=== PATIENT | female | born 1945 | race Caucasian/White ===

== ENCOUNTER → 2016-12-23 | Outpatient (CLI) | payer OTHER ==
[~2016-12-23] MED LIST: CARV25TA2 PO; CPR/500 PO; CRD60 PO; DILT120C68 PO; IBUP-1050 PO; OXYC1TAB3 PO; POTA20TA13 PO; PRED20TA PO; PROC1TAB5 PO; ZFR/8 PO
--- NOTE | 2016-12-23 10:06 | DIAGNOSTIC IMAGING REPORT ---
ULTRASOUND RIGHT UPPER QUADRANT ABDOMEN CLINICAL HISTORY: Right upper quadrant abdominal pain. COMPARISON STUDY: No priors. TECHNIQUE: Real-time, grayscale, and color flow sonography of the right upper quadrant of the abdomen was performed. Images are reviewed in the transverse and longitudinal planes. FINDINGS: Liver: The liver is normal in size and echotexture. There is central intrahepatic biliary ductal dilatation. The main portal vein is patent. There is a heterogeneously hypoechoic lesion in the right lobe of the liver which measures 13.7 x 7.2 x 8.1 cm. Gallbladder: The gallbladder is decompressed and contains a large mobile shadowing gallstone which measures at least 1.3 cm. There is no gallbladder wall thickening or pericholecystic fluid. A sonographic Lopez's sign is reportedly absent. The common bile duct measures up to 0.8 cm in diameter. Pancreas: There is a hypoechoic ovoid structure either within or adjacent to the pancreatic head measuring up to 2.3 cm. Visualized portions of the pancreatic head and body are otherwise normal in appearance. Right kidney: Survey images of the right kidney demonstrate normal size and echotexture. There is no hydronephrosis. Ascites: None. IMPRESSION: 1. There is a heterogeneous hypoechoic mass lesion identified in the right lobe of the liver which measures up to 13.7 cm. This is pathologically indeterminant. Follow-up with a liver protocol abdominal CT scan is recommended for further assessment. 2. There is intra and extrahepatic biliary ductal dilatation. 3. Cholelithiasis without sonographic evidence of acute cholecystitis. 4. There is a 2.3 cm ovoid hypoechoic structure either within or adjacent to the pancreatic head. This could also be assessed on the liver protocol CT. Electronically signed by: Jorge Bass M.D. 12/23/2016 10:05 AM Dictated Date/Time: 12/23/2016 10:01 AM
== END | disposition home or self-care (01) ==
LOC: C.ULTR 09:01
PROVIDERS: ATTEND Internal Medicine
DX: R07.9 Chest pain, unspecified (principal); R10.9 Unspecified abdominal pain; K76.9 Liver disease, unspecified; K83.8 Other specified diseases of biliary tract; K80.20 Calculus of gallbladder without cholecystitis without obstruction; K86.89 Other specified diseases of pancreas

== ENCOUNTER → 2016-12-31 | Outpatient (CLI) | payer OTHER ==
--- NOTE | 2016-12-31 09:49 | DIAGNOSTIC IMAGING REPORT ---
CT SCAN OF THE ABDOMEN COMBO LIVER PROTOCOL CLINICAL HISTORY: Generalized abdominal pain. Abnormal ultrasound. Possible liver and pancreatic lesions. COMPARISON STUDY: Abdominal ultrasound dated 12/23/2016. TECHNIQUE: Before and following the IV administration of 119 cc of Optiray 320, CT scan of the abdomen is performed from the lung bases to the pelvic inlet utilizing the liver protocol. Images are reviewed in the axial, sagittal, and coronal planes. IV contrast was administered without complication. Automated dose control exposure was utilized. CT DOSE: 1049.58 mGy.cm FINDINGS: Lung bases: The heart is top normal in size and without pericardial effusion. There is left basilar atelectasis. Lung bases are otherwise clear. Liver: The contrast-enhanced liver is normal in size, contour, and attenuation. There is a heterogeneous low-attenuation mass lesion identified in the right lobe of the liver spanning segments VII and VIII. This is best seen on axial image #55 and measures approximately 7.5 x 6.5 x 5.5 cm. This lesion does not show arterial phase hypervascularity. The mass extends to the hepatic hilum, and likely invades the common hepatic duct which is filled with soft tissue attenuation material and demonstrates wall thickening and enhancement. There is mild stranding in the hepatic hilum. This causes moderate intrahepatic biliary ductal dilatation. No additional hepatic lesions are identified. There is an associated GIULIA in the right lobe of liver. Hepatic and portal vasculature: Hepatic arterial anatomy is conventional. The hepatic veins, portal veins, superior mesenteric vein, and splenic vein are patent. Gallbladder: Cholelithiasis is noted. The gallbladder is nondistended. Nonspecific pericholecystic stranding is identified. Spleen: Normal in size and attenuation. Pancreas: There is moderate glandular atrophy of the pancreas which is normal in appearance. The pancreatic duct is normal in caliber. Adrenal glands: Unremarkable. Kidneys: No renal calculi are seen on the unenhanced series. The contrast enhanced kidneys demonstrate mild cortical atrophy and are without hydronephrosis. The kidneys enhance symmetrically. Scattered subcentimeter cortical hypodensities likely represent cysts but are too small for definitive characterization. Small parapelvic cysts are noted bilaterally. There is a retroaortic left renal vein. Abdominal vasculature: The abdominal aorta is normal in course and caliber noting mild atherosclerotic calcification. Stomach and bowel: There is a large hiatal hernia, with the majority of the stomach located in the thoracic cavity. The duodenum is normal in configuration. Visualized portions of the small bowel and colon are normal in caliber. There is no bowel obstruction. Several small bowel loops are matted along the ventral abdominal wall, likely representing adhesions. Peritoneum: There is no intraperitoneal free air or abdominal ascites. There is a small fat-containing umbilical hernia. There is evidence of previous ventral hernia repair. Lymphadenopathy: There is centrally necrotic lymphadenopathy seen within the cyndy hepatis/portacaval region. This measures 3.7 x 4.1 cm in aggregate dimension as seen on image #125. A 1.4 cm gastrohepatic node is seen on image #96. Lymph nodes at the gastroesophageal junction measure up to 1.5 cm seen on image #49. Skeletal structures: The skeletal structures are osteopenic. Mild lumbosacral spondylosis is observed. A small hemangioma is noted in the body of T12. No lytic or blastic lesions are seen. IMPRESSION: 1. There is a large and heterogeneous mass lesion in the right lobe of liver measuring up to 7.5 cm as detailed above. No additional hepatic masses are identified. A primary hepatic neoplasm such as cholangiocarcinoma is favored. Enhancement appendix are not typical for hepatocellular carcinoma. Metastatic disease is considered less likely but is a differential consideration. ERCP is recommended for further assessment. 2. The mass lesion extends to the hepatic hilum and invades the common hepatic duct. There is moderate associated intrahepatic biliary ductal dilatation. 3. Centrally necrotic cyndy hepatic/portacaval lymphadenopathy as well as additional enlarged upper abdominal lymph nodes are consistent with shandra metastasis. 4. Cholelithiasis is noted. There is nonspecific pericholecystic inflammation. Correlate clinically for evidence of acute cholecystitis. 5. Large hiatal hernia. 6. The hepatic and portal vessels are patent. 7. Additional findings as above. Electronically signed by: Jorge Bass M.D. 12/31/2016 9:48 AM Dictated Date/Time: 12/31/2016 9:32 AM
== END | disposition home or self-care (01) ==
LOC: C.CTS 08:33
PROVIDERS: ATTEND Internal Medicine
DX: R10.9 Unspecified abdominal pain (principal); R93.8 Abnormal findings on diagnostic imaging of other specified body structures

== ENCOUNTER → 2017-01-01 | Outpatient (CLI) | payer OTHER ==
[2017-01-01 12:37] LABS: BASO % 0.4 %; BASO ABS # 0.03 K/uL (0-0.2); COMPLETE YES; EOS % 3.7 %; HEMATOCRIT 35.3 % (37-47); IG% 0.6 %; LYMPH % 10.9 %; LYMPH ABS # 0.74 K/uL (1.2-3.4); MEAN CELL VOLUME 74.2 fL (80-100); MEAN CORPUSCULAR HEMOGLOBIN 24.4 pg (25-34); MEAN CORPUSCULAR HGB CONC 32.9 g/dl (32-36); MEAN PLATELET VOLUME 11.1 fL (7.4-10.4); MONO % 11.1 %; NEUT % 73.3 %; PLATELET COUNT 229 K/uL (130-400); RED BLOOD COUNT 4.76 M/uL (4.2-5.4); WHITE BLOOD COUNT 6.78 K/uL (4.8-10.8)
[2017-01-01 12:55] LABS: ALT/SGPT 215 U/L (12-78); AMYLASE 33 U/L (25-115); BLOOD UREA NITROGEN 7 mg/dl (7-18); BUN/CREATININE RATIO 9.3 (10-20); CALCIUM 9.6 mg/dl (8.5-10.1); CARBON DIOXIDE 20 mmol/L (21-32); CHLORIDE 106 mmol/L (98-107); CREATININE 0.75 mg/dl (0.60-1.20); GLUCOSE 127 mg/dl (70-99); POTASSIUM 3.5 mmol/L (3.5-5.1); SODIUM 138 mmol/L (136-145)
[2017-01-01 13:05] LABS: ALB/GLOB RATIO 0.6 (0.9-2); ALKALINE PHOSPHATASE 692 U/L (45-117); AST/SGOT 280 U/L (15-37)
== END | disposition home or self-care (01) ==
LOC: C.LABBFT 09:52
PROVIDERS: ATTEND Internal Medicine
DX: R07.9 Chest pain, unspecified (principal); R10.9 Unspecified abdominal pain; R16.0 Hepatomegaly, not elsewhere classified

== ENCOUNTER 2017-01-02 14:21 | Inpatient (IN) | payer OTHER ==
[~2017-01-02] VITALS: Ht 167.6 cm; Wt 77.0 kg
[2017-01-02] MEDS ORDERED: SODIUM CHLORIDE 0.9% 1000ML 1,000 ML IV STA (14:24)
--- NOTE | 2017-01-02 14:48 | EMERGENCY ROOM VISIT NOTE ---
History Report prepared by Tato: True Carmona Under the Supervision of: Dr. Rick Lazo M.D. First contact with patient: 14:24 Chief Complaint: HYPOTENSION Stated Complaint: LOW BP History of Present Illness The patient is a 71 year old female who presents to the Emergency Room with complaints of sudden hypotension beginning a few hours prior to arrival. As per daughter, the patient associates palpitations, weakness, fatigue, pale skin, and decreased appetite with today's symptoms. She notes the patient's palpitations and weakness have been going on for about two weeks. The daughter states the patient previously had imaging performed for a possible liver tumor. She notes the patient has a history of hypertension. The patient denies abdominal pain. 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 Review of Systems See HPI for pertinent positives & negatives. A total of 10 systems reviewed and were otherwise negative. Past Medical & Surgical Medical Problems: (1) Hypertension Family History Patient reports no known family medical history. Social History Smoking Status: Never Smoker Marital Status: Occupation Status: retired Current/Historical Medications No Active Prescriptions or Reported Meds Allergies Coded Allergies: No Known Allergies (Unverified , 01/02/17) Physical Exam Vital Signs Date Time Temp Pulse Resp B/P Pulse Ox O2 Delivery O2 Flow Rate FiO2 01/02/17 16:41 98 18 136/94 96 Room Air 01/02/17 16:37 106 18 136/94 96 Room Air 01/02/17 15:51 101 23 01/02/17 15:50 98 01/02/17 15:46 107 19 117/85 01/02/17 15:43 123/88 01/02/17 15:41 102 22 01/02/17 15:38 115/90 01/02/17 15:36 107 20 01/02/17 15:34 124/81 01/02/17 15:31 114 18 01/02/17 15:30 130/82 01/02/17 15:26 156 18 01/02/17 15:21 157 18 129/94 96 Room Air 163 109/80 172 101/68 01/02/17 15:21 153 21 01/02/17 15:16 158 18 01/02/17 15:11 163 22 101/68 01/02/17 15:10 109/80 01/02/17 15:09 129/94 01/02/17 15:08 162 01/02/17 15:06 159 23 01/02/17 15:01 161 21 01/02/17 14:56 123/75 01/02/17 14:29 37.0 88 20 120/79 99 Room Air Physical Exam CONSTITUTIONAL: Mild distress. HEENT: No icterus, moist mucous membranes NECK: No meningismus, trachea is midline. CARDIOVASCULAR: Regular rate, normal perfusion RESPIRATORY: Unlabored breathing. Clear to auscultation. GASTROINTESTINAL: Non-tender GENITOURINARY: No flank tenderness MUSCULOSKELETAL: Full range of motion NEUROLOGIC: No acute gross focal deficits. PSYCHIATRIC: Normal affect SKIN: Appears slightly jaundiced. Medical Decision & Procedures ER Provider Diagnostic Interpretation: Previous CT scan on 12/31/16: CT SCAN OF THE ABDOMEN COMBO LIVER PROTOCOL CLINICAL HISTORY: Generalized abdominal pain. Abnormal ultrasound. Possible liver and pancreatic lesions. COMPARISON STUDY: Abdominal ultrasound dated 12/23/2016. TECHNIQUE: Before and following the IV administration of 119 cc of Optiray 320, CT scan of the abdomen is performed from the lung bases to the pelvic inlet utilizing the liver protocol. Images are reviewed in the axial, sagittal, and coronal planes. IV contrast was administered without complication. Automated dose control exposure was utilized. CT DOSE: 1049.58 mGy.cm FINDINGS: Lung bases: The heart is top normal in size and without pericardial effusion. There is left basilar atelectasis. Lung bases are otherwise clear. Liver: The contrast-enhanced liver is normal in size, contour, and attenuation. There is a heterogeneous low-attenuation mass lesion identified in the right lobe of the liver spanning segments VII and VIII. This is best seen on axial image #55 and measures approximately 7.5 x 6.5 x 5.5 cm. This lesion does not show arterial phase hypervascularity. The mass extends to the hepatic hilum, and likely invades the common hepatic duct which is filled with soft tissue attenuation material and demonstrates wall thickening and enhancement. There is mild stranding in the hepatic hilum. This causes moderate intrahepatic biliary ductal dilatation. No additional hepatic lesions are identified. There is an associated GIULIA in the right lobe of liver. Hepatic and portal vasculature: Hepatic arterial anatomy is conventional. The hepatic veins, portal veins, superior mesenteric vein, and splenic vein are patent. Gallbladder: Cholelithiasis is noted. The gallbladder is nondistended. Nonspecific pericholecystic stranding is identified. Spleen: Normal in size and attenuation. Pancreas: There is moderate glandular atrophy of the pancreas which is normal in appearance. The pancreatic duct is normal in caliber. Adrenal glands: Unremarkable. Kidneys: No renal calculi are seen on the unenhanced series. The contrast enhanced kidneys demonstrate mild cortical atrophy and are without hydronephrosis. The kidneys enhance symmetrically. Scattered subcentimeter cortical hypodensities likely represent cysts but are too small for definitive characterization. Small parapelvic cysts are noted bilaterally. There is a retroaortic left renal vein. Abdominal vasculature: The abdominal aorta is normal in course and caliber noting mild atherosclerotic calcification. Stomach and bowel: There is a large hiatal hernia, with the majority of the stomach located in the thoracic cavity. The duodenum is normal in configuration. Visualized portions of the small bowel and colon are normal in caliber. There is no bowel obstruction. Several small bowel loops are matted along the ventral abdominal wall, likely representing adhesions. Peritoneum: There is no intraperitoneal free air or abdominal ascites. There is a small fat-containing umbilical hernia. There is evidence of previous ventral hernia repair. Lymphadenopathy: There is centrally necrotic lymphadenopathy seen within the cyndy hepatis/portacaval region. This measures 3.7 x 4.1 cm in aggregate dimension as seen on image #125. A 1.4 cm gastrohepatic node is seen on image #96. Lymph nodes at the gastroesophageal junction measure up to 1.5 cm seen on image #49. Skeletal structures: The skeletal structures are osteopenic. Mild lumbosacral spondylosis is observed. A small hemangioma is noted in the body of T12. No lytic or blastic lesions are seen. IMPRESSION: 1. There is a large and heterogeneous mass lesion in the right lobe of liver measuring up to 7.5 cm as detailed above. No additional hepatic masses are identified. A primary hepatic neoplasm such as cholangiocarcinoma is favored. Enhancement appendix are not typical for hepatocellular carcinoma. Metastatic disease is considered less likely but is a differential consideration. ERCP is recommended for further assessment. 2. The mass lesion extends to the hepatic hilum and invades the common hepatic duct. There is moderate associated intrahepatic biliary ductal dilatation. 3. Centrally necrotic cyndy hepatic/portacaval lymphadenopathy as well as additional enlarged upper abdominal lymph nodes are consistent with shandra metastasis. 4. Cholelithiasis is noted. There is nonspecific pericholecystic inflammation. Correlate clinically for evidence of acute cholecystitis. 5. Large hiatal hernia. 6. The hepatic and portal vessels are patent. 7. Additional findings as above. Electronically signed by: Jorge Bass M.D. 12/31/2016 9:48 AM Laboratory Results 01/02/17 15:05 Red Blood Count 4.92, Mean Corpuscular Volume 71.5, Mean Corpuscular Hemoglobin 24.2, Mean Corpuscular Hemoglobin Concent 33.8, Mean Platelet Volume 10.0, Neutrophils (%) (Auto) 79.5, Lymphocytes (%) (Auto) 7.5, Monocytes (%) (Auto) 11.4, Eosinophils (%) (Auto) 1.1, Basophils (%) (Auto) 0.3, Neutrophils # (Auto ) 8.48, Lymphocytes # (Auto) 0.80, Monocytes # (Auto) 1.21, Eosinophils # (Auto ) 0.12, Basophils # (Auto) 0.03 01/02/17 15:05 Test 01/02/17 14:56 01/02/17 15:05 Urine Color ORANGE Urine Appearance TURBID (CLEAR) Urine pH 5.5 (4.5-7.5) Urine Specific [place] 1.020 (1.000-1.030) Urine Protein 2+ (NEG) Urine Glucose (UA) TRACE (NEG) Urine Ketones NEG (NEG) Urine Occult Blood NEG (NEG) Urine Nitrite POS (NEG) Urine Bilirubin 3+ (NEG) Urine Urobilinogen NEG (NEG) Urine Leukocyte Esterase MODERATE (NEG) Urine WBC (Auto) 10-30 /hpf (0-5) Urine RBC (Auto) 5-10 /hpf (0-4) Urine Hyaline Casts (Auto) 0 /lpf (0-5) Urine Epithelial Cells (Auto) >30 /lpf (0-5) Urine Bacteria (Auto) 3+ (NEG) Urine Crystals URIC ACID (NONE PRSENT) Urine Pathogenic Casts /lpf (0) White Blood Count 10.66 K/uL (4.8-10.8) Red Blood Count 4.92 M/uL (4.2-5.4) Hemoglobin 11.9 g/dL (12.0-16.0) Hematocrit 35.2 % (37-47) Mean Corpuscular Volume 71.5 fL (80-100) Mean Corpuscular Hemoglobin 24.2 pg (25-34) Mean Corpuscular Hemoglobin Concent 33.8 g/dl (32-36) Platelet Count 267 K/uL (130-400) Mean Platelet Volume 10.0 fL (7.4-10.4) Neutrophils (%) (Auto) 79.5 % Lymphocytes (%) (Auto) 7.5 % Monocytes (%) (Auto) 11.4 % Eosinophils (%) (Auto) 1.1 % Basophils (%) (Auto) 0.3 % Neutrophils # (Auto) 8.48 K/uL (1.4-6.5) Lymphocytes # (Auto) 0.80 K/uL (1.2-3.4) Monocytes # (Auto) 1.21 K/uL (0.11-0.59) Eosinophils # (Auto) 0.12 K/uL (0-0.5) Basophils # (Auto) 0.03 K/uL (0-0.2) RDW Standard Deviation 44.4 fL (36.4-46.3) RDW Coefficient of Variation 17.2 % (11.5-14.5) Immature Granulocyte % (Auto) 0.2 % Immature Granulocyte # (Auto) 0.02 K/uL (0.00-0.02) Prothrombin Time 11.3 SECONDS (9.0-12.0) Prothromb Time International Ratio 1.1 (0.9-1.1) Anion Gap 15.0 mmol/L (3-11) Est Creatinine Clear Calc Drug Dose 64.7 ml/min Estimated GFR () 80.5 Estimated GFR (Non- 69.4 BUN/Creatinine Ratio 7.8 (10-20) Calcium Level 9.0 mg/dl (8.5-10.1) Magnesium Level 2.0 mg/dl (1.8-2.4) Total Bilirubin 4.0 mg/dl (0.2-1) Direct Bilirubin 3.4 mg/dl (0-0.2) Aspartate Amino Transf (AST/SGOT) 234 U/L (15-37) Alanine Aminotransferase (ALT/SGPT) 210 U/L (12-78) Alkaline Phosphatase 683 U/L (45-117) Total Protein 8.3 gm/dl (6.4-8.2) Albumin 3.0 gm/dl (3.4-5.0) Lipase 188 U/L (73-393) Thyroid Stimulating Hormone (TSH) 0.409 uIu/ml (0.300-4.500) Labs reviewed by ED physician. Medications Administered Medications (Trade) Dose Ordered Sig/Luis Route Start Time Stop Time Status Last Admin Dose Admin Sodium Chloride (Nss 1000ml) 1,000 ml @ 0 mls/hr Q0M STAT IV 01/02/17 14:24 01/02/17 14:26 DC 01/02/17 15:07 999 MLS/HR Adenosine (Adenosine IV) 6 mg STK-MED ONCE IV 01/02/17 15:22 01/02/17 15:24 DC 01/02/17 15:27 6 MG ECG Indication: palpitations Rate (beats per minute): 160 Rhythm: other (narrow complex tachycardia) Findings: nonspecific-ST abn, other (normal axis) Change: Repeat EKG: Sinus rhythm. Rate 100. Normal axis. Nonspecific-ST findings. ED Course 1435: Past medical records reviewed. The patient was evaluated in room C9. A complete history and physical examination was performed. 1424: Ordered Sodium Chloride 1,000 ml @ 0 mls/hr Wide Open IV. 1534: Ordered Adenosine 6 mg IV. 1656: Ordered Potassium Chloride 20 meq IV. 1700: I spoke to EMETERIO Spring (Hospitalist) about the patient's case, and he will follow the patient for further evaluation. Medical Decision Differential diagnoses include but are not limited to; metabolic or liver disease, dysrhtyhmia. 71-year-old [place]ut[place]-speaking patient presents into the emergency room with her 2 daughters for evaluation of persistent palpitations and worsening generalized weakness for 2 weeks without clear ameliorating or exacerbating factors although she seems to be dizzy with exertion or standing. She is noted to have a gradual onset of jaundice over the last several weeks and MRI was reportedly obtained just the other day and was noted to have a concern for cancer of these results have not yet been discussed with the patient or family officially. Patient in SVT 160 on the monitor and converted to normal sinus rhythm after adenosine 6 mg. Recent MRI report reviewed and noted to have a large hepatic tumor concerning for cholangiocarcinoma. Admission arranged with Dr. Koo Consults Time Called: 165 Consulting Physician: EMETERIO Spring (Hospitalist) Returned Call: 1700 I spoke to EMETERIO Spring (Hospitalist) about the patient's case, and he will follow the patient for further evaluation. Impression Primary Impression: Hepatic cancer Additional Impression: SVT (supraventricular tachycardia) Scribe Attestation The scribe's documentation has been prepared under my direction and personally reviewed by me in its entirety. I confirm that the note above accurately reflects all work, treatment, procedures, and medical decision making performed by me. Departure Information Dispostion Being Evaluated By Hospitalist (EMETERIO Spring (Hospitalist) ) Prescriptions No Active Prescriptions or Reported Meds Referrals Agata Friend M.D. (PCP) Problem Qualifiers
[2017-01-02 15:13] LABS: URINE APPEARANCE TURBID (CLEAR); URINE COLOR ORANGE; URINE EPITHELIAL CELL AUTO >30 /lpf (0-5); URINE NITRITE POS (NEG); URINE PH 5.5 (4.5-7.5); UROBILINOGEN NEG (NEG); ZZUR CULT IF INDIC CLEAN CATCH YES
[2017-01-02 15:15] LABS: HEMATOCRIT 35.2 % (37-47); MEAN CELL VOLUME 71.5 fL (80-100); MEAN CORPUSCULAR HEMOGLOBIN 24.2 pg (25-34); MEAN CORPUSCULAR HGB CONC 33.8 g/dl (32-36); PLATELET COUNT 267 K/uL (130-400); RED BLOOD COUNT 4.92 M/uL (4.2-5.4); WHITE BLOOD COUNT 10.66 K/uL (4.8-10.8)
[2017-01-02] MEDS ORDERED: ADENOSINE IV SOLN 3 MG/ML 2 ML VIAL IV ONE (15:22)
[2017-01-02 15:23] LABS: MANUAL MICROSCOPIC REQUIRED? NO; REVIEW REQ? YES; URINE BILIRUBIN 3+ (NEG)
[2017-01-02 15:23] LABS: INR 1.1 (0.9-1.1); PROTHROMBIN TIME (PATIENT) 11.3 SECONDS (9.0-12.0)
[2017-01-02 15:34] LABS: BUN/CREATININE RATIO 7.8 (10-20); CREATININE 0.85 mg/dl (0.60-1.20); POTASSIUM 3.2 mmol/L (3.5-5.1)
[2017-01-02] MEDS ORDERED: ADENOSINE IV SOLN 3 MG/ML 2 ML VIAL IV STA (15:34)
[2017-01-02 15:42] LABS: BASO % 0.3 %; BASO ABS # 0.03 K/uL (0-0.2); COMPLETE YES; EOS % 1.1 %; IG% 0.2 %; LYMPH % 7.5 %; MONO % 11.4 %; NEUT % 79.5 %
[2017-01-02 15:56] LABS: THYROID STIMULATING HORMONE 0.409 uIu/ml (0.300-4.500)
[2017-01-02] MEDS: POTASSIUM CHLORIDE 10 MEQ / 100ML WTR IV SCH ×2 (17:33→19:46)
[2017-01-02] MEDS ORDERED: MoRPHine SULFATE 4 MG/ML 1 ML CARP\\VIAL IV PRN (17:45)
[2017-01-02] MEDS ORDERED: MoRPHine SULFATE 2 MG/ML CARP IV PRN (17:45)
[2017-01-02] MEDS ORDERED: ZOLPIDEM TARTRATE 5 MG TAB PO PRN (17:45)
[2017-01-02] MEDS ORDERED: PROMETHAZINE HCL INJ 12.5 MG in SODIUM CHLORIDE 0.9% 50ML 50 ML IV PRN (17:45)
[2017-01-02] MEDS ORDERED: ONDANSETRON INJ 2 MG/ML 2 ML VIAL IV PRN (17:45)
[2017-01-02] MEDS ORDERED: DiphenhydrAMINE HCL 50 MG/ML VIAL IV PRN (17:45)
[2017-01-02] MEDS ORDERED: LORAZEPAM 2 MG/ML 1 ML VIAL IV PRN (17:45)
[2017-01-02 18:25] VITALS: BP 153/88; PULSE 95; TEMP 36.8; O2SAT 95; Ht 167.6 cm; Wt 77.0 kg
[2017-01-02] MEDS ORDERED: LORAZEPAM INJ 0.5 MG in SYRINGE 0.75 ML IV PRN (19:45)
--- NOTE | 2017-01-02 20:16 | History and Physical ---
History & Physical Date & Time of Service: Jan 02, 2017 at 20:03 Chief Complaint: Hepatic Cancer Svt Primary Care Physician: Agata Friend M.D. History of Present Illness Source: patient, family The patient is a 71-year-old [place]an only speaking patient, his daughter that acts as a technical project lead is present, who presents to the emergency department with the sudden onset of palpitations, weakness, fatigue, and skin pallor that began a few hours prior to arrival. The daughter notes that the patient has had palpitations and weakness intermittently over the past 2 weeks, and recently had a CAT scan performed of her abdomen and pelvis showed a possible liver tumor. She does have a history of hypertension, but is no longer taking medications. Past Medical/Surgical History Medical Problems: (1) Hypertension Status: Chronic Family History Patient reports no known family medical history. Social History Smoking Status: Never Smoker Smokeless Tobacco Use: No Alcohol Use: none Drug Use: none Marital Status: Housing status: lives with family Occupational Status: retired Multi-Drug Resistant Organisms History of MDRO: No Allergies Coded Allergies: No Known Allergies (Unverified , 01/02/17) Home Medications No Active Prescriptions or Reported Meds Review of Systems The patient , as relayed through her daughter acting as a technical project lead, denies cough, lower extremity swelling, vision change, hearing change, sore throat, fevers, chills, sweats, weight change, nausea, vomiting, abdominal pain, pelvic pain, blood in urine or stool, dysuria, urinary frequency or urgency, lightheadedness, dizziness, headache, memory loss, rash, abnormal bruising or bleeding, imbalance, focal or generalized weakness, numbness or tingling in arms or legs, arthralgias or myalgias, back or neck pain, night sweats, or allergy symptoms. The review of systems is otherwise negative other than for that already noted above, and at least 10 systems have been reviewed. Physical Exam Vital Signs Date Time Temp Pulse Resp B/P Pulse Ox O2 Delivery O2 Flow Rate FiO2 01/02/17 18:25 36.8 95 20 153/88 95 Room Air 01/02/17 17:32 99 18 138/102 98 Room Air 01/02/17 16:41 98 18 136/94 96 Room Air 01/02/17 16:37 106 18 136/94 96 Room Air 01/02/17 15:51 101 23 01/02/17 15:50 98 01/02/17 15:46 107 19 117/85 01/02/17 15:43 123/88 01/02/17 15:41 102 22 01/02/17 15:38 115/90 01/02/17 15:36 107 20 01/02/17 15:34 124/81 01/02/17 15:31 114 18 01/02/17 15:30 130/82 01/02/17 15:26 156 18 01/02/17 15:21 157 18 129/94 96 Room Air 163 109/80 172 101/68 01/02/17 15:21 153 21 01/02/17 15:16 158 18 01/02/17 15:11 163 22 101/68 01/02/17 15:10 109/80 01/02/17 15:09 129/94 01/02/17 15:08 162 01/02/17 15:06 159 23 01/02/17 15:01 161 21 01/02/17 14:56 123/75 01/02/17 14:29 37.0 88 20 120/79 99 Room Air The patient is awake, well-developed and adequately nourished, alert and oriented 3, normocephalic and atraumatic, lying in bed and in no acute distress. HEENT--PERRL, EOMI, mucous membranes and oropharynx dry. Neck--supple, no JVD or bruits, thyroid normal, trachea midline, no adenopathy. Heart--normal S1 and S2, no extra beats, no murmurs, rubs or gallops. Lungs--clear bilaterally with good air movement, no respiratory distress, no accessory muscle use. Abdomen--normal bowel sounds and soft, nontender and nondistended, no hernias or masses, no organomegaly. Extremities--no cyanosis, clubbing or edema. There are good distal pulses b/l. Dermatologic--normal skin turgor, normal color, warm and dry, no abnormal lymph nodes, no rash. Neurologic--cranial nerves II through XII grossly intact, motor and sensory examination normal. Rheumatologic--normal range of motion, nontender, muscles and joints. Psychiatric--normal affect. Diagnostics Laboratory Results Results Past 24 Hours Test 01/02/17 14:56 2/18/17 15:05 Range/Units Urine Color ORANGE Urine Appearance TURBID CLEAR Urine pH 5.5 4.5-7.5 Urine Specific Golden 1.020 1.000-1.030 Urine Protein 2+ NEG Urine Glucose (UA) TRACE NEG Urine Ketones NEG NEG Urine Occult Blood NEG NEG Urine Nitrite POS NEG Urine Bilirubin 3+ NEG Urine Urobilinogen NEG NEG Urine Leukocyte Esterase MODERATE NEG Urine WBC (Auto) 10-30 0-5 /hpf Urine RBC (Auto) 5-10 0-4 /hpf Urine Hyaline Casts (Auto) 0 0-5 /lpf Urine Epithelial Cells (Auto) >30 0-5 /lpf Urine Bacteria (Auto) 3+ NEG Urine Crystals URIC ACID NONE PRSENT Urine Pathogenic Casts 0 /lpf White Blood Count 10.66 4.8-10.8 K/uL Red Blood Count 4.92 4.2-5.4 M/uL Hemoglobin 11.9 12.0-16.0 g/dL Hematocrit 35.2 37-47 % Mean Corpuscular Volume 71.5 80-100 fL Mean Corpuscular Hemoglobin 24.2 25-34 pg Mean Corpuscular Hemoglobin Concent 33.8 32-36 g/dl Platelet Count 267 130-400 K/uL Mean Platelet Volume 10.0 7.4-10.4 fL Neutrophils (%) (Auto) 79.5 % Lymphocytes (%) (Auto) 7.5 % Monocytes (%) (Auto) 11.4 % Eosinophils (%) (Auto) 1.1 % Basophils (%) (Auto) 0.3 % Neutrophils # (Auto) 8.48 1.4-6.5 K/uL Lymphocytes # (Auto) 0.80 1.2-3.4 K/uL Monocytes # (Auto) 1.21 0.11-0.59 K/uL Eosinophils # (Auto) 0.12 0-0.5 K/uL Basophils # (Auto) 0.03 0-0.2 K/uL RDW Standard Deviation 44.4 36.4-46.3 fL RDW Coefficient of Variation 17.2 11.5-14.5 % Immature Granulocyte % (Auto) 0.2 % Immature Granulocyte # (Auto) 0.02 0.00-0.02 K/uL Prothrombin Time 11.3 9.0-12.0 SECONDS Prothromb Time International Ratio 1.1 0.9-1.1 Sodium Level 138 136-145 mmol/L Potassium Level 3.2 3.5-5.1 mmol/L Chloride Level 103 98-107 mmol/L Carbon Dioxide Level 20 21-32 mmol/L Anion Gap 15.0 3-11 mmol/L Blood Urea Nitrogen 7 7-18 mg/dl Creatinine 0.85 0.60-1.20 mg/dl Est Creatinine Clear Calc Drug Dose 64.7 ml/min Estimated GFR () 80.5 Estimated GFR (Non- 69.4 BUN/Creatinine Ratio 7.8 10-20 Random Glucose 165 70-99 mg/dl Calcium Level 9.0 8.5-10.1 mg/dl Magnesium Level 2.0 1.8-2.4 mg/dl Total Bilirubin 4.0 0.2-1 mg/dl Direct Bilirubin 3.4 0-0.2 mg/dl Aspartate Amino Transf (AST/SGOT) 234 15-37 U/L Alanine Aminotransferase (ALT/SGPT) 210 12-78 U/L Alkaline Phosphatase 683 45-117 U/L Total Protein 8.3 6.4-8.2 gm/dl Albumin 3.0 3.4-5.0 gm/dl Lipase 188 73-393 U/L Thyroid Stimulating Hormone (TSH) 0.409 0.300-4.500 uIu/ml Microbiology Results 01/02/17 Urine Culture, Received Pending Diagnostic Radiology Patient Name: AXEL BLANTON I Unit Number: [id number] Dictated: 12/31/16931 Transcribed: 12/31/16931 EV Printed Date/Time: [~ rep prt dt]/[~ rep prt tm] [~ rep ct labl] - [~ rep ct ivnm] [facility] [place] [address] Dictated: 12/31/16931 Transcribed: 12/31/16931 EV Printed Date/Time: [~ rep prt dt]/[~ rep prt tm] [~ rep ct labl] - [~ rep ct ivnm] [~ rep ct add3]] CT SCAN OF THE ABDOMEN COMBO LIVER PROTOCOL CLINICAL HISTORY: Generalized abdominal pain. Abnormal ultrasound. Possible liver and pancreatic lesions. COMPARISON STUDY: Abdominal ultrasound dated 12/23/2016. TECHNIQUE: Before and following the IV administration of 119 cc of Optiray 320, CT scan of the abdomen is performed from the lung bases to the pelvic inlet utilizing the liver protocol. Images are reviewed in the axial, sagittal, and coronal planes. IV contrast was administered without complication. Automated dose control exposure was utilized. CT DOSE: 1049.58 mGy.cm FINDINGS: Lung bases: The heart is top normal in size and without pericardial effusion. There is left basilar atelectasis. Lung bases are otherwise clear. Liver: The contrast-enhanced liver is normal in size, contour, and attenuation. There is a heterogeneous low-attenuation mass lesion identified in the right lobe of the liver spanning segments VII and VIII. This is best seen on axial image #55 and measures approximately 7.5 x 6.5 x 5.5 cm. This lesion does not show arterial phase hypervascularity. The mass extends to the hepatic hilum, and likely invades the common hepatic duct which is filled with soft tissue attenuation material and demonstrates wall thickening and enhancement. There is mild stranding in the hepatic hilum. This causes moderate intrahepatic biliary ductal dilatation. No additional hepatic lesions are identified. There is an associated GIULIA in the right lobe of liver. Hepatic and portal vasculature: Hepatic arterial anatomy is conventional. The hepatic veins, portal veins, superior mesenteric vein, and splenic vein are patent. Gallbladder: Cholelithiasis is noted. The gallbladder is nondistended. Nonspecific pericholecystic stranding is identified. Spleen: Normal in size and attenuation. Pancreas: There is moderate glandular atrophy of the pancreas which is normal in appearance. The pancreatic duct is normal in caliber. Adrenal glands: Unremarkable. Kidneys: No renal calculi are seen on the unenhanced series. The contrast enhanced kidneys demonstrate mild cortical atrophy and are without hydronephrosis. The kidneys enhance symmetrically. Scattered subcentimeter cortical hypodensities likely represent cysts but are too small for definitive characterization. Small parapelvic cysts are noted bilaterally. There is a retroaortic left renal vein. Abdominal vasculature: The abdominal aorta is normal in course and caliber noting mild atherosclerotic calcification. Stomach and bowel: There is a large hiatal hernia, with the majority of the stomach located in the thoracic cavity. The duodenum is normal in configuration. Visualized portions of the small bowel and colon are normal in caliber. There is no bowel obstruction. Several small bowel loops are matted along the ventral abdominal wall, likely representing adhesions. Peritoneum: There is no intraperitoneal free air or abdominal ascites. There is a small fat-containing umbilical hernia. There is evidence of previous ventral hernia repair. Lymphadenopathy: There is centrally necrotic lymphadenopathy seen within the cyndy hepatis/portacaval region. This measures 3.7 x 4.1 cm in aggregate dimension as seen on image #125. A 1.4 cm gastrohepatic node is seen on image #96. Lymph nodes at the gastroesophageal junction measure up to 1.5 cm seen on image #49. Skeletal structures: The skeletal structures are osteopenic. Mild lumbosacral spondylosis is observed. A small hemangioma is noted in the body of T12. No lytic or blastic lesions are seen. IMPRESSION: 1. There is a large and heterogeneous mass lesion in the right lobe of liver measuring up to 7.5 cm as detailed above. No additional hepatic masses are identified. A primary hepatic neoplasm such as cholangiocarcinoma is favored. Enhancement appendix are not typical for hepatocellular carcinoma. Metastatic disease is considered less likely but is a differential consideration. ERCP is recommended for further assessment. 2. The mass lesion extends to the hepatic hilum and invades the common hepatic duct. There is moderate associated intrahepatic biliary ductal dilatation. 3. Centrally necrotic cyndy hepatic/portacaval lymphadenopathy as well as additional enlarged upper abdominal lymph nodes are consistent with shandra metastasis. 4. Cholelithiasis is noted. There is nonspecific pericholecystic inflammation. Correlate clinically for evidence of acute cholecystitis. 5. Large hiatal hernia. 6. The hepatic and portal vessels are patent. 7. Additional findings as above. Electronically signed by: Jorge Bass M.D. 12/31/2016 9:48 AM Dictated Date/Time: 12/31/2016 9:32 AM The status of this report is Signed. Draft = Not yet reviewed or approved by Radiologist. Signed = Reviewed and approved by Radiologist. <AttendingPhy>Roseann Black P.A.</AttendingPhy> <FamilyPhy>Agata Friend M.D.</FamilyPhy> <PrimaryPhy>Agata Friend M.D.</PrimaryPhy > <UnitNumber>[id number]</UnitNumber> <VisitNumber>[id number]</VisitNumber> < PatientName>AXEL BLANTON I</PatientName> <DateOfBirth>1945</ DateOfBirth> <Location>[facility]</Location> <ServiceDate>12/31/16</ServiceDate> <MNE >ESINDI</MNE> <OrderingPhy>Roseann Black A. P.A.</OrderingPhy> < OrderingPhyMNE>f rep ord dr solo</OrderingPhyMNE> <DictatingPhyMNE>f rep dict dr solo</DictatingPhyMNE> <CCListMNE>f rep ct mne</CCListMNE> <AdmittingPhyMNE>f pt admit dr solo</AdmittingPhyMNE> <AttendingPhyMNE>f pt attend dr solo</ AttendingPhyMNE> <ConsultingPhyMNE>f pt consult dr solo</ConsultingPhyMNE> <FamilyPhyMNE>f pt fam dr solo</FamilyPhyMNE> <OtherPhyMNE>f pt other dr solo</OtherPhyMNE> < PrimaryPhyMNE>f pt prim care dr solo</PrimaryPhyMNE> <ReferringPhyMNE>f pt referring dr solo</ReferringPhyMNE> EKG EKG #1 shows SVT at 160 bpm. EKG #2, after administration of adenosine 6 mg IV, shows sinus tachycardia at 108 bpm, with nonspecific ST-T changes. Impression Assessment and Plan SVT, converted to sinus tachycardia after administration of adenosine 6 mg IV-- the patient be admitted to the telemetry unit, for serial cardiac enzymes, cardiac rhythm monitoring and a 2-D echocardiogram with Dopplers. Her potassium is low at 3.2, and may be the trigger that aggravated her underlying predisposition toward SVT. Her potassium will be replaced with both IV and oral supplementation. We'll consult cardiology to see patient in a.m. Liver cancer/most likely primary tumor such as cholangiocarcinoma with shandra metastasis noted on CT of December 31. We'll order an MRCP tonight, and consult gastroenterology for possible ERCP. We'll also consult oncology. The patient will be made nothing by mouth after midnight in the event that a procedure is needed be done tomorrow. She'll be placed on normal saline with potassium chloride 20 mEq at 100 ML's per hour. Repeat CBC with differential, BMP, liver profile, and magnesium level in the a.m. We'll place on Protonix 40 mg IV daily, and Zofran 4 mg IV every 6 hours when necessary. Hyperglycemia--place on Accu-Cheks before meals and at bedtime with NovoLog coverage. Check a hemoglobin A1c. Level of Care Telemetry Advanced Directives Existing Advance Directive: No Existing Living Will: No Existing Power of Sole Polisher: No Resuscitation Status FULL RESUSCITATION VTE Prophylaxis VTE Risk Assessment Done? Y/N: Yes Risk Level: High Given or contraindicated: SCD's
[2017-01-02] MEDS: NSS + 20MEQ KCL 1000ML 1,000 ML IV SCH (21:08)
[2017-01-02 23:45] VITALS: BP 150/90; PULSE 87; TEMP 36.3; O2SAT 94
[2017-01-03 03:40] VITALS: BP 136/82; PULSE 91; TEMP 36.4; O2SAT 94
[2017-01-03 07:13] LABS: BASO % 0.2 %; BASO ABS # 0.02 K/uL (0-0.2); COMPLETE YES; EOS % 1.2 %; HEMATOCRIT 32.2 % (37-47); IG% 0.1 %; LYMPH % 9.8 %; LYMPH ABS # 0.82 K/uL (1.2-3.4); MEAN CELL VOLUME 71.9 fL (80-100); MEAN CORPUSCULAR HEMOGLOBIN 23.9 pg (25-34); MEAN CORPUSCULAR HGB CONC 33.2 g/dl (32-36); MONO % 11.7 %; PLATELET COUNT 237 K/uL (130-400); RED BLOOD COUNT 4.48 M/uL (4.2-5.4); WHITE BLOOD COUNT 8.35 K/uL (4.8-10.8)
[2017-01-03 07:23] LABS: INR 1.1 (0.9-1.1); PARTIAL THROMBOPLASTIN RATIO 1.1; PROTHROMBIN TIME (PATIENT) 11.5 SECONDS (9.0-12.0)
[2017-01-03 07:47] LABS: BUN/CREATININE RATIO 9.4 (10-20); CALCIUM 8.9 mg/dl (8.5-10.1); CREATININE 0.63 mg/dl (0.60-1.20); MAGNESIUM 2.1 mg/dl (1.8-2.4); POTASSIUM 3.6 mmol/L (3.5-5.1)
[2017-01-03 08:00] VITALS: BP 156/99; PULSE 98; TEMP 36.3; O2SAT 94
[2017-01-03] MEDS: NSS + 20MEQ KCL 1000ML 1,000 ML IV SCH (08:49)
[2017-01-03] MEDS: LEVOFLOXACIN / D5W 750 MG in PREMIXED IN D5W 150 ML IV SCH (08:56)
--- NOTE | 2017-01-03 10:23 | Oncology Consultation ---
Oncology/Heme Consultation Date of Consultation: Jan 03, 2017. Attending Physician: Zunilda Acevedo DO Reason for Consultation: Liver mass Obstructive jaundice History of Present Illness Ms. Vizcarra is a 71 year old Gabonese-speaking woman (her history was taken via her daughter, who speaks Cypriot) with a history of HTN and a bowel resection ~ 20 years ago for some sort of tumor. The exact nature of the mass or the surgery isn't clear. She has noticed worsening RUQ and right back pain over about the last 6 months or so. More recently, she has noticed yellowing of her skin and darkened urine. She presents to the hospital weak, fatigued, and tired. A CT of her abdomen revealed a 7 cm mass in the right liver extending toward the hepatic hilum and involving the ductal system, causing intrahepatic ductal dilatation. Per her daughter, she is not aware of any exposure to viral hepatitides and she has never had a blood transfusion. She is not a drinker and has no known history of liver disease. Past Medical/Surgical History Medical Problems: (1) Hepatic cancer Status: Acute (2) SVT (supraventricular tachycardia) Status: Acute Family History Patient reports no known family medical history. Social History Smoking Status: Never Smoker Smokeless Tobacco Use: No Alcohol Use: none Drug Use: none Marital Status: Occupation Status: retired Allergies Coded Allergies: No Known Allergies (Unverified , 01/02/17) Home Medications No Active Prescriptions or Reported Meds Current Inpatient Medications Current Inpatient Medications Medications (Trade) Dose Ordered Sig/Luis Route Start Time Stop Time Status Last Admin Dose Admin Potassium Chloride/Sodium Chloride (Nss + 20meq KCl 1000ml) 1,000 ml @ 80 mls/hr [id number] IV 01/02/17 20:00 02/01/17 19:59 01/03/17 08:49 80 MLS/HR Lorazepam (Ativan Inj) 0.5 mg Q4H PRN IV 01/02/17 17:45 02/01/17 17:44 Diphenhydramine HCl 25 mg 25 mg Q4H PRN IV 01/02/17 17:45 02/01/17 17:44 Promethazine HCl/ Sodium Chloride (Phenergan Inj/ Nss 50ml) 50.5 ml @ 202 mls/hr Q4H PRN IV 01/02/17 17:45 3/20/17 17:44 Zolpidem Tartrate (Ambien Tab) 5 mg HSZ PRN PO 01/02/17 17:45 02/01/17 17:44 Ondansetron HCl (Zofran Inj) 4 mg Q6H PRN IV 01/02/17 17:45 02/01/17 17:44 Morphine Sulfate (MoRPHine SULFATE INJ) 2 mg Q2H PRN IV 01/02/17 17:45 01/16/17 17:44 Morphine Sulfate 4 mg 4 mg Q2H PRN IV 01/02/17 17:45 01/16/17 17:44 Lorazepam 0.5 mg/ Syringe 1 ml @ 1 mls/min Q4H PRN IV 01/02/17 19:45 02/01/17 19:44 Levofloxacin/Prmx (Levaquin / D5W/ Premixed D5W) 150 ml @ 100 mls/hr DAILY IV 01/03/17 09:00 01/08/17 08:59 01/03/17 08:56 100 MLS/HR Review of Systems Unable to obtain, patient is non-Cypriot speaking Physical Exam Date Time Temp Pulse Resp B/P Pulse Ox O2 Delivery O2 Flow Rate FiO2 01/03/17 08:00 36.3 98 16 156/99 94 Room Air 01/03/17 08:00 Room Air 01/03/17 04:00 Room Air 01/03/17 03:40 36.4 91 18 136/82 94 Room Air 01/02/17 23:59 Room Air 01/02/17 23:45 36.3 87 18 150/90 94 Room Air 01/02/17 20:00 Room Air 01/02/17 18:25 36.8 95 20 153/88 95 Room Air 01/02/17 17:32 99 18 138/102 98 Room Air 01/02/17 16:41 98 18 136/94 96 Room Air 01/02/17 16:37 106 18 136/94 96 Room Air 01/02/17 15:51 101 23 01/02/17 15:50 98 01/02/17 15:46 107 19 117/85 01/02/17 15:43 123/88 01/02/17 15:41 102 22 01/02/17 15:38 115/90 01/02/17 15:36 107 20 01/02/17 15:34 124/81 01/02/17 15:31 114 18 01/02/17 15:30 130/82 01/02/17 15:26 156 18 01/02/17 15:21 157 18 129/94 96 Room Air 163 109/80 172 101/68 01/02/17 15:21 153 21 01/02/17 15:16 158 18 01/02/17 15:11 163 22 101/68 01/02/17 15:10 109/80 01/02/17 15:09 129/94 01/02/17 15:08 162 01/02/17 15:06 159 23 01/02/17 15:01 161 21 01/02/17 14:56 123/75 01/02/17 14:29 37.0 88 20 120/79 99 Room Air General Appearance: no apparent distress, + pertinent finding (Ill-appearing but comfortable) Eyes: EOMI, + abnormal sclerae exam (icteric sclerae) ENT: + pertinent finding (mucous membranes dry) Respiratory/Chest: lungs clear, no respiratory distress Cardiovascular: regular rate, rhythm, no murmur Abdomen/GI: normal bowel sounds, non tender, soft Extremities/Musculoskelatal: no pedal edema, normal range of motion Neurologic/Psych: no motor/sensory deficits, alert Skin: + jaundice Laboratory Results Last 24 Hours Test 01/02/17 14:56 01/02/17 15:05 01/02/17 21:15 01/03/17 06:49 Urine Color ORANGE Urine Appearance TURBID Urine pH 5.5 Urine Specific [place] 1.020 Urine Protein 2+ Urine Glucose (UA) TRACE Urine Ketones NEG Urine Occult Blood NEG Urine Nitrite POS Urine Bilirubin 3+ Urine Urobilinogen NEG Urine Leukocyte Esterase MODERATE Urine WBC (Auto) 10-30 /hpf Urine RBC (Auto) 5-10 /hpf Urine Hyaline Casts (Auto) 0 /lpf Urine Epithelial Cells (Auto) >30 /lpf Urine Bacteria (Auto) 3+ Urine Crystals URIC ACID Urine Pathogenic Casts /lpf White Blood Count 10.66 K/uL 8.35 K/uL Red Blood Count 4.92 M/uL 4.48 M/uL Hemoglobin 11.9 g/dL 10.7 g/dL Hematocrit 35.2 % 32.2 % Mean Corpuscular Volume 71.5 fL 71.9 fL Mean Corpuscular Hemoglobin 24.2 pg 23.9 pg Mean Corpuscular Hemoglobin Concent 33.8 g/dl 33.2 g/dl Platelet Count 267 K/uL 237 K/uL Mean Platelet Volume 10.0 fL 10.0 fL Neutrophils (%) (Auto) 79.5 % 77.0 % Lymphocytes (%) (Auto) 7.5 % 9.8 % Monocytes (%) (Auto) 11.4 % 11.7 % Eosinophils (%) (Auto) 1.1 % 1.2 % Basophils (%) (Auto) 0.3 % 0.2 % Neutrophils # (Auto) 8.48 K/uL 6.42 K/uL Lymphocytes # (Auto) 0.80 K/uL 0.82 K/uL Monocytes # (Auto) 1.21 K/uL 0.98 K/uL Eosinophils # (Auto) 0.12 K/uL 0.10 K/uL Basophils # (Auto) 0.03 K/uL 0.02 K/uL RDW Standard Deviation 44.4 fL 45.6 fL RDW Coefficient of Variation 17.2 % 17.6 % Immature Granulocyte % (Auto) 0.2 % 0.1 % Immature Granulocyte # (Auto) 0.02 K/uL 0.01 K/uL Prothrombin Time 11.3 SECONDS 11.5 SECONDS Prothromb Time International Ratio 1.1 1.1 Sodium Level 138 mmol/L 140 mmol/L Potassium Level 3.2 mmol/L 3.6 mmol/L Chloride Level 103 mmol/L 109 mmol/L Carbon Dioxide Level 20 mmol/L 19 mmol/L Anion Gap 15.0 mmol/L 12.0 mmol/L Blood Urea Nitrogen 7 mg/dl 6 mg/dl Creatinine 0.85 mg/dl 0.63 mg/dl Est Creatinine Clear Calc Drug Dose 64.7 ml/min 87.5 ml/min Estimated GFR () 80.5 105.3 Estimated GFR (Non- 69.4 90.9 BUN/Creatinine Ratio 7.8 9.4 Random Glucose 165 mg/dl 105 mg/dl Calcium Level 9.0 mg/dl 8.9 mg/dl Magnesium Level 2.0 mg/dl 2.1 mg/dl Total Bilirubin 4.0 mg/dl 4.6 mg/dl Direct Bilirubin 3.4 mg/dl 3.7 mg/dl Aspartate Amino Transf (AST/SGOT) 234 U/L 212 U/L Alanine Aminotransferase (ALT/SGPT) 210 U/L 183 U/L Alkaline Phosphatase 683 U/L 613 U/L Total Protein 8.3 gm/dl 7.6 gm/dl Albumin 3.0 gm/dl 2.7 gm/dl Lipase 188 U/L Thyroid Stimulating Hormone (TSH) 0.409 uIu/ml Activated Partial Thromboplast Time 27.4 SECONDS Partial Thromboplastin Ratio 1.1 Assessment & Plan I reviewed her scans and her situation with Dr. Frederick, from GI. She has a large intrahepatic mass that is growing in toward her hepatic hilum and appears to involve her biliary tree. There is associated intrahepatic ductal dilatation that is the source of her jaundice. Given how high the mass sits in the liver, Dr. Frederick was concerned that he may not have a stent long enough to traverse the obstruction. In addition, there is some uncertainty about the surgery she had 20 years ago and how it may impact an ERCP/EUS. If he is unable to perform the procedure safely, or if the lesion is not amenable to stenting, I would favor transfer to [place] for IR-guided percutaneous biliary drain and biopsy. This appears to be a primary hepatic tumor, such as an HCC or cholangiocarcinoma , but could have spread from an occult primary or, though much less likely, be a recurrence of whatever disease she had 20 years ago. Once we have a tissue diagnosis, we can discuss with the patient and her family a strategy for managing her cancer. In the meantime, I would obtain CT imaging of her chest to rule out pulmonary metastases/primary tumors. She is also going for MRCP today.
[2017-01-03 11:34] VITALS: BP 163/110; PULSE 95; TEMP 36.6; O2SAT 95
--- NOTE | 2017-01-03 11:40 | DIAGNOSTIC IMAGING REPORT ---
MRCP CLINICAL HISTORY: LIVER CANCER ON CT abnormal CT and ultrasound TECHNIQUE: Multi axial MRI acquisition COMPARISON STUDY: CT dated 12/31/2016. Ultrasound dated 12/23/2016. FINDINGS: Limited study technically as the patient could not tolerate the exam. The study does not contribute significantly compared to the patient's prior CT study. There is a large partially necrotic mass of the right hepatic lobe is measures approximate 7.1 cm in maximum dimension. Peripheral to the mass are distention of the biliary ductal system suggesting either extrinsic or potentially intrinsic/invasive components causing obstructive change. The distal aspect of the common duct demonstrates a curvilinear defect. This may be secondary to surrounding adenopathy versus an adherent common duct lesion. Incomplete filling of the bifurcation of the common duct is also most likely secondary to local invasion and/or extrinsic impact on the patient's right hepatic lobe mass. There is suggestion of a mass versus necrotic adenopathy medial to the right hepatic hilum. It is not clear whether this is inherent to the biliary ductal system, pancreas, or liver. It measures 3.5 cm. Gallstones are present within the gallbladder lumen. There is slight degree of gallbladder wall edematous change. Bowel pattern of the upper abdomen is nonobstructive. Spleen is uniform. Kidneys negative for hydronephrosis. There are several small renal cortical cysts. IMPRESSION: 1. Very limited exam as the patient could not tolerate the study. 2. Large centrally necrotic mass of the right hepatic lobe demonstrating potential invasion and or obstructive change of the peripheral biliary ductal system 3. Potential secondary mass/adenopathy surrounding or adjacent to the distal common bile duct. This appears to be creating. Distention of the proximal biliary ductal system . This measures 3.5 cm maximum dimension. 4. Although limited, the study suggests two Independent lesions, both of which demonstrate obstructive change to the central and peripheral pillar ductal systems. 5. gallstones with probable underlying components of cholecystitis 6. Studies consistent with that of a neoplastic process Electronically signed by: Terry Devries M.D. 01/03/2017 11:39 AM Dictated Date/Time: 01/03/2017 11:26 AM
[2017-01-03 12:27] VITALS: BP 153/97
[2017-01-03] MEDS ORDERED: ONDANSETRON INJ 2 MG/ML 2 ML VIAL ONE (12:46)
[2017-01-03] MEDS ORDERED: PROPOFOL IV EMULSION 10 MG/ML 20 ML VIAL IV ONE (12:46)
[2017-01-03] MEDS ORDERED: NEOSTIGMINE METHYLSULFATE 5 MG/5 ML SYR ONE (12:46)
[2017-01-03] MEDS ORDERED: GLYCOPYRROLATE INJ 0.2 MG/ML VIAL ONE (12:46)
[2017-01-03] MEDS ORDERED: FENTANYL CITRATE INJ 50 MCG/1 ML 2 ML VIAL ONE (12:46)
[2017-01-03] MEDS ORDERED: DEXAMETHASONE SOD INJ 4 MG/ML VIAL ONE (12:46)
[2017-01-03] MEDS ORDERED: ROCURONIUM BROMIDE 10 MG/ML 5 ML VIAL ONE (12:46)
[2017-01-03] MEDS ORDERED: MIDAZOLAM HCL 1 MG/ML 2ML VIAL ONE (12:46)
[2017-01-03] MEDS ORDERED: LIDOCAINE HCL 2% 2 ML VIAL (20MG/ML) ONE (12:46)
--- NOTE | 2017-01-03 12:58 | Progress Note ---
Subjective Date of Service: Jan 03, 2017. Subjective Pt evaluation today including: conversation w/ patient, conversation w/ family , conversation w/ email production consultant Pt still with jaundice. Palpitations have resolved. Still feels weak. Has no hx of abd pain, n/v with this jaundice. 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 Pt denies fever, SOB, chest pain, c/d, LE pain or swelling. ROS as noted above, otherwise neg. Problem List Medical Problems: (1) Hepatic cancer Status: Acute (2) SVT (supraventricular tachycardia) Status: Acute Objective Vital Signs Date Time Temp Pulse Resp B/P Pulse Ox O2 Delivery O2 Flow Rate FiO2 01/03/17 12:27 153/97 01/03/17 12:00 Room Air 01/03/17 11:34 36.6 95 20 163/110 95 Room Air 01/03/17 08:00 36.3 98 16 156/99 94 Room Air 01/03/17 08:00 Room Air 01/03/17 04:00 Room Air 01/03/17 03:40 36.4 91 18 136/82 94 Room Air 01/02/17 23:59 Room Air 01/02/17 23:45 36.3 87 18 150/90 94 Room Air 01/02/17 20:00 Room Air 01/02/17 18:25 36.8 95 20 153/88 95 Room Air 01/02/17 17:32 99 18 138/102 98 Room Air 01/02/17 16:41 98 18 136/94 96 Room Air 01/02/17 16:37 106 18 136/94 96 Room Air 01/02/17 15:51 101 23 01/02/17 15:50 98 01/02/17 15:46 107 19 117/85 01/02/17 15:43 123/88 01/02/17 15:41 102 22 01/02/17 15:38 115/90 01/02/17 15:36 107 20 01/02/17 15:34 124/81 01/02/17 15:31 114 18 01/02/17 15:30 130/82 01/02/17 15:26 156 18 01/02/17 15:21 157 18 129/94 96 Room Air 163 109/80 172 101/68 01/02/17 15:21 153 21 01/02/17 15:16 158 18 01/02/17 15:11 163 22 101/68 01/02/17 15:10 109/80 01/02/17 15:09 129/94 01/02/17 15:08 162 01/02/17 15:06 159 23 01/02/17 15:01 161 21 01/02/17 14:56 123/75 01/02/17 14:29 37.0 88 20 120/79 99 Room Air Physical Exam General Appearance: WD/WN, no apparent distress Respiratory/Chest: normal breath sounds, no respiratory distress Cardiovascular: regular rate, rhythm, no edema Abdomen: non tender, soft Extremities: non-tender, no pedal edema Neurologic/Psychiatric: alert, normal mood/affect Skin: warm/dry, + jaundice (facial) Laboratory Results Last 24 Hours Test 01/02/17 14:56 01/02/17 15:05 01/02/17 21:15 01/03/17 06:49 Urine Color ORANGE Urine Appearance TURBID Urine pH 5.5 Urine Specific [place] 1.020 Urine Protein 2+ Urine Glucose (UA) TRACE Urine Ketones NEG Urine Occult Blood NEG Urine Nitrite POS Urine Bilirubin 3+ Urine Urobilinogen NEG Urine Leukocyte Esterase MODERATE Urine WBC (Auto) 10-30 /hpf Urine RBC (Auto) 5-10 /hpf Urine Hyaline Casts (Auto) 0 /lpf Urine Epithelial Cells (Auto) >30 /lpf Urine Bacteria (Auto) 3+ Urine Crystals URIC ACID Urine Pathogenic Casts /lpf White Blood Count 10.66 K/uL 8.35 K/uL Red Blood Count 4.92 M/uL 4.48 M/uL Hemoglobin 11.9 g/dL 10.7 g/dL Hematocrit 35.2 % 32.2 % Mean Corpuscular Volume 71.5 fL 71.9 fL Mean Corpuscular Hemoglobin 24.2 pg 23.9 pg Mean Corpuscular Hemoglobin Concent 33.8 g/dl 33.2 g/dl Platelet Count 267 K/uL 237 K/uL Mean Platelet Volume 10.0 fL 10.0 fL Neutrophils (%) (Auto) 79.5 % 77.0 % Lymphocytes (%) (Auto) 7.5 % 9.8 % Monocytes (%) (Auto) 11.4 % 11.7 % Eosinophils (%) (Auto) 1.1 % 1.2 % Basophils (%) (Auto) 0.3 % 0.2 % Neutrophils # (Auto) 8.48 K/uL 6.42 K/uL Lymphocytes # (Auto) 0.80 K/uL 0.82 K/uL Monocytes # (Auto) 1.21 K/uL 0.98 K/uL Eosinophils # (Auto) 0.12 K/uL 0.10 K/uL Basophils # (Auto) 0.03 K/uL 0.02 K/uL RDW Standard Deviation 44.4 fL 45.6 fL RDW Coefficient of Variation 17.2 % 17.6 % Immature Granulocyte % (Auto) 0.2 % 0.1 % Immature Granulocyte # (Auto) 0.02 K/uL 0.01 K/uL Prothrombin Time 11.3 SECONDS 11.5 SECONDS Prothromb Time International Ratio 1.1 1.1 Sodium Level 138 mmol/L 140 mmol/L Potassium Level 3.2 mmol/L 3.6 mmol/L Chloride Level 103 mmol/L 109 mmol/L Carbon Dioxide Level 20 mmol/L 19 mmol/L Anion Gap 15.0 mmol/L 12.0 mmol/L Blood Urea Nitrogen 7 mg/dl 6 mg/dl Creatinine 0.85 mg/dl 0.63 mg/dl Est Creatinine Clear Calc Drug Dose 64.7 ml/min 87.5 ml/min Estimated GFR () 80.5 105.3 Estimated GFR (Non- 69.4 90.9 BUN/Creatinine Ratio 7.8 9.4 Random Glucose 165 mg/dl 105 mg/dl Calcium Level 9.0 mg/dl 8.9 mg/dl Magnesium Level 2.0 mg/dl 2.1 mg/dl Total Bilirubin 4.0 mg/dl 4.6 mg/dl Direct Bilirubin 3.4 mg/dl 3.7 mg/dl Aspartate Amino Transf (AST/SGOT) 234 U/L 212 U/L Alanine Aminotransferase (ALT/SGPT) 210 U/L 183 U/L Alkaline Phosphatase 683 U/L 613 U/L Total Protein 8.3 gm/dl 7.6 gm/dl Albumin 3.0 gm/dl 2.7 gm/dl Lipase 188 U/L Thyroid Stimulating Hormone (TSH) 0.409 uIu/ml Activated Partial Thromboplast Time 27.4 SECONDS Partial Thromboplastin Ratio 1.1 Assessment and Plan SVT, converted to sinus tachycardia after administration of adenosine 6 mg IV ECHO pending Cards c/s pending HypoK: Likely causing SVT Replaced and monitor Liver cancer/most likely primary tumor such as cholangiocarcinoma with shandra metastasis noted on CT of December 31 MRCP noted Spoke with GI, planning ERCP and EUS later this afternoon. Pt has hx of bowel surgery 20 years ago, but is unable to explain further. Dr. Frederick is uncertain if he will be able to do much depending on the location and extent of prior surgery. Pt may need transferred to tertiary care if this is the case Oncology is following also, pt will need CT chest once stable from other procedures Abn UA: Concern for UTI, cx pending Levaquin started 01/03 Hyperglycemia--place on Accu-Cheks before meals and at bedtime with NovoLog coverage. Check a hemoglobin A1c.
[2017-01-03] MEDS ORDERED: CIPROFLOXACIN / D5W 400 MG in PREMIXED IN D5W 200 ML IV ONE (14:00)
--- NOTE | 2017-01-03 14:07 | History & Physical Bridge Note ---
H&P Re-Evaluation Bridge Note: I have examined the patient, reviewed the History & Physical and in the interval since the performance of the History & Physical I have noted the following changes of clinical significance: No changes noted AAO x3 Nl s1s2 Lungs CTA Abd soft NT/ND + BS intact incisional scar midline - CCE rectal deferred For EUS/ERCP Prop Cipro 400mg IV ordered
[2017-01-03] MEDS ORDERED: ATROPINE SULFATE 0.1 MG/ML 5ML SYR IV PRN (17:30)
[2017-01-03] MEDS ORDERED: EpHEDrine SULFATE INJ 50 MG/ML AMP IV PRN (17:30)
[2017-01-03] MEDS ORDERED: FENTANYL CITRATE INJ 50 MCG/1 ML 2 ML VIAL IV PRN (17:30)
[2017-01-03] MEDS ORDERED: ONDANSETRON INJ 2 MG/ML 2 ML VIAL IV PRN (17:30)
[2017-01-03] MEDS ORDERED: MEPERIDINE HCL 25 MG/ML CARP IV PRN (17:30)
[2017-01-03] MEDS ORDERED: LABETALOL HCL IV 5 MG/ML 20ML IV PRN (17:30)
[2017-01-03] MEDS ORDERED: HYDROmorphone INJ 1 MG/ML SYR IV PRN (17:30)
--- NOTE | 2017-01-03 17:39 | DIAGNOSTIC IMAGING REPORT ---
ERCP BILIARY DUCTAL CLINICAL HISTORY: ERCP COMPARISON STUDY: CT 12/31/2016. MRCP 01/03/2017 FLUOROSCOPY TIME: 11 minutes 42 seconds. FINDINGS: Retrograde opacification of the common duct versus a stenotic lesion at the level of the proximal duct. This is traversed with a wire was followed by successful stent placement. Fibrillation of the intrahepatic ducts is suboptimal. IMPRESSION: Successful common bile duct stent placement. Stenotic lesion of the proximal common duct. Electronically signed by: Terry Devries M.D. 01/03/2017 5:38 PM Dictated Date/Time: 01/03/2017 5:36 PM
--- NOTE | 2017-01-03 17:55 | GI REPORT ---
Procedure Date: 01/03/2017 4:01 PM Procedure: ERCP Indications: Jaundice Medicines: General Anesthesia Complications: No immediate complications. Estimated blood loss: None Estimated Blood Loss: Estimated blood loss: none. Procedure: Pre-Anesthesia Assessment: - Prior to the procedure, a History and Physical was performed, and patient medications and allergies were reviewed. The patient's tolerance of previous anesthesia was also reviewed. The risks and benefits of the procedure and the sedation options and risks were discussed with the patient. All questions were answered, and informed consent was obtained. Prior Anticoagulants: The patient has taken no previous anticoagulant or antiplatelet agents. ASA Grade Assessment: II - A patient with mild systemic disease. After reviewing the risks and benefits, the patient was deemed in satisfactory condition to undergo the procedure. After obtaining informed consent, the scope was passed under direct vision. Throughout the procedure, the patient's blood pressure, pulse, and oxygen saturations were monitored continuously. The Scope was introduced through the mouth, and advanced to the duodenum and used to inject contrast into the bile duct. The ERCP was accomplished without difficulty. The patient tolerated the procedure well. Findings: The investment broker film was normal. The esophagus was successfully intubated under direct vision. The scope was advanced to a normal major papilla in the descending duodenum without detailed examination of the pharynx, larynx and associated structures, and upper GI tract. The upper GI tract was grossly normal. A straight 0.035 inch Tracer [employer] Direct wire was passed into the biliary tree on the first attempt. The short-nosed traction sphincterotome was passed over the guidewire and the bile duct was then deeply cannulated. Contrast was injected. I personally interpreted the bile duct images. Ductal flow of contrast was adequate. Image quality was adequate. Contrast extended to the entire biliary tree. Opacification of the entire biliary tree was successful. The maximum diameter of the ducts was 10 mm. The common hepatic duct/confluence contained a single moderate stenosis 20 mm in length. A 4 mm biliary sphincterotomy was made with a short-tip traction sphincterotome using ERBE electrocautery. There was no post-sphincterotomy bleeding. Cells for cytology were obtained by brushing. One 7 Fr by 12 cm temporary plastic biliary stent with a single external flap and a single internal flap was placed 12 cm into the common bile duct and across the the stricture toward the rt ductal system over a wire.. Bile flowed through the stent. The stent was in good position. One 7 Fr by 15 cm temporary stent with a single external flap and a single internal flap was placed 15 cm into the common bile duct into the left main and across the stricture over a wire.. Bile flowed through the stent. The stent was in good position. Impression: - A moderate biliary stricture was found. The stricture was malignant appearing. - A sphincterotomy was performed. - One temporary plastic biliary stent was placed into the common bile duct see above - One temporary stent was placed into the common bile duct-see above. - The PD was neither instrumented nor opacified. Recommendation: - [facility]. - Advance diet as tolerated. - Check alpha-fetoprotein today. - Repeat ERCP in 6 weeks to exchange stent. - Await cytology results. - Depending on cytology results and EUS FNA, may need additional sampling either by repeat EUS vs IR percutaneously. MD Ramírez Markham MD 01/03/2017 5:55:25 PM This report has been signed electronically. Note Initiated On: 01/03/2017 4:01 PM I attest to the content of the Intraoperative Record and orders documented therein, exceptions below
[2017-01-03 18:23] VITALS: BP 135/86; PULSE 96; TEMP 36.9; O2SAT 95
--- NOTE | 2017-01-03 19:34 | Anesthesiology Progress Note ---
Anesthesia Post Op Note Date & Time Jan 03, 2017 at 19:33 Vital Signs Pain Intensity: 0 Vital Signs Past 12 Hours Date Time Temp Pulse Resp B/P Pulse Ox O2 Delivery O2 Flow Rate FiO2 01/03/17 18:26 Room Air 01/03/17 18:23 36.9 96 20 135/86 95 Nasal Cannula 3.0 01/03/17 17:55 36.9 88 16 137/85 94 Nasal Cannula 3 01/03/17 17:45 87 16 137/85 92 Room Air 01/03/17 17:35 85 16 136/82 99 Mask 10 01/03/17 17:25 86 16 138/78 96 Mask 10 01/03/17 17:19 36.9 87 16 137/81 95 Mask 10 01/03/17 12:27 153/97 01/03/17 12:00 Room Air 01/03/17 11:34 36.6 95 20 163/110 95 Room Air 01/03/17 08:00 36.3 98 16 156/99 94 Room Air 01/03/17 08:00 Room Air Notes Mental Status: alert / awake / arousable, participated in evaluation Pt Amnestic to Procedure: Yes Nausea / Vomiting: adequately controlled Pain: adequately controlled Airway Patency, RR, SpO2: stable & adequate BP & HR: stable & adequate Hydration State: stable & adequate Anesthetic Complications: no major complications apparent
[2017-01-03 19:39] VITALS: BP 135/88; PULSE 91; TEMP 36.4; O2SAT 95
[2017-01-03 21:25] LABS: HEPATITIS B AB NEG
--- NOTE | 2017-01-03 21:57 | GASTROINTESTINAL CONSULTATION ---
DATE OF CONSULTATION: 01/03/2017 REASON FOR CONSULT: Liver mass found on ultrasound CT scan with right-sided abdominal pain and abnormal liver test. 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 The patient presented to the Emergency Room yesterday evening for onset of palpitations, fatigue and skin pallor a few days prior to arrival. The patient reported that she experienced right-sided abdominal pain mostly in the right upper quadrant and somewhat in the right back over the last couple of days. The patient describes that since she has been somewhat symptomatic with increased fatigue over the last few months, at least since the fall of 2015. The patient did notice that her urine was getting darker, although she denies any pruritus and did not notice that her stools changed in color. She denies any fevers or shaking chills. The patient denies any prior history of known liver disorders by way of hepatitis, history of blood transfusions, excess alcohol usage, and is unaware of any chronic familial liver diseases or viral hepatitis exposure. PAST MEDICAL HISTORY: Includes only hypertension. SOCIAL HISTORY: The patient denies tobacco or alcohol use. Is . Lives with her family and is retired. ALLERGIES: She has no known drug allergies. MEDICATIONS: She has no active home medications, though she does have a history of hypertension, which when medications were tried these would tend to lower her blood pressure significantly and she would discontinue on her own. REVIEW OF SYSTEMS: Otherwise noncontributory based on 14-point exam. The patient denies any nausea, vomiting, chest pain, hematemesis, coffee-ground emesis, melena or bright red blood per rectum. She denies dysuria or hematuria. There is no rash described or no changes in hair. She has no focal neurologic complaints or changes in mentation. Her appetite is perhaps slightly diminished and there has been weight loss of unclear amount. 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 The details of this are unclear and occurred 20 years ago in [place] for which records are not available. As we continued there was a description that the patient had some type of a stomal appliance and later when the patient's son-in-law joined us he believes this may have been a colostomy with a part of the colon resected. Although it was described as a tumor of some type, the patient did not require chemotherapy or radiation. The patient's review of systems is otherwise noncontributory. There is no family history of colorectal cancer or other gastrointestinal liver disorders. PHYSICAL EXAMINATION: VITAL SIGNS: On admission, the patient was afebrile at 37.0, 120/79, room air is 99%, heart rate 88, and respirations 20. GENERAL: The patient is awake, alert and oriented x3. HEENT: Oral mucosa is moist. NECK: There is no cervical or supraclavicular adenopathy. I do not appreciate thyromegaly. LABORATORY STUDIES: On admission show an alkaline phosphatase of 683, ALT 210, AST 234, total bilirubin 4.0, lipase 188, TSH is 0.4. Urinalysis is positive for nitrites, moderate for leukocyte esterase positivity. Her white count is 10.66, H\\T\\H 11.9, MCV is low at 71.5. BUN and creatinine are 7 and 0.85, potassium is slightly low at 3.2. The patient had ultrasound earlier in the last several days that showed a complex heterogeneous mass in the right lobe of the liver and possibly a small hypodense lesion in the head of the pancreas. CT scan identified a 7 x 6 x 5 heterogeneous mass in the right lobe of the liver which extends to the hepatic hilum and likely invades the common hepatic duct which is also filled with soft tissue attenuation with wall thickening and enhancement. There is also stranding at the hepatic hilum with moderate intrahepatic biliary ductal dilation. The patient has patent portal vessels. The gallbladder shows cholelithiasis without distention, spleen is normal size, pancreas is moderate gland activity with a normal PD diameter. There is evidence of lymphadenopathy that is necrotic in the cyndy hepatis cyndy cava region that is 3.7 x 4.1. There is also a 1.4 cm gastrohepatic node and lymph nodes at the GE junction that measure up to 1.5 cm. There are no blastic or lytic lesions in the bone studies. An MRI performed a short time ago revealed a large and central necrotic mass in the right hepatic lobe with potential invasion into the peripheral biliary system. There is potentially a second mass or adenopathy surrounding the distal common bile duct region that appears to create distention of the proximal biliary system. This is aggregate size of 3.5 cm. This suggests 2 sources of biliary obstruction for both central and peripheral pattern. There is also gallstones. IMPRESSION AND PLAN: 71-year-old [place] female who developed right-sided abdominal pain, abnormal liver tests with increasing fatigue and weight loss of uncertain amount. There is also a remote history of some colon resection that led to a presumed colostomy about 20 years ago in [place], though the details of the type of surgery and pathology are not known. There is also a microcytic anemia with this, although, there is no history of hepatitis of any type or blood transfusions. I made the following recommendations. I spoke with the patient, her daughter, her son-in-law as well as oncology earlier today and throughout the morning and early afternoon. This certainly is concerning for a primary hepatocellular lesion that may reflect cholangiocarcinoma as there appears to be a single large lesion in the liver and not multiple lesions that would suggest a metastatic process. Nevertheless there is this remote history of some part of the intestinal tract being resected, presumably the colon of unclear need. The family clearly reports that it was a tumor, but to their recollection she never received chemotherapy or radiation. We did discuss the options with the family including referral to a tertiary center for diagnosis and treatment. However, we can also provide endoscopic attempt for biliary decompression, biliary duct sampling as well as US F\\T\\A of lesions in the biliary tree adenopathy and the liver lesion if accessible. There is a large hiatal hernia present; however, there was no apparent resection of the proximal foregut during this surgery as described by CT scan. If this is not accessible or biliary drainage cannot be achieved, then referral down to [facility] for IR would be prudent; however, the family would like to approach this locally at least initially and permission was obtained to perform US and ERCP through [place] production line operator. Further recommendations to follow. In addition, she may ultimately require colonoscopy at some point given the microcytic anemia and although, with such a sizable hiatal hernia this may also reflect Mariano erosions or upper sources. I would obtain viral markers and other metabolic chronic liver markers including chronic Hepatitis B and C markers, AMA, FEDE, serum protein electrophoresis. Thank you for allowing me to participate in the care of this pleasant lady. MARCIN
[2017-01-04] VITALS (9 sets, daily range): BP systolic 110–166; BP diastolic 72–100; PULSE 62–142; TEMP 36.3–36.6; O2SAT 93–96
[2017-01-04] MEDS: ZOLPIDEM TARTRATE 5 MG TAB PO PRN ×2 (03:06→22:46)
[2017-01-04 07:41] LABS: ESTIMATED AVERAGE GLUCOSE 126 mg/dl; HA1C FLAG Normal (Normal)
[2017-01-04 08:11] LABS: BASO % 0.1 %; BASO ABS # 0.01 K/uL (0-0.2); EOS % 0.1 %; HEMATOCRIT 33.1 % (37-47); IG% 0.2 %; LYMPH ABS # 0.69 K/uL (1.2-3.4); MEAN CELL VOLUME 72.9 fL (80-100); MEAN PLATELET VOLUME 10.4 fL (7.4-10.4); MONO % 9.1 %; NEUT % 82.5 %; PLATELET COUNT 242 K/uL (130-400); RED BLOOD COUNT 4.54 M/uL (4.2-5.4); WHITE BLOOD COUNT 8.67 K/uL (4.8-10.8)
[2017-01-04 08:12] LABS: COMPLETE YES; MEAN CORPUSCULAR HGB CONC 32.9 g/dl (32-36)
[2017-01-04 08:27] LABS: BUN/CREATININE RATIO 13.9 (10-20); CALCIUM 9.3 mg/dl (8.5-10.1); CREATININE 0.66 mg/dl (0.60-1.20); MAGNESIUM 2.2 mg/dl (1.8-2.4)
[2017-01-04] MEDS: NSS + 20MEQ KCL 1000ML 1,000 ML IV SCH (08:46)
[2017-01-04] MEDS: LEVOFLOXACIN / D5W 750 MG in PREMIXED IN D5W 150 ML IV SCH (08:46)
--- NOTE | 2017-01-04 11:55 | HEME/ONC PROGRESS NOTE ---
DATE: 01/04/2017 DIAGNOSES: 1. Liver mass. 2. Obstructive jaundice. 3. Status post ERCP with stenting. HOSPITAL COURSE: Ms. Vizcarra is a 71-year-old [place] female who was admitted to [facility] on January 02 with generalized weakness, fatigue and painless jaundice. Dr. Frederick performed ERCP with stenting and subsequent brushing. Pathology is pending. The patient feels well and most of today's information gathered from the patient's daughter because Lor herself does not speak Ukrainian. Nursing reports no overnight difficulties. PHYSICAL EXAMINATION: VITAL SIGNS: Temperature 36.3, pulse 79, respirations 20, blood pressure 153/90. GENERAL: The patient again is in no distress. SKIN: Without rash or lesion. HEENT: Oral mucosa without erythema or ulceration. NECK: Supple. HEART: Regular rate and rhythm. No clicks, rubs, murmurs or gallops. LUNGS: Clear to auscultation bilaterally. ABDOMEN: Soft, nontender, nondistended. Bowel sounds are active. EXTREMITIES: No clubbing, cyanosis or edema. NEUROLOGIC: Grossly intact. LABORATORY DATA: WBC count 8670, hemoglobin 10.9, platelet count 242,000. Sodium 143, potassium 4.0, chloride 111, carbon dioxide 21, creatinine 0.66, BUN 9. RADIOGRAPHIC DATA: MRCP performed January 03 reveals a large centrally necrotic mass of the right hepatic lobe with potential invasion into the peripheral biliary ductal system. Potential secondary mass, adenopathy ____ adjacent to the distal common bile duct. IMPRESSION: 1. Liver mass. 2. Obstructive jaundice. 3. Microcytic anemia. PLAN: Dr. Frederick was successful in completing ERCP and stenting. The patient has voiced no issues this morning. Await final pathology to determine an appropriate therapeutic course. Diagnostic possibilities include hepatocellular carcinoma versus cholangiocarcinoma. Will continue to follow periodically during her hospital stay and engage in further discussion once a path is confirmed. Agree with current medical management otherwise. Thank you for allowing us to participate in the care of this very pleasant patient.
[2017-01-04] MEDS ORDERED: OPTIRAY 320 IV PRN (12:00)
--- NOTE | 2017-01-04 12:24 | Hospitalist Progress Note ---
Hospitalist Progress Note Date of Service Jan 04, 2017. (Tereza Baker ., PA-C) Subjective Pt evaluation today including: conversation w/ patient, conversation w/ family (pt does not speak Estonian, daughter at bedside to translate), physical exam, chart review, lab review, review of studies, conversation w/ senior telecommunications consultant (spoke with Dr. Graves), review of inpatient medication list Pain: None PO Intake: Tolerating PO diet, appetite improved Voiding: no voiding problems Patient does not speak Estonian, daughter at bedside to translate. Limited ROS obtained from patient. Per daughter, patient is feeling much better and was able to sleep better than she had prior to arrival. Her appetite has also improved, and she was able to eat all of her breakfast. The patient denies fevers, chest pain, cough, shortness of breath, nausea, vomiting, abdominal pain , urinary retention, numbness and tingling. Additional Comments: See HPI for pertinent positives and negatives. All other systems reviewed and negative. (Tereza Baker ., PA-C) Objective Vital Signs Date Time Temp Pulse Resp B/P Pulse Ox O2 Delivery O2 Flow Rate FiO2 01/04/17 11:49 36.3 85 20 95 3.0 01/04/17 11:12 36.3 85 20 166/85 95 Room Air 01/04/17 08:00 Room Air 01/04/17 07:32 36.3 79 20 153/90 93 Room Air 01/04/17 04:00 36.6 62 18 134/82 95 Room Air 01/04/17 04:00 Room Air 01/04/17 00:01 36.5 78 20 128/74 95 Room Air 01/04/17 00:00 Room Air 01/03/17 20:00 Room Air 01/03/17 19:39 36.4 91 18 135/88 95 Room Air 01/03/17 18:26 Room Air 01/03/17 18:23 36.9 96 20 135/86 95 Nasal Cannula 3.0 01/03/17 17:55 36.9 88 16 137/85 94 Nasal Cannula 3 01/03/17 17:45 87 16 137/85 92 Room Air 01/03/17 17:35 85 16 136/82 99 Mask 10 01/03/17 17:25 86 16 138/78 96 Mask 10 01/03/17 17:19 36.9 87 16 137/81 95 Mask 10 01/03/17 12:27 153/97 01/03/17 12:00 Room Air (Tereza Baker, GONZÁLEZ-C) Physical Exam General Appearance: WD/WN, no apparent distress, + obese Eyes: normal inspection, PERRL, EOMI ENT: normal ENT inspection, hearing grossly normal, pharynx normal Neck: supple, no JVD, trachea midline Respiratory/Chest: lungs clear, normal breath sounds, no respiratory distress Cardiovascular: regular rate, rhythm, no edema, no murmur Abdomen: normal bowel sounds, non tender, soft Extremities: non-tender, normal inspection, no pedal edema Neurologic/Psychiatric: alert, normal mood/affect, oriented x 3 Skin: normal color, warm/dry, no rash (Tereza Baker, GONZÁLEZ-C) Laboratory Results Last 24 Hours Test 01/03/17 17:35 01/03/17 20:29 01/04/17 07:20 01/04/17 08:02 Bedside Glucose 122 mg/dl Ferritin 147.2 ng/ml Hepatitis B Surface Antigen NEG Hepatitis B Surface Antibody NEG Hepatitis C Antibody NEG Sodium Level 143 mmol/L Potassium Level 4.0 mmol/L Chloride Level 111 mmol/L Carbon Dioxide Level 21 mmol/L Anion Gap 11.0 mmol/L Blood Urea Nitrogen 9 mg/dl Creatinine 0.66 mg/dl Est Creatinine Clear Calc Drug Dose 88.4 ml/min Estimated GFR () 103.7 Estimated GFR (Non- 89.5 BUN/Creatinine Ratio 13.9 Random Glucose 105 mg/dl Calcium Level 9.3 mg/dl Magnesium Level 2.2 mg/dl Total Bilirubin 2.4 mg/dl Direct Bilirubin 1.6 mg/dl Aspartate Amino Transf (AST/SGOT) 136 U/L Alanine Aminotransferase (ALT/SGPT) 153 U/L Alkaline Phosphatase 554 U/L Total Protein 7.5 gm/dl Albumin 2.7 gm/dl White Blood Count 8.67 K/uL Red Blood Count 4.54 M/uL Hemoglobin 10.9 g/dL Hematocrit 33.1 % Mean Corpuscular Volume 72.9 fL Mean Corpuscular Hemoglobin 24.0 pg Mean Corpuscular Hemoglobin Concent 32.9 g/dl Platelet Count 242 K/uL Mean Platelet Volume 10.4 fL Neutrophils (%) (Auto) 82.5 % Lymphocytes (%) (Auto) 8.0 % Monocytes (%) (Auto) 9.1 % Eosinophils (%) (Auto) 0.1 % Basophils (%) (Auto) 0.1 % Neutrophils # (Auto) 7.15 K/uL Lymphocytes # (Auto) 0.69 K/uL Monocytes # (Auto) 0.79 K/uL Eosinophils # (Auto) 0.01 K/uL Basophils # (Auto) 0.01 K/uL RDW Standard Deviation 47.6 fL RDW Coefficient of Variation 18.0 % Immature Granulocyte % (Auto) 0.2 % Immature Granulocyte # (Auto) 0.02 K/uL (Tereza Baker ., SOLOMON) Diagnostic Results Reviewed EKG and agree with interpretation as follows: 67 bpm, NSR (Tereza Baker ., SOLOMON) Assessment and Plan 71 y/o female with a history of HTN presented to the ED with palpitations, weakness, fatigue, and skin pallor. Recent CT of abdomen pelvis (12/31) shows large 7.5 cm heterogeneous mass lesion in right lobe of liver. Mass lesion extends to hepatic hilum and common hepatic duct with associated intrahepatic biliary ductal dilatation. Centrally necrotic cyndy hepatic/portacval lymphadenopathy, enlarged upper abdominal lymph nodes. Pt also presented with SVT while in ED, converted to sinus tach after receiving adenosine. SVT, converted to sinus tachycardia after administration of adenosine 6 mg IV-- resolved, likely secondary to hypokalemia -Admitted to telemetry. 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 2 temporary stents placed in common bile duct. Will need repeat ERCP in 6 weeks to exchange stents. -Cytology pending. -Alpha fetoprotein pending -Oncology on board, appreciate recs. Spoke with Dr. Graves, who saw pt over the weekend. If bilirubin is trending down and pt otherwise stable, she may go home and will follow up with oncology as an outpatient. -CT chest w/IV contrast ordered to check for pulmonary metastasis or primary tumors Abnormal UA: Concern for UTI -Urine culture shows mixed daya, skin contaminants -D/C Levaquin Levaquin started 01/03 Hyperglycemia -Insulin sliding scale -Check BSGs q ac and qhs -HgbA1c was 6.0 Code Status -Level I, FULL RESUSCITATION STATUS Dispo -PT/OT evaluate and treat to help determine discharge needs -Anticipate possible discharge tomorrow if remains stable (Tereza Baker ., PA-C) I agree with PA assessment and plan and have seen and examined pt myself VSS Labs reviewed Resolving bilirubinemia Will obtain CT chest Awaiting path Heme/onc consulted, appreciate recs (Andrews Gudino, D.O.)
--- NOTE | 2017-01-04 14:08 | DIAGNOSTIC IMAGING REPORT ---
CT OF THE CHEST WITH IV CONTRAST CLINICAL HISTORY: Hepatic neoplasm. Evaluate for primary tumor metastatic disease. COMPARISON STUDY: No previous studies for comparison. TECHNIQUE: Following the IV administration of 93 mL of Optiray-320, CT of the thorax was performed from the thoracic inlet to the lung bases. Images are reviewed in the axial, sagittal, and coronal planes. IV contrast was administered without complication. CT DOSE: 303.84 mGy.cm FINDINGS: Thyroid: Imaged portions of the thyroid gland are normal in appearance. Thoracic aorta: The thoracic aorta is normal in course and caliber, noting standard 3-vessel arch anatomy. No aneurysm or dissection is seen. Pulmonary vasculature: The pulmonary trunk is normal in caliber. There are no central filling defects identified to suggest pulmonary embolus. Note that this examination was not protocoled for the evaluation of pulmonary emboli. HEART: The heart is normal in size and configuration, without pericardial effusion. Lungs and pleural spaces: There are no significant pleural effusions. There is no focal pulmonary consolidation. There are no suspicious pulmonary masses. Mediastinum: Mediastinal lymph nodes are the upper limits of normal in size. Radha: Clear. Axilla: Clear. Upper abdomen: There is a 6 cm right lobe hepatic mass. There is biliary ductal dilatation. There is an indwelling biliary enteric stent. There is adenopathy in the region the gastrohepatic ligament. There is periportal/peripancreatic adenopathy. There is a large hiatal hernia Skeletal structures: There are no lytic or blastic osseous lesions. There is a T12 vertebral body hemangioma IMPRESSION: 1. Study compromised due to motion artifact 2. No evidence of intrathoracic neoplasm 3. 6 cm right lobe hepatic mass, biliary ductal dilatation, gastrohepatic ligament and right portal/peripancreatic adenopathy. 4. Hiatal hernia Electronically signed by: Tommy Crum M.D. 01/04/2017 2:07 PM Dictated Date/Time: 01/04/2017 1:59 PM
--- NOTE | 2017-01-04 15:35 | PROGRESS NOTE ---
DATE: 01/04/2017 HISTORY OF PRESENT ILLNESS: History was obtained through her daughter acting as an panel wirer. The patient reports no significant change. The patient is afebrile. Blood pressure is 154/87, pulse 108. Her endoscopic evaluation yesterday by Dr. Frederick showed a tumor in the bifurcation of the bile duct. Brushings came back today positive for being suspicious for carcinoma. Alpha fetoprotein is pending. I ordered in addition to that a CEA and CA 19-9 level. The stricture in the bile duct was stented by Dr. Frederick and it is recommended by him that this be exchanged in the next 6-8 weeks. Oncology has been consulted for further evaluation. I conveyed this information to the patient through her daughter and she had no further questions.
[2017-01-04] MEDS ORDERED: NURSING VERBAL MED ORDER ONE (17:45)
[2017-01-05 04:07] VITALS: BP 144/89; PULSE 81; TEMP 36.5; O2SAT 94
[2017-01-05 06:58] LABS: BASO % 0.2 %; BASO ABS # 0.02 K/uL (0-0.2); COMPLETE YES; EOS % 2.2 %; HEMATOCRIT 33.8 % (37-47); IG% 0.2 %; LYMPH ABS # 1.22 K/uL (1.2-3.4); MEAN CORPUSCULAR HEMOGLOBIN 23.9 pg (25-34); MEAN CORPUSCULAR HGB CONC 32.2 g/dl (32-36); MEAN PLATELET VOLUME 10.3 fL (7.4-10.4); NEUT % 72.4 %; PLATELET COUNT 248 K/uL (130-400); RED BLOOD COUNT 4.57 M/uL (4.2-5.4); WHITE BLOOD COUNT 9.36 K/uL (4.8-10.8)
[2017-01-05 07:37] LABS: BUN/CREATININE RATIO 13.9 (10-20); CALCIUM 8.8 mg/dl (8.5-10.1); CREATININE 0.62 mg/dl (0.60-1.20); POTASSIUM 3.5 mmol/L (3.5-5.1)
[2017-01-05 09:53] VITALS: BP 146/93; PULSE 94; TEMP 36.3; O2SAT 94
[2017-01-05] MEDS ORDERED: POTA20TA13 PO (11:13)
--- NOTE | 2017-01-05 11:40 | Discharge Instructions ---
Discharge Instructions Admission Reason for Admission: Hepatic Cancer Svt Discharge Discharge Diagnosis / Problem: Liver lesion, supraventricular tachycardia Discharge Goals Goal(s): Decrease discomfort, Diagnostic testing, Therapeutic intervention Activity Recommendations Activity Limitations: resume your previous activity (as tolerated) . Instructions / Follow-Up Instructions / Follow-Up You were admitted to the hospital with palpitations, weakness and fatigue. In the ER you were found to have supraventricular tachycardia, which is an abnormal , fast rhythm. You were given an IV medication called adenosine which corrected the abnormal rhythm, although your heart rate was still fast. You were found to have low potassium in your blood, which is likely what precipitated the arrhythmia. You were monitored on telemetry for cardiac monitoring, which did not show any recurrence of the abnormal rhythm once your potassium was replaced. A few days prior to arrival to the ER, you had a recent CAT scan of your abdomen had shown a large liver lesion that was concerning for cancer. Gastroenterology and oncology were consulted. A procedure called an endoscopic retrograde cholangiopancreatogram was performed, which showed a stricture in your biliary system that appeared malignant. Temporary stents were placed. Following the procedure, your jaundice and abdominal pain improved, as well as your blood work. Your liver function tests continued to improve each day following the stent placement, and you are now medically stable for discharge home. A CAT scan of the chest was also clear for any other tumors. You will need to follow up with gastroenterology and oncology regarding further treatment for the suspected liver cancer. There are still some test results that are pending, but these results will be reviewed with you at your follow ups after they come in. Medications: Please take potassium chloride 20 mEq by mouth daily. The abnormal heart rhythm was likely due to low potassium, so it is important that you take this potassium supplement every day to prevent this from happening again. Follow up: Please follow up with oncology and gastroenterology within 1 week following discharge regarding further management. Please seek medical attention if you experience fevers, chills, sweats, chest pain, shortness of breath, nausea, vomiting, abdominal pain, or jaundice ( yellowing of skin or eyes). Current Hospital Diet Patient's current hospital diet: Low Fiber Diet Discharge Diet Recommended Diet: Low Fiber Diet Procedures Procedures Performed: Endoscopic Ultrasound, Esophagogastroduodenoscopy, Endoscopic Retrograde Cholangiopancreatography Pending Studies Studies pending at discharge: yes List of pending studies: Alpha fetoprotein marker, CA 19-9 antigen, anti-nuclear antibody screen, anti-mitochondrial antibody Laboratory Results Hemoglobin A1c Test 01/02/17 21:15 Range/Units Estimated Average Glucose 126 mg/dl Hemoglobin A1c 6.0 H 4.5-5.6 % Medical Emergencies . Who to Call and When: Medical Emergencies: If at any time you feel your situation is an emergency, please call 911 immediately. . Non-Emergent Contact Non-Emergency issues call your: Primary Care Provider, Meter Maker, Oncologist Call Non-Emergent contact if: you have a fever, your pain is worsening, your pain is concerning you, you have any medication questions . Past History Medical & Surgical History: (1) Supraventricular tachycardia (2) Liver lesion, right lobe (3) Hypertension . "Provider Documentation" section prepared by Tereza Baker. VTE Core Measure Inpt VTE Proph given/why not?: SCD's
[2017-01-05 12:22] VITALS: BP 146/93; PULSE 94; TEMP 36.3; O2SAT 94
--- NOTE | 2017-01-05 13:14 | Discharge Summary ---
Discharge Summary Admission Date: Jan 02, 2017 at 17:37 Discharge Date: Jan 05, 2017 Discharge Disposition: Home Principal Diagnosis: Hepatic lesion, SVT Procedures: Patient: AXEL BLANTON I Admit Date: 01/02/1702/18/17 Med Rec: [id number] Acct ID: [id number] [~ rep ct labl] Page 2of 2 p: [~ rep prt dt last] [~ rep prt tm last] [~ rep ct labl] Page 1of 1 p: [~ rep prt dt last] [~ rep prt tm last] GI REPORT [place] Patient: AXEL BLANTON I Admit Date: 01/02/1702/18/17 Med Rec: [id number] Att Phy: Zunilda Acevedo DO Acct ID: [id number] Christal Phy: Agata Friend M.D. Date: 1945 Ref Phy: Self, Referred Fam Phy: Agata Friend M.D. Age: 71 Location: [facility] Sex: F Room/Bed: [facility] MNE:PROVATION REPORT #: [id number] CC: Ramírez Frederick M.D. Endcc: DICTATED BY: Ramírez Frederick M.D. Procedure Date: 01/03/2017 4:01 PM Procedure: ERCP Indications: Jaundice Medicines: General Anesthesia Complications: No immediate complications. Estimated blood loss: None Estimated Blood Loss: Estimated blood loss: none. Procedure: Pre-Anesthesia Assessment: - Prior to the procedure, a History and Physical was performed, and patient medications and allergies were reviewed. The patient's tolerance of previous anesthesia was also reviewed. The risks and benefits of the procedure and the sedation options and risks were discussed with the patient. All questions were answered, and informed consent was obtained. Prior Anticoagulants: The patient has taken no previous anticoagulant or antiplatelet agents. ASA Grade Assessment: II - A patient with mild systemic disease. After reviewing the risks and benefits, the patient was deemed in satisfactory condition to undergo the procedure. After obtaining informed consent, the scope was passed under direct vision. Throughout the procedure, the patient's blood pressure, pulse, and oxygen saturations were monitored continuously. The Scope was introduced through the mouth, and advanced to the duodenum and used to inject contrast into the bile duct. The ERCP was accomplished without difficulty. The patient tolerated the procedure well. Findings: The head baggage porter film was normal. The esophagus was successfully intubated under direct vision. The scope was advanced to a normal major papilla in the descending duodenum without detailed examination of the pharynx, larynx and associated structures, and upper GI tract. The upper GI tract was grossly normal. A straight 0.035 inch Tracer Metro Direct wire was passed into the biliary tree on the first attempt. The short-nosed traction sphincterotome was passed over the guidewire and the bile duct was then deeply cannulated. Contrast was injected. I personally interpreted the bile duct images. Ductal flow of contrast was adequate. Image quality was adequate. Contrast extended to the entire biliary tree. Opacification of the entire biliary tree was successful. The maximum diameter of the ducts was 10 mm. The common hepatic duct/confluence contained a single moderate stenosis 20 mm in length. A 4 mm biliary sphincterotomy was made with a short-tip traction sphincterotome using ERBE electrocautery. There was no post-sphincterotomy bleeding. Cells for cytology were obtained by brushing. One 7 Fr by 12 cm temporary plastic biliary stent with a single external flap and a single internal flap was placed 12 cm into the common bile duct and across the the stricture toward the rt ductal system over a wire.. Bile flowed through the stent. The stent was in good position. One 7 Fr by 15 cm temporary stent with a single external flap and a single internal flap was placed 15 cm into the common bile duct into the left main and across the stricture over a wire.. Bile flowed through the stent. The stent was in good position. Impression: - A moderate biliary stricture was found. The stricture was malignant appearing. - A sphincterotomy was performed. - One temporary plastic biliary stent was placed into the common bile duct see above - One temporary stent was placed into the common bile duct-see above. - The PD was neither instrumented nor opacified. Recommendation: - [facility]. - Advance diet as tolerated. - Check alpha-fetoprotein today. - Repeat ERCP in 6 weeks to exchange stent. - Await cytology results. - Depending on cytology results and EUS FNA, may need additional sampling either by repeat EUS vs IR percutaneously. MD Ramírez Markham MD 01/03/2017 5:55:25 PM This report has been signed electronically. Note Initiated On: 01/03/2017 4:01 PM I attest to the content of the Intraoperative Record and orders documented therein, exceptions below Dictated: 01/03/17 1601 Signed: 01/03/17 1759 The status of this report is Signed. Draft = Not yet reviewed or approved by Medical Physician. Signed = Reviewed and approved by Medical Physician. <ConsultingPhyMNE>f pt consult dr solo</ConsultingPhyMNE> <FamilyPhyMNE>f pt fam dr solo</FamilyPhyMNE> <OtherPhyMNE>f pt other dr solo</OtherPhyMNE> < PrimaryPhyMNE>f pt prim care dr solo</PrimaryPhyMNE> <ReferringPhyMNE>f pt referring dr solo</ReferringPhyMNE> (Tereza Baker, GONZÁLEZ-C) Medication Reconciliation New Medications: Potassium Chloride Microencaps (Potassium Chloride Er) 20 Meq Tab 1 TAB PO DAILY for 30 Days, #30 TAB Take 1 tablet by mouth once daily. Referrals At Discharge Follow up Referrals: Senior Tableau Developer Referral - Within 1-2 Weeks with Ramírez Frederick M.D. Oncology/Hematology Referral - Within 1 Week with Dean Graves MD Discharge Exam Patient does not speak Czech. Daughter at bedside to translate. Patient says she did not sleep as well before, but her appetite has been good and she reports feeling well. She denies chest pain, difficulty breathing, nausea, vomiting, and abdominal pain. Review of Systems: Constitutional: No chills, No fever, No sweats Eyes: No diplopia, No eye pain, No worsening of vision ENT: No hearing loss, No sore throat, No trouble swallowing Respiratory: No cough, No shortness of breath, No wheezing Cardiovascular: No chest pain, No claudication, No palpitations Abdomen: No nausea, No pain, No vomiting Musculoskeletal: No calf pain, No joint pain, No muscle pain Genitourinary - Female: No dysuria, No hematuria, No urinary retention Neurologic: No numbness/tingling, No paralysis, No weakness Integumentary: No color change, No itch, No rash Physical Exam: General Appearance: WD/WN, no apparent distress Eyes: normal inspection, PERRL, EOMI ENT: normal ENT inspection, hearing grossly normal, pharynx normal Neck: supple, no JVD, trachea midline Respiratory/Chest: lungs clear, normal breath sounds, no respiratory distress Cardiovascular: regular rate, rhythm, no gallop, no murmur, + tachycardia Abdomen / GI: normal bowel sounds, non tender, soft Neurologic/Psychiatric: alert, normal mood/affect, oriented x 3 Skin: normal color, warm/dry, no rash (Tereza Baker ., SOLOMON) Hospital Course 71 y/o female with a history of HTN presented to the ED with palpitations, weakness, fatigue, and skin pallor. Recent CT of abdomen pelvis (12/31) shows large 7.5 cm heterogeneous mass lesion in right lobe of liver. Mass lesion extends to hepatic hilum and common hepatic duct with associated intrahepatic biliary ductal dilatation. Centrally necrotic cyndy hepatic/portacval lymphadenopathy, enlarged upper abdominal lymph nodes. Pt also presented with SVT while in ED, converted to sinus tach after receiving adenosine. SVT, converted to sinus tachycardia after administration of adenosine 6 mg IV-- resolved, likely secondary to hypokalemia -Admitted to telemetry. 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 Will need to f/u outpatient -MRCP showed large centrally necrotic mass of the right hepatic lobe demonstrating potential invasion and or obstructive change of the peripheral biliary ductal system. Potential secondary mass/adenopathy surrounding or adjacent to the distal common bile duct. This appears to be creating distention of the proximal biliary ductal system. This measures 3.5 cm maximum dimension. Two independent lesions, both of which demonstrate obstructive change to the central and peripheral pillar ductal systems. -ERCP 01/03 showed moderate stricture which appears malignant. 2 temporary stents placed in common bile duct. Will need repeat ERCP in 6 weeks to exchange stents. -Cytology pending. Endoscopic brushings suspicious for carcinoma -Alpha fetoprotein, CA 19-9 antigen, FEDE screen, and anti-mitochondrial antibody pending -CEA elevated at 18 -Oncology on board, appreciate recs. Spoke with Dr. Graves, who saw pt over the weekend. If bilirubin is trending down and pt otherwise stable, she may go home and will follow up with oncology as an outpatient. -CT chest w/IV contrast negative for intrathoracic neoplasms Abnormal UA: Concern for UTI -Urine culture shows mixed daya, skin contaminants -D/C Levaquin Levaquin started 01/03 Hyperglycemia -Insulin sliding scale -Check BSGs q ac and qhs -HgbA1c was 6.0 Code Status -Level I, FULL RESUSCITATION STATUS Dispo -PT evaluated, patient is safe to return home without services, patient discharged from inpatient PT services -Medically stable for discharge to home while studies/tests are pending -Will f/u with oncology and GI regarding further management Total Time Spent: Greater than 30 minutes This includes examination of the patient, discharge planning, medication reconciliation, and communication with other providers. (Tereza Baker ., PA-C) I agree with PA assessment and plan and have personally seen and examined pt myself Pt reports no pain, fevers VSS Abd: Soft, NT, ND Bilirubin trending down Hemodynamically stable Can be dced F/U with oncology and GI on discharge in 1 week (Andrews Gudino D.O.) Discharge Instructions Please refer to the electronic Patient Visit Report (Discharge Instructions) for additional information. (Tereza Baker ., PA-C) Additional Copies To Agata Friend M.D.
--- NOTE | 2017-01-05 14:03 | GASTROENTEROLOGY PROGRESS NOTE ---
DATE: 01/05/2017 DATE: 01/05/2017. HISTORY OF PRESENT ILLNESS: The patient is resting in the chair surrounded by her daughters. Through them she describes that her urine is returning to a normal color. There is no itching and/or abdominal pain. VITAL SIGNS: Stable, temperature 36.3, pulse 94, respirations 16, pulse ox 94% on room air. ALLERGIES: No known drug allergies. MEDICATIONS: Unchanged from yesterday and include Ambien, morphine, promethazine, Benadryl, Ativan. LABORATORY STUDIES: That are available include a hemoglobin that has been stable at 10.9, although MCV 74.0. Platelets are normal at 248,000. Liver tests have shown continued resolution with a total bilirubin of 1.6 and direct bilirubin of 1.1. AST is down to 88, ALT 110, alkaline phosphatase 519, albumin 2.5. Alpha feta protein is still pending as is CA 19-9. CEA is elevated at 18.0, I suspected that some of the liver tests may not completely resolve due to the sizable tumor burden in the right lobe of the liver. The pathology findings on the cytology brush from the proximal common hepatic duct/confluence reveals rare atypical cells suspicious for carcinoma. These have prominent nucleoli. The samples taken by fine needle expiration by EUS guidance are still pending. REVIEW OF SYSTEMS: Otherwise noncontributory based on 14-point exam. PHYSICAL EXAMINATION: HEAD, EYES, EARS, NOSE, AND THROAT: The patient is awake, alert and oriented x3 Sclerae anicteric. HEART: Normal S1, S2. LUNGS: Clear to auscultation. ABDOMEN: Soft, nontender, nondistended. Good bowel sounds. EXTREMITIES: Without clubbing, cyanosis or edema. RECTAL EXAMINATION: Deferred at this time. IMPRESSION: Large liver mass with suspected adenopathy. Await EUS FNA of hilar lymph nodes. These findings are concerning for an adenocarcinoma presently of unclear type. Await additional markers and the FNA results. The patient's other underlying issue is a microcytic anemia. There was a surgery performed in [place] for which a part of the colon was reportedly removed and underwent eventual reversal of a colostomy. They seemed to recall that a colonoscopy was done at [facility] in 2006. However, I have been unable to relocate this report. In any event, given the anemia, history of some colon resection for a lesion as well as the findings in the liver and lymph nodes I believe it is reasonable as an outpatient for the patient to undergo colonoscopy. Further recommendations once the fine needle results are available as well as additional tumor markers. The patient also followed by oncology. Will continue to follow along with you during the hospitalization and make plans for colonoscopy as an outpatient. All questions answered for the patient and her family.
[2017-01-06 12:36] LABS: AFP TUMOR MARKER SERUM 6.7 NG/ML (<6.1)
[2017-01-06 15:11] LABS: AFP TUMOR MARKER SERUM 6.3 NG/ML (<6.1)
[2017-01-14] MEDS ORDERED: CRD60 PO (15:41)
[2017-02-26] MEDS ORDERED: PRED20TA PO (12:50)
[2017-02-26] MEDS ORDERED: DILT120C68 PO (12:50)
[2017-02-26] MEDS ORDERED: OXYC1TAB3 PO (12:50)
[2017-02-26] MEDS ORDERED: ZFR/8 PO (12:50)
[2017-02-26] MEDS ORDERED: PROC1TAB5 PO (12:50)
== END 2017-01-05 13:25 | disposition home or self-care (01) | DRG 436 ==
LOC: CANRESERV → ENRESERVDT → ENRESERVTM → C.EDB 14:22 → C.2E 17:37 → EDBEDREQ 17:42 → CANBEDREQ 18:30 → C.2E 19:05 → UNDOADMIN 19:05 → C.2E 01-03 15:27 → C.2T 01-03 15:27 → C.4E 01-04 12:12
PROVIDERS: ADMIT Hospitalist; ATTEND Family Medicine
PROC: 0F798DZ Dilation of Common Bile Duct with Intraluminal Device, Via Natural or Artificial Opening Endoscopic (ICD-10-PCS; principal; 2017-01-03 13:00)
DX: C22.1 Intrahepatic bile duct carcinoma (principal); I47.1 Supraventricular tachycardia; K81.0 Acute cholecystitis; R17 Unspecified jaundice; R59.1 Generalized enlarged lymph nodes; I10 Essential (primary) hypertension; K42.9 Umbilical hernia without obstruction or gangrene; D50.9 Iron deficiency anemia, unspecified; E87.6 Hypokalemia; R73.9 Hyperglycemia, unspecified; R07.9 Chest pain, unspecified; R10.9 Unspecified abdominal pain; R16.0 Hepatomegaly, not elsewhere classified; R93.8 Abnormal findings on diagnostic imaging of other specified body structures

== ENCOUNTER 2017-01-12 18:01 | Inpatient (IN) | payer OTHER ==
[~2017-01-12] VITALS: Ht 167.6 cm; Wt 75.8 kg
[~2017-01-12 18:01] MED LIST changes: -CARV25TA2 PO; -CPR/500 PO; -CRD60 PO; -DILT120C68 PO; -IBUP-1050 PO; -OXYC1TAB3 PO; -PRED20TA PO; -PROC1TAB5 PO; -ZFR/8 PO
[2017-01-12] MEDS ORDERED: ONDANSETRON INJ 2 MG/ML 2 ML VIAL IV STA (18:17)
[2017-01-12] MEDS ORDERED: SODIUM CHLORIDE 0.9% 1000ML 2,000 ML IV STA (18:17)
--- NOTE | 2017-01-12 18:27 | EMERGENCY ROOM VISIT NOTE ---
History Report prepared by Tato: Joseluis Pang Under the Supervision of: Dr. Jorge Bentley M.D. First contact with patient: 18:12 Chief Complaint: HYPOTENSION Stated Complaint: LOW BLOOD PRESSURE History of Present Illness The patient is a 71 year old female who presents to the Emergency Room with complaints of worsening hypotension beginning about 3 days ago. Per the patient' s daughters, she was in the hospital 1 week ago for a lesion on her liver and has also been weak recently. The patient does not have any fever, cough, vomiting, diarrhea, or urinary symptoms. She has had less of an appetite recently, but has been eating. She is scheduled to meet with an oncologist next week. The patient does not speak Kosovan. Source of History: family Onset: about 3 days ago Position: other (global) Quality: other (hypotension) Timing: worsening Associated Symptoms: + weakness, No cough, No diarrhea, No fevers, No urinary symptoms, No vomiting Note: The patient has had lowered blood pressure. Review of Systems See HPI for pertinent positives & negatives. A total of 10 systems reviewed and were otherwise negative. Past Medical & Surgical Medical Problems: (1) Hypertension (2) Liver lesion, right lobe (3) Supraventricular tachycardia Family History Patient reports no known family medical history. Social History Smoking Status: Never Smoker Drug Use: none Marital Status: Occupation Status: retired Current/Historical Medications Scheduled Carvedilol (Coreg), 50 MG PO BID Potassium Chloride Microencaps (Potassium Chloride Er), 20 MEQ PO DAILY Allergies Coded Allergies: No Known Allergies (Unverified , 01/02/17) Physical Exam Vital Signs Date Time Temp Pulse Resp B/P Pulse Ox O2 Delivery O2 Flow Rate FiO2 01/12/17 20:56 120 01/12/17 20:14 64 16 108/71 98 Room Air 01/12/17 19:50 126 18 98 Room Air 01/12/17 19:19 72 16 122/69 98 Room Air 01/12/17 18:06 56 16 64/50 98 Room Air Physical Exam GENERAL: Patient is in moderate distress secondary to what appears to be pain. HEENT: No acute trauma, normocephalic atraumatic, mucous membranes moist, no nasal congestion, no scleral icterus. NECK: No stridor, no adenopathy, no meningismus, trachea is midline. LUNGS: Clear to auscultation bilaterally, no wheeze, no rhonchi, breath sounds equal. HEART: Without murmurs gallops or rubs, regular rate and rhythm. ABDOMEN: Soft; diffusely mildly tender, but moderately tender in epigastrium and upper quadrants; bowel sounds positive, no hernias, no peritonitis. EXTREMITIES: No cyanosis or edema, full range of motion of all the joints without pain or difficulty, no signs for acute trauma. NEUROLOGIC: Oriented x 3, no acute motor or sensory deficits, no focal weakness. SKIN: Extremely pale and cool to the touch. Medical Decision & Procedures ER Provider Diagnostic Interpretation: Radiology results are stated below per my review and radiologist interpretation: CHEST ONE VIEW PORTABLE FINDINGS: The heart is borderline enlarged. There is indistinctness of the left hemidiaphragm, likely secondary to the hiatal hernia visualized on the recent CT scan. There is no lobar consolidation. There is no significant pleural fluid.[ IMPRESSION: Left basilar opacity, likely secondary to the patient's known hiatal hernia. Electronically signed by: Tommy Crum M.D. 01/12/2017 6:56 PM Dictated Date/Time: 01/12/2017 6:[address] ABD/PELVIS IV CONTRAST ONLY FINDINGS: Lower chest: There are mild basilar atelectatic changes. There is a large hiatal hernia. Liver: There is an 8 cm central hepatic mass, which was described on the prior study. There is intrahepatic biliary ductal dilatation. Since the prior study, a biliary enteric stent has been placed. Gallbladder: The gallbladder is contracted. There is air within the gallbladder. There is a gallstone present. Spleen: Normal in size and attenuation. Pancreas: Unremarkable. Adrenal glands: Unremarkable. Kidneys: There is symmetric renal cortical enhancement. The kidneys are normal in size without hydronephrosis. Bowel: There are no transition zones indicate bowel obstruction. There are multiple ventral hernias. There is small bowel within a periumbilical ventral hernia. This is not currently resulting in obstruction. There is an ascending colon lipoma. Peritoneum: There is no intraperitoneal free air or abdominal ascites. Vasculature: The abdominal aorta is normal in course and caliber. Adenopathy: There is pathologic adenopathy within the cyndy hepatis. Pelvic viscera: There is a possible catheter present within the endometrial cavity Skeletal structures: There is a T12 vertebral body hemangioma IMPRESSION: 1. No evidence of acute hemorrhage 2. Large central hepatic mass consistent with neoplasm. There is secondary ductal dilatation 3. Pathologic adenopathy within the cyndy hepatis 4. Cholelithiasis 5. Interval placement of a biliary enteric stent 6. No evidence of bowel obstruction. No evidence of free air 7. Multiple ventral hernias 8. Possible catheter within the endometrial cavity of the uterus 9. Hiatal hernia Electronically signed by: Tommy Crum M.D. 01/12/2017 7:18 PM Dictated Date/Time: 01/12/2017 7:11 PM Laboratory Results 01/12/17 18:30 Red Blood Count 4.57, Mean Corpuscular Volume 71.6, Mean Corpuscular Hemoglobin 23.2, Mean Corpuscular Hemoglobin Concent 32.4, Mean Platelet Volume 10.1, Neutrophils (%) (Auto) 81.0, Lymphocytes (%) (Auto) 7.3, Monocytes (%) (Auto) 9.9, Eosinophils (%) (Auto) 1.1, Basophils (%) (Auto) 0.5, Neutrophils # (Auto) 7.12, Lymphocytes # (Auto) 0.64, Monocytes # (Auto) 0.87, Eosinophils # (Auto) 0.10, Basophils # (Auto) 0.04 01/12/17 18:30 Test 01/12/17 18:30 01/12/17 18:33 01/12/17 18:41 01/12/17 19:05 White Blood Count 8.79 K/uL (4.8-10.8) Red Blood Count 4.57 M/uL (4.2-5.4) Hemoglobin 10.6 g/dL (12.0-16.0) Hematocrit 32.7 % (37-47) Mean Corpuscular Volume 71.6 fL (80-100) Mean Corpuscular Hemoglobin 23.2 pg (25-34) Mean Corpuscular Hemoglobin Concent 32.4 g/dl (32-36) Platelet Count 296 K/uL (130-400) Mean Platelet Volume 10.1 fL (7.4-10.4) Neutrophils (%) (Auto) 81.0 % Lymphocytes (%) (Auto) 7.3 % Monocytes (%) (Auto) 9.9 % Eosinophils (%) (Auto) 1.1 % Basophils (%) (Auto) 0.5 % Neutrophils # (Auto) 7.12 K/uL (1.4-6.5) Lymphocytes # (Auto) 0.64 K/uL (1.2-3.4) Monocytes # (Auto) 0.87 K/uL (0.11-0.59) Eosinophils # (Auto) 0.10 K/uL (0-0.5) Basophils # (Auto) 0.04 K/uL (0-0.2) RDW Standard Deviation 48.2 fL (36.4-46.3) RDW Coefficient of Variation 18.4 % (11.5-14.5) Immature Granulocyte % (Auto) 0.2 % Immature Granulocyte # (Auto) 0.02 K/uL (0.00-0.02) Anisocytosis PRESENT Prothrombin Time 11.8 SECONDS (9.0-12.0) Prothromb Time International Ratio 1.1 (0.9-1.1) Activated Partial Thromboplast Time 27.7 SECONDS (21.0-31.0) Partial Thromboplastin Ratio 1.1 Est Creatinine Clear Calc Drug Dose 57.0 ml/min Estimated GFR () 72.2 Estimated GFR (Non- 62.3 BUN/Creatinine Ratio 11.5 (10-20) Calcium Level 8.6 mg/dl (8.5-10.1) Magnesium Level 2.3 mg/dl (1.8-2.4) Total Bilirubin 1.5 mg/dl (0.2-1) Direct Bilirubin 1.0 mg/dl (0-0.2) Aspartate Amino Transf (AST/SGOT) 79 U/L (15-37) Alanine Aminotransferase (ALT/SGPT) 59 U/L (12-78) Alkaline Phosphatase 559 U/L (45-117) Troponin I < 0.015 ng/ml (0-0.045) Total Protein 7.7 gm/dl (6.4-8.2) Albumin 2.5 gm/dl (3.4-5.0) Lipase 195 U/L (73-393) Thyroid Stimulating Hormone (TSH) 0.419 uIu/ml (0.300-4.500) Free Thyroxine 1.56 ng/dl (0.80-1.60) Bedside Lactic Acid Venous 1.73 mmol/L (0.90-1.70) Bedside Hemoglobin 11.2 g/dl (12.0-16.0) Bedside Hematocrit 33 % (37-47) Bedside Sodium 135 mEq/L (135-144) Bedside Potassium 4.1 mEq/L (3.3-5.0) Bedside Chloride 103 mEq/L (101-112) Bedside Total CO2 19 mEq/l (24-31) Anion Gap 18.0 mmol/L (16-25) Bedside Blood Urea Nitrogen 11 mg/dl (7-18) Bedside Creatinine 0.8 mg/dl (0.6-1.3) Bedside Glucose (other) 227 mg/dl (70-99) Bedside Ionized Calcium (Katharina) 1.13 mmol/l (1.12-1.32) Urine Color DK YELLOW Urine Appearance CLEAR (CLEAR) Urine pH 7.5 (4.5-7.5) Urine Specific [place] > 1.045 (1.000-1.030) Urine Protein NEG (NEG) Urine Glucose (UA) NEG (NEG) Urine Ketones NEG (NEG) Urine Occult Blood NEG (NEG) Urine Nitrite NEG (NEG) Urine Bilirubin NEG (NEG) Urine Urobilinogen NEG (NEG) Urine Leukocyte Esterase NEG (NEG) Test 01/12/17 19:22 Lactic Acid Level 2.3 mmol/L (0.4-2.0) Laboratory results reviewed by me. Medications Administered Medications (Trade) Dose Ordered Sig/Luis Route Start Time Stop Time Status Last Admin Dose Admin Sodium Chloride (Nss 1000ml) 2,000 ml @ 999 mls/hr Q2H1M STAT IV 01/12/17 18:17 01/12/17 20:17 DC 01/12/17 19:15 999 MLS/HR Adenosine (Adenosine IV) 6 mg NOW STAT IV 01/12/17 19:53 01/12/17 19:54 DC 01/12/17 19:56 6 MG Metoprolol Tartrate 2.5 mg 2.5 mg NOW STAT IV 01/12/17 20:53 01/12/17 20:55 DC 01/12/17 21:24 2.5 MG Sodium Chloride (Nss 500ml) 500 ml @ 999 mls/hr Q31M STAT IV 01/12/17 20:53 01/12/17 21:23 DC 01/12/17 20:53 999 MLS/HR ECG Indication: other (hypotension) Rate (beats per minute): 84 Rhythm: normal sinus Findings: no acute ischemic change, no ectopy Change: Repeat EKG: SVT, rate of 123, non-specific ST changes, no acute ischemic change. ED Course 1813: The patient was evaluated in room C10. A complete history and physical exam was performed. 1816: Ordered Zofran Ing 4 mg IV, and NSS 2,000 ml @ 999 mls/hr IV. 1946: I reassessed the patient and she feels and looks better. The nurses will obtain another EKG. 1952: Ordered Adenosine 6 mg IV. 2004: Discussed the patient's case with Dr. Keller. The patient will be evaluated for further management. Medical Decision Differentials include anemia, intraabdominal bleeding, electrolyte imbalance, renal failure, hypovolemia, dehydration, and sepsis. There is no leukocytosis or concerning anemia. No significant electrolyte abnormality, kidney failure. There is a hepatitis present consistent with her recent diagnosis of a liver lesion. The patient appears to be in a euthyroid state. Chest x-ray does not show pneumonia or CHF. Urinalysis does not show infection. EKG shows a sinus rhythm, no acute ischemia. Cardiac enzyme testing times one is not consistent with acute cardiac injury. Lactic acid level was not significantly elevated making severe sepsis less likely. Abdominal and pelvis CT does not show any evidence for intra-abdominal bleeding. The liver lesion was again noted. The patient was aggressively managed. She presents hypotensive and seemed in distress. She was given IV saline 2 L, this improved her blood pressure to over 100 systolic. She received IV Zofran for nausea. The patient was feeling better. I walked into the room to talk with her and noted her to be SVT. Repeat EKG confirmed the SVT. She was given 6 milligrams of IV Adenosine and this converted her to a normal sinus rhythm. The patient had another bout of SVT here in the emergency room. She was given 2.5 mg of IV Lopressor. She did eventually convert to a sinus rhythm. I am not sure what has caused the hypotension. She apparently started to feel really poorly today after taking her Coreg. She has responded nicely to IV fluids. I do think admission/observation is warranted. I spoke with the patient and case management. The on-call hospitalist was consulted. Further workup is required. Consults Time Called: 1955 Consulting Physician: Dr. Keller - [facility] Returned Call: 2004 Discussed the patient's case with Dr. Keller. The patient will be evaluated for further management. Impression Primary Impression: Hypotension Additional Impressions: Dehydration SVT (supraventricular tachycardia) Critical Care I have personally spent greater than 30 minutes of critical care time in the direct management of this patient. This includes bedside care, interpretation of diagnostic studies and testing, discussion with consultants, the patient, and family members, and other required patient management activities. This 30 minutes is in excess of all separately billable procedures. Scribe Attestation The scribe's documentation has been prepared under my direction and personally reviewed by me in its entirety. I confirm that the note above accurately reflects all work, treatment, procedures, and medical decision making performed by me. Departure Information Dispostion Being Evaluated By Hospitalist Referrals Agata Friend M.D. (PCP) Patient Instructions My [facility] Problem Qualifiers
[2017-01-12] MEDS ORDERED: OPTIRAY 320 IV PRN (18:30)
[2017-01-12 18:50] LABS: HEMATOCRIT 32.7 % (37-47); MEAN CELL VOLUME 71.6 fL (80-100); MEAN CORPUSCULAR HEMOGLOBIN 23.2 pg (25-34); MEAN CORPUSCULAR HGB CONC 32.4 g/dl (32-36); MEAN PLATELET VOLUME 10.1 fL (7.4-10.4); PLATELET COUNT 296 K/uL (130-400); RED BLOOD COUNT 4.57 M/uL (4.2-5.4); WHITE BLOOD COUNT 8.79 K/uL (4.8-10.8)
[2017-01-12 18:53] LABS: ISTAT CREATININE 0.8 mg/dl (0.6-1.3); ISTAT HEMOGLOBIN 11.2 g/dl (12.0-16.0); ISTAT IONIZED CALCIUM 1.13 mmol/l (1.12-1.32)
--- NOTE | 2017-01-12 18:57 | DIAGNOSTIC IMAGING REPORT ---
CHEST ONE VIEW PORTABLE CLINICAL HISTORY: ABDOMINAL PAIN/GI COMPARISON STUDY: CT scan dated 01/04/2017 FINDINGS: The heart is borderline enlarged. There is indistinctness of the left hemidiaphragm, likely secondary to the hiatal hernia visualized on the recent CT scan. There is no lobar consolidation. There is no significant pleural fluid.[ IMPRESSION: Left basilar opacity, likely secondary to the patient's known hiatal hernia. Electronically signed by: Tommy Crum M.D. 01/12/2017 6:56 PM Dictated Date/Time: 01/12/2017 6:55 PM
[2017-01-12 19:01] LABS: INR 1.1 (0.9-1.1); PARTIAL THROMBOPLASTIN RATIO 1.1; PROTHROMBIN TIME (PATIENT) 11.8 SECONDS (9.0-12.0)
[2017-01-12 19:09] LABS: ALT/SGPT 59 U/L (12-78); AST/SGOT 79 U/L (15-37); BLOOD UREA NITROGEN 11 mg/dl (7-18); BUN/CREATININE RATIO 11.5 (10-20); CALCIUM 8.6 mg/dl (8.5-10.1); CARBON DIOXIDE 20 mmol/L (21-32); CHLORIDE 104 mmol/L (98-107); CREATININE 0.93 mg/dl (0.60-1.20); GLUCOSE 219 mg/dl (70-99); SODIUM 136 mmol/L (136-145)
[2017-01-12 19:14] LABS: ALKALINE PHOSPHATASE 559 U/L (45-117)
--- NOTE | 2017-01-12 19:19 | DIAGNOSTIC IMAGING REPORT ---
CT ABD/PELVIS IV CONTRAST ONLY CLINICAL HISTORY: Severe abdominal pain. History of liver mass. Possible acute hemorrhage. COMPARISON STUDY: 12/31/2016 TECHNIQUE: Following the IV administration of 118 mL of [id number], CT scan of the abdomen and pelvis was performed from the lung bases to the proximal femurs. Images are reviewed in the axial, sagittal, and coronal planes. IV contrast was administered without complication. CT DOSE: 436.81 mGy.cm FINDINGS: Lower chest: There are mild basilar atelectatic changes. There is a large hiatal hernia. Liver: There is an 8 cm central hepatic mass, which was described on the prior study. There is intrahepatic biliary ductal dilatation. Since the prior study, a biliary enteric stent has been placed. Gallbladder: The gallbladder is contracted. There is air within the gallbladder. There is a gallstone present. Spleen: Normal in size and attenuation. Pancreas: Unremarkable. Adrenal glands: Unremarkable. Kidneys: There is symmetric renal cortical enhancement. The kidneys are normal in size without hydronephrosis. Bowel: There are no transition zones indicate bowel obstruction. There are multiple ventral hernias. There is small bowel within a periumbilical ventral hernia. This is not currently resulting in obstruction. There is an ascending colon lipoma. Peritoneum: There is no intraperitoneal free air or abdominal ascites. Vasculature: The abdominal aorta is normal in course and caliber. Adenopathy: There is pathologic adenopathy within the cyndy hepatis. Pelvic viscera: There is a possible catheter present within the endometrial cavity Skeletal structures: There is a T12 vertebral body hemangioma IMPRESSION: 1. No evidence of acute hemorrhage 2. Large central hepatic mass consistent with neoplasm. There is secondary ductal dilatation 3. Pathologic adenopathy within the cyndy hepatis 4. Cholelithiasis 5. Interval placement of a biliary enteric stent 6. No evidence of bowel obstruction. No evidence of free air 7. Multiple ventral hernias 8. Possible catheter within the endometrial cavity of the uterus 9. Hiatal hernia Electronically signed by: Tommy Crum M.D. 01/12/2017 7:18 PM Dictated Date/Time: 01/12/2017 7:11 PM
[2017-01-12 19:20] LABS: ANISOCYTOSIS PRESENT; BASO % 0.5 %; BASO ABS # 0.04 K/uL (0-0.2); COMPLETE YES; EOS % 1.1 %; IG% 0.2 %; LYMPH % 7.3 %; LYMPH ABS # 0.64 K/uL (1.2-3.4); MONO % 9.9 %
[2017-01-12 19:30] LABS: URINE APPEARANCE CLEAR (CLEAR); URINE BILIRUBIN NEG (NEG); URINE COLOR DK YELLOW; URINE NITRITE NEG (NEG); URINE PH 7.5 (4.5-7.5); URINE SPECIFIC GRAVITY > 1.045 (1.000-1.030); UROBILINOGEN NEG (NEG); ZZURINE CULT IF INDIC CATH NO
[2017-01-12] MEDS ORDERED: POTA20TA13 PO (19:32)
[2017-01-12] MEDS ORDERED: CARV25TA2 PO (19:33)
[2017-01-12 19:36] LABS: MANUAL MICROSCOPIC REQUIRED? NO; REVIEW REQ? NO
[2017-01-12] MEDS ORDERED: ADENOSINE IV SOLN 3 MG/ML 2 ML VIAL IV STA (19:53)
[2017-01-12] MEDS ORDERED: METOPROLOL TARTRATE 1 MG/ML VIAL IV STA (20:53)
[2017-01-12] MEDS ORDERED: SODIUM CHLORIDE 0.9% 500ML 500 ML IV STA (20:53)
[2017-01-12] MEDS ORDERED: POLYETHYLENE (MIRALAX) 17 GM PACK PO PRN (21:00)
[2017-01-12] MEDS ORDERED: ALUMINUM/MAGNESIUM/SIMETH (MAALOX MAX) 30 ML UDC PO PRN (21:00)
[2017-01-12] MEDS ORDERED: ONDANSETRON INJ 2 MG/ML 2 ML VIAL IV PRN (21:00)
[2017-01-12] MEDS ORDERED: MAGNESIUM HYDROXIDE SUSP 30 ML UDC PO PRN (21:00)
[2017-01-12] MEDS ORDERED: ACETAMINOPHEN 325 MG TAB PO PRN (21:00)
[2017-01-12] MEDS ORDERED: CARVEDILOL 6.25 MG TAB PO SCH (21:00)
[2017-01-12] MEDS ORDERED: DILTIAZEM BOLUS / DRIP IV STA (21:41)
[2017-01-12 21:46] LABS: MAGNESIUM 2.3 mg/dl (1.8-2.4); THYROID STIMULATING HORMONE 0.419 uIu/ml (0.300-4.500)
[2017-01-12] MEDS ORDERED: DILTIAZEM HCL INJ 125 MG in DEXTROSE 5% 100ML IV PRN (22:00)
--- NOTE | 2017-01-12 22:13 | History and Physical ---
History & Physical Date & Time of Service: Jan 12, 2017 at 21:45 Chief Complaint: Low Blood Pressure Primary Care Physician: Agata Friend M.D. 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 Pt presented with identical complaints prior to liver mass diagnosis 12/31. She had a SBP of 85 and an HR of >130 while in the ER and was treated with Adenosine resulting temporarily in reversion to a sinus rhythm and improvement of her blood pressure. She received a fluid bolus whihc stabilized her pressure although she eventually reverted back to SVT with a HR of ~120. Throughout she has denied any CP, SOB, N/V or diaphoresis. Her daughters had apparently checked her BP at home and noted that it had been low throughout the day. They also state that she has had generally poor PO intake since her recent D/C from the hospital. She required 2 common bile duct stents following diagnosis of a liver mass due ductal involvement.. Past Medical/Surgical History Medical Problems: (1) Hypertension Status: Chronic 2) Liver mass with common bile duct involvement - required 2 stents 01/02 3) SVT Family History Patient reports no known family medical history. Social History Smoking Status: Never Smoker Drug Use: none Marital Status: Housing status: lives with family Occupational Status: retired Multi-Drug Resistant Organisms History of MDRO: No Allergies Coded Allergies: No Known Allergies (Unverified , 01/02/17) Home Medications Scheduled Carvedilol (Coreg), 50 MG PO BID Potassium Chloride Microencaps (Potassium Chloride Er), 20 MEQ PO DAILY Review of Systems Constitutional: + weakness, No chills, No fever, No sweats Eyes: No eye pain, No worsening of vision ENT: No hearing loss, No nasal symptoms, No unusual epistaxis Respiratory: No cough, No sputum, No wheezing Cardiovascular: + palpitations, No PND, No chest pain, No orthopnea Abdomen: + problem reported (poor appetite), No nausea, No pain, No vomiting Musculoskeletal: No joint pain, No muscle pain Genitourinary - Female: No dysuria, No urinary frequency, No urinary urgency Neurologic: No memory loss, No paralysis, No weakness Psychiatric: No depression symptoms Endocrine: No fatigue Hematologic / Lymphatic: No abnormal bleeding/bruising Integumentary: No rash Allergic / Immunologic: No environmental allergies Physical Exam Vital Signs Date Time Temp Pulse Resp B/P Pulse Ox O2 Delivery O2 Flow Rate FiO2 01/12/17 21:24 121 100/76 01/12/17 20:56 120 01/12/17 20:14 64 16 108/71 98 Room Air 01/12/17 19:50 126 18 98 Room Air 01/12/17 19:19 72 16 122/69 98 Room Air 01/12/17 18:06 56 16 64/50 98 Room Air General Appearance: WD/WN, no apparent distress, + pertinent finding (PAllor noted) Head: normocephalic, atraumatic Eyes: normal inspection, PERRL, EOMI ENT: normal ENT inspection, hearing grossly normal, TMs normal, pharynx normal Neck: supple, no adenopathy, thyroid normal, no JVD Respiratory/Chest: chest non-tender, lungs clear, normal breath sounds, no respiratory distress, no accessory muscle use Cardiovascular: no edema, no gallop, no JVD, + tachycardia Abdomen/GI: normal bowel sounds, non tender, soft Back: normal inspection, no CVA tenderness Extremities/Musculoskelatal: normal inspection, no calf tenderness, normal capillary refill, no pedal edema, normal range of motion 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, no motor/sensory deficits, alert, normal mood/affect, normal reflexes, oriented x 3 Skin: + pertinent finding (Pallor - no rashes) Diagnostics Laboratory Results Results Past 24 Hours Test 01/12/17 18:30 01/12/17 18:33 01/12/17 18:41 01/12/17 19:05 Range/Units White Blood Count 8.79 4.8-10.8 K/uL Red Blood Count 4.57 4.2-5.4 M/uL Hemoglobin 10.6 12.0-16.0 g/dL Hematocrit 32.7 37-47 % Mean Corpuscular Volume 71.6 80-100 fL Mean Corpuscular Hemoglobin 23.2 25-34 pg Mean Corpuscular Hemoglobin Concent 32.4 32-36 g/dl Platelet Count 296 130-400 K/uL Mean Platelet Volume 10.1 7.4-10.4 fL Neutrophils (%) (Auto) 81.0 % Lymphocytes (%) (Auto) 7.3 % Monocytes (%) (Auto) 9.9 % Eosinophils (%) (Auto) 1.1 % Basophils (%) (Auto) 0.5 % Neutrophils # (Auto) 7.12 1.4-6.5 K/uL Lymphocytes # (Auto) 0.64 1.2-3.4 K/uL Monocytes # (Auto) 0.87 0.11-0.59 K/uL Eosinophils # (Auto) 0.10 0-0.5 K/uL Basophils # (Auto) 0.04 0-0.2 K/uL RDW Standard Deviation 48.2 36.4-46.3 fL RDW Coefficient of Variation 18.4 11.5-14.5 % Immature Granulocyte % (Auto) 0.2 % Immature Granulocyte # (Auto) 0.02 0.00-0.02 K/uL Anisocytosis PRESENT Prothrombin Time 11.8 9.0-12.0 SECONDS Prothromb Time International Ratio 1.1 0.9-1.1 Activated Partial Thromboplast Time 27.7 21.0-31.0 SECONDS Partial Thromboplastin Ratio 1.1 Sodium Level 136 136-145 mmol/L Potassium Level 4.0 3.5-5.1 mmol/L Chloride Level 104 98-107 mmol/L Carbon Dioxide Level 20 21-32 mmol/L Anion Gap 12.0 18.0 16-25 mmol/L Blood Urea Nitrogen 11 7-18 mg/dl Creatinine 0.93 0.60-1.20 mg/dl Est Creatinine Clear Calc Drug Dose 57.0 ml/min Estimated GFR () 72.2 Estimated GFR (Non- 62.3 BUN/Creatinine Ratio 11.5 10-20 Random Glucose 219 70-99 mg/dl Calcium Level 8.6 8.5-10.1 mg/dl Total Bilirubin 1.5 0.2-1 mg/dl Direct Bilirubin 1.0 0-0.2 mg/dl Aspartate Amino Transf (AST/SGOT) 79 15-37 U/L Alanine Aminotransferase (ALT/SGPT) 59 12-78 U/L Alkaline Phosphatase 559 45-117 U/L Troponin I < 0.015 0-0.045 ng/ml Total Protein 7.7 6.4-8.2 gm/dl Albumin 2.5 3.4-5.0 gm/dl Lipase 195 73-393 U/L Bedside Lactic Acid Venous 1.73 0.90-1.70 mmol/L Bedside Hemoglobin 11.2 12.0-16.0 g/dl Bedside Hematocrit 33 37-47 % Bedside Sodium 135 135-144 mEq/L Bedside Potassium 4.1 3.3-5.0 mEq/L Bedside Chloride 103 101-112 mEq/L Bedside Total CO2 19 24-31 mEq/l Bedside Blood Urea Nitrogen 11 7-18 mg/dl Bedside Creatinine 0.8 0.6-1.3 mg/dl Bedside Glucose (other) 227 70-99 mg/dl Bedside Ionized Calcium (Katharina) 1.13 1.12-1.32 mmol/l Urine Color DK YELLOW Urine Appearance CLEAR CLEAR Urine pH 7.5 4.5-7.5 Urine Specific Radcliffe > 1.045 1.000-1.030 Urine Protein NEG NEG Urine Glucose (UA) NEG NEG Urine Ketones NEG NEG Urine Occult Blood NEG NEG Urine Nitrite NEG NEG Urine Bilirubin NEG NEG Urine Urobilinogen NEG NEG Urine Leukocyte Esterase NEG NEG Test 01/12/17 19:22 Range/Units Lactic Acid Level 2.3 0.4-2.0 mmol/L Diagnostic Radiology Recent MRCP showed large centrally necrotic mass of the right hepatic lobe demonstrating potential invasion and or obstructive change of the peripheral biliary ductal system. Potential secondary mass/adenopathy surrounding or adjacent to the distal common bile duct. This appears to be creating distention of the proximal biliary ductal system. This measures 3.5 cm maximum dimension. Two independent lesions, both of which demonstrate obstructive change to the central and peripheral pillar ductal systems. ERCP 01/03 showed moderate stricture which appears malignant. 2 temporary stents placed in common bile duct. 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 Pt presented with identical complaints prior to liver mass diagnosis 12/31. She had a SBP of 85 and an HR of >130 while in the ER and was treated with Adenosine resulting temporarily in reversion to a sinus rhythm and improvement of her blood pressure. She received a fluid bolus which stabilized her pressure although she eventually reverted back to SVT with a HR of ~120. Throughout she has denied any CP, SOB, N/V or diaphoresis. Her daughters had apparently checked her BP at home and noted that it had been low throughout the day. They also state that she has had generally poor PO intake since her recent D/C from the hospital. 1) Weakness - low BP - may be related to CA or to SVTs leading to decreased output - alternatively she may not be tolerating her Carvedilol. The pts pressure has improved following a fluid bolus. Her HR remains at approximately 120. We will place her on telemetry and start a Cardizem drip without bolus. We will consult cardiology. Her Carvedilol is held pending evaluation by cardiology. 2) SVT - placed on Cardizem as above - cardiology eval pending - echo ordered as there is not one on record. 3) HTN - Carvedilol held - will defer to cardilology - may need a dose decrease due to hypotension however we would assume she was having episodes of SVT at home 4) Liver mass - awaiting tissue diagnosis - pt is asymptomatic. Full code - Heparin prophylaxis Total time for this admit including chart review , med rec, rveiew of labs, imaging, EKG - discussion with pts family and ER attending 41 min Level of Care Telemetry Resuscitation Status FULL RESUSCITATION VTE Prophylaxis VTE Risk Assessment Done? Y/N: Yes Risk Level: High Given or contraindicated: Unfractionated heparin SQ
[2017-01-12 23:30] VITALS: BP 105/70; PULSE 68; TEMP 36.5; O2SAT 96; Ht 167.6 cm; Wt 75.8 kg
[2017-01-12] MEDS: SODIUM CHLORIDE 0.9% 1000ML 1,000 ML IV SCH (23:56)
[2017-01-13] VITALS (10 sets, daily range): BP systolic 99–154; BP diastolic 61–88; PULSE 57–82; TEMP 36.4–37; O2SAT 92–96
[2017-01-13 03:19] LABS: HEMATOCRIT 27.7 % (37-47); MEAN CELL VOLUME 73.7 fL (80-100); MEAN CORPUSCULAR HEMOGLOBIN 23.7 pg (25-34); MEAN CORPUSCULAR HGB CONC 32.1 g/dl (32-36); MEAN PLATELET VOLUME 10.4 fL (7.4-10.4); PLATELET COUNT 209 K/uL (130-400); RED BLOOD COUNT 3.76 M/uL (4.2-5.4); WHITE BLOOD COUNT 6.48 K/uL (4.8-10.8)
[2017-01-13 03:33] LABS: BUN/CREATININE RATIO 15.7 (10-20); CALCIUM 8.1 mg/dl (8.5-10.1); CREATININE 0.56 mg/dl (0.60-1.20); MAGNESIUM 2.1 mg/dl (1.8-2.4); POTASSIUM 3.8 mmol/L (3.5-5.1)
[2017-01-13] MEDS ORDERED: PNEUMOCOCCAL POLYSACCHARIDES 25 MCG/0.5 ML VIAL/SYR IM. ONE (04:15)
[2017-01-13] MEDS ORDERED: INFLUENZA VIRUS QUAD VACCINE 0.5 ML SYR IM. ONE (04:15)
[2017-01-13] MEDS ORDERED: PNEUMOCOCCAL ADMINISTRATION CHARGE ONE (04:15)
[2017-01-13] MEDS ORDERED: INFLUENZA ADMINISTRATION CHARGE ONE (04:15)
[2017-01-13] MEDS: SODIUM CHLORIDE 0.9% 1000ML 1,000 ML IV SCH (05:19)
[2017-01-13] MEDS: HEPARIN SOD 5000 UNIT/0.5 ML CARP SQ SCH ×3 (05:35→21:04)
[2017-01-13 06:17] LABS: ESTIMATED AVERAGE GLUCOSE 117 mg/dl; HA1C FLAG Normal (Normal)
[2017-01-13] MEDS: POTASSIUM CHLORIDE 20 MEQ TABCR PO SCH (08:17)
[2017-01-13] MEDS ORDERED: DILTIAZEM HCL 60 MG TAB PO ONE (10:30)
--- NOTE | 2017-01-13 12:01 | CARDIOLOGY CONSULTATION ---
DATE OF CONSULTATION: 01/13/2017 PRIMARY PHYSICIAN: Agata Friend M.D. REFERRING PHYSICIAN: Pj Keller M.D. CONSULTING PHYSICIAN: Royal Mckee M.D. HISTORY OF PRESENT ILLNESS: The patient is a 71-year-old white female. She has a longstanding history of hypertension and supraventricular tachycardia. She also has a history of dyslipidemia, type 2 diabetes mellitus, and gastroesophageal reflux disease. She is well known to me from the office setting. She underwent a CT scan of her abdomen on December 31 because of complaints of abdominal pain. This revealed evidence of a heterogeneous mass in the right lobe of the liver consistent with a cholangiocarcinoma. Metastatic disease was present in abdominal lymph nodes as well as in the hepatic and portacaval region. She presented to [facility] on 01/02/2017 with complaints of palpitations, weakness, and fatigue. She was found to have a supraventricular tachycardia with a rate of approximately 160 beats per minute. She was given intravenous adenosine, which converted her rhythm to sinus rhythm. During the admission, she underwent ERCP. There is a moderate biliary stricture noted. A sphincterotomy and biliary stent was placed into the common bile duct. She also underwent biopsy and brushing, the brushing returned with rare atypical cells, suspicious for carcinoma. The duodenal biopsy showed no evidence of malignancy. She was discharged home on January 05. It appears that her discharge medications were potassium 20 mEq daily and carvedilol 50 mg b.i.d. The patient was last seen by me in cardiology followup as an outpatient on 08/19/2016. At that time, she was on carvedilol 37.5 mg b.i.d., HCTZ 25 mg daily, Lisinopril 40 mg daily. The carvedilol at that time was increased to 50 mg b.i.d. as she still had marked hypertension. Her blood pressure on that visit was 185/111 mmHg. Repeat blood pressure was 180/98. The patient again presented to [facility] last evening. Family reported that the patient had decreasing blood pressures in the 3 days prior to admission. The patient only speaks [place]. History was obtained from her daughters who do speak Serbian. My history was obtained from review of hospital records this admission as well as directly speaking with the patient today. Our conversation today is limited because of the language barrier. She is able to answer questions regarding symptoms appropriately. The family reported that she had had decreased appetite recently. No GI fluid losses reported. No fevers or chills. While in the Emergency Department last evening, she developed supraventricular tachycardia at a rate of 123 beats per minute. She was given intravenous adenosine, which converted her rhythm to sinus rhythm. She was subsequently admitted to the telemetry unit. This morning, she has had evidence of recurrent supraventricular tachycardia again with rates in the 120s. Her blood pressure with the SVT last night was 100/73 and 93/57. Her initial blood pressure on presentation to the Emergency Department was 64/50. In the Emergency Department, she was given a bolus of normal saline which subsequently raised her blood pressure. The patient denies any chest pain or dyspnea this morning. No palpitations or lightheadedness. She does complain of abdominal discomfort. No orthopnea. No leg pain. PAST MEDICAL HISTORY: 1. History of colon cancer, treated in [place]. 2. Dyslipidemia. The patient has declined treatment for this. 3. Hypertension. 4. Supraventricular tachycardia. 5. History of Helicobacter infection. 6. History of impaired fasting glucose. 7. GE reflux. 8. History of anemia. SOCIAL HISTORY: The patient is . She has never smoked cigarettes. She does not drink alcohol. She lives with her family. ALLERGIES AND ADVERSE DRUG REACTIONS: None. FAMILY HISTORY: Family history of asthma and nonspecified heart disease. REVIEW OF SYSTEMS: On admission was significant for decreased oral intake. Also, abdominal discomfort. MEDICATIONS: This morning were potassium 20 mEq daily, subQ heparin 5000 units q. 8 hours, normal saline 125 mL per hour, and several p.r.n. medications. PHYSICAL EXAMINATION: GENERAL: At the time of my exam, the patient was lying in her bed. No distress. VITAL SIGNS: This morning with oral temperature 36.4, pulse 64, blood pressure 119/74, pulse oximetry on room air 95%. MOUTH: Moist mucous membranes. NECK: No jugular venous distention. Carotids 2/2 bilaterally. Normal upstroke. No bruits. EYES: Pupils equal and round. Anicteric. Conjunctivae normal. LUNGS: Normal respiratory effort. No rales or wheezes. HEART: Regular rate and rhythm. S1, S2 normal. No S3 or S4. No murmur or rub. ABDOMEN: Mild tenderness. Soft. No palpable mass or organomegaly. Normal bowel sounds. No bruits. EXTREMITIES: No pretibial edema. No cyanosis or clubbing. NEUROLOGIC: The patient is alert. She appears oriented. PSYCHIATRIC: Affect is normal. LABORATORY DATA: Overnight with WBC 6.48, hemoglobin 8.9, hematocrit 27.7, and platelet count 209. INR yesterday evening was 1.1. PTT 27.7. Metabolic profile this morning with sodium 142, potassium 3.8, chloride 111, carbon dioxide 22, BUN 9, creatinine 0.56, random glucose 130. Magnesium 2.1. Troponin I last evening less than 0.015. TSH 0.419. Lipase 195. Albumin 2.5. Total bilirubin 1.5. Direct bilirubin 1.0. AST 79. ALT 59. Free T4 1.56. Alkaline phosphatase 559. ASSESSMENT: 1. Longstanding history of hypertension. Her blood pressure on admission was very low. She was likely taking her carvedilol. The carvedilol with decreased oral intake resulted in low blood pressure. Her blood pressure responded appropriately to administration of normal saline bolus in the Emergency Room last night. 2. History of paroxysmal supraventricular tachycardia. This is longstanding. Evidence of recurrent supraventricular tachycardia on admission January 02 as follows admission last evening. These episodes occurred while she was on carvedilol. 3. Hepatic cancer. It appears that it is metastatic, based on CT scans of her abdomen. Apparently, the biopsy results are still pending. 4. No evidence of heart failure on exam. 5. No anginal symptoms. 6. Initial electrocardiogram last evening showed normal sinus rhythm and prolonged corrected QT interval of 534 milliseconds. Electrocardiogram last she was in the Emergency Department revealed supraventricular tachycardia at the rate of 123 beats per minute. Nonspecific ST and T wave abnormalities. RECOMMENDATIONS: 1. Keep off carvedilol at this time. 2. Start oral diltiazem 60 mg q. hours. Monitor blood pressure on this. 3. Continue intravenous fluids. 4. Management of her hepatic cancer by me the oncology service and the hospitalist service. 5. At this time, no further cardiac workup necessary. Continue to monitor her heart rhythm on telemetry. Thank you for asking us to see this patient in cardiology consultation.
[2017-01-13] MEDS: DILTIAZEM HCL 60 MG TAB PO SCH ×2 (14:00→21:01)
--- NOTE | 2017-01-13 15:36 | Progress Note ---
Subjective Date of Service: Jan 13, 2017. Subjective Pt evaluation today including: conversation w/ patient, conversation w/ family (daughter at bedside translating in Nauruan), physical exam, lab review, review of studies, review of inpatient medication list Tele reviewed. Still intermittent episodes of tachycardia with exertion, last episode around 930 AM. ALso had bradycardic episode down to 45 at 1 PM. Otherwise NSR 60-70s. Patient reports no chest pain , no sob, no palpitations. No abd pain, n/v/d/c, no urinary symptoms. Good appetite. Problem List Medical Problems: (1) Dehydration Status: Acute (2) Hepatic cancer Status: Acute (3) Hypotension Status: Acute (4) SVT (supraventricular tachycardia) Status: Acute (5) SVT (supraventricular tachycardia) Status: Acute Review of Systems All Other Systems: Reviewed and Negative Medications Acetaminophen (Tylenol Tab) 650 mg Q4H PRN PO; Start 01/12/17 at 21:00; Stop 02/11/17 at 20:59 Al Hydrox/Mg Hydrox/Simethicone (Maalox Max Susp) 15 ml Q4H PRN PO; Start 01/12 at 21:00; Stop 02/11/17 at 20:59 Diltiazem HCl (Cardizem Tab) 60 mg TID PO; Start 01/13/17 at 14:00; Stop at 13:59 Heparin Sodium (Porcine) (Heparin Sq 5000 Unit/0.5ml) 5,000 unit Q8H SQ Last administered on 01/13/17t 05:35; Admin Dose 5,000 UNIT; Start 01/13/17 at 06:00; Stop 02/12/17 at 05:59 Ioversol (Optiray 320) 100 ml UD PRN IV; Start 01/12/17 at 18:30; Stop 01/16/17 at 18:29 Magnesium Hydroxide (Milk Of Magnesia Susp) 30 ml Q12H PRN PO; Start 01/12/17 at 21:00; Stop 02/11/17 at 20:59 Ondansetron HCl (Zofran Inj) 4 mg Q6H PRN IV; Start 01/12/17 at 21:00; Stop at 20:59 Polyethylene (Miralax Powder Packet) 17 gm DAILY PRN PO; Start 01/12/17 at 21: 00; Stop 02/11/17 at 20:59 Potassium Chloride (Klor-Con Tab) 20 meq DAILY PO Last administered on 01/13/17t 08:17; Admin Dose 20 MEQ; Start 01/13/17 at 09:00; Stop 02/12/17 at 08:59 Objective Vital Signs Date Time Temp Pulse Resp B/P Pulse Ox O2 Delivery O2 Flow Rate FiO2 01/13/17 13:20 57 112/62 01/13/17 11:23 36.6 73 16 137/88 94 01/13/17 09:55 95 Room Air 01/13/17 07:40 36.4 64 16 119/74 95 01/13/17 04:48 36.7 65 18 99/61 96 Room Air 01/13/17 04:00 Room Air 01/12/17 23:30 36.5 68 16 105/70 96 Room Air 01/12/17 23:26 60 16 106/73 98 Room Air 01/12/17 22:45 63 01/12/17 22:12 118 16 93/57 98 Room Air 01/12/17 21:46 119 16 100/73 98 Room Air 01/12/17 21:24 121 100/76 01/12/17 20:56 120 01/12/17 20:14 64 16 108/71 98 Room Air 01/12/17 19:50 126 18 98 Room Air 01/12/17 19:19 72 16 122/69 98 Room Air 01/12/17 18:06 56 16 64/50 98 Room Air Physical Exam Comments: nad, aox3 eomi perrl s1 s2 rrr, no murmurs appreciated ctab no w/r/r abd soft, nt/nd +BS no cva tend no LE edema cn 2-12 grossly intact without facial drooping Laboratory Results Last 24 Hours Test 01/12/17 18:30 01/12/17 18:33 01/12/17 18:41 01/12/17 19:05 White Blood Count 8.79 K/uL Red Blood Count 4.57 M/uL Hemoglobin 10.6 g/dL Hematocrit 32.7 % Mean Corpuscular Volume 71.6 fL Mean Corpuscular Hemoglobin 23.2 pg Mean Corpuscular Hemoglobin Concent 32.4 g/dl Platelet Count 296 K/uL Mean Platelet Volume 10.1 fL Neutrophils (%) (Auto) 81.0 % Lymphocytes (%) (Auto) 7.3 % Monocytes (%) (Auto) 9.9 % Eosinophils (%) (Auto) 1.1 % Basophils (%) (Auto) 0.5 % Neutrophils # (Auto) 7.12 K/uL Lymphocytes # (Auto) 0.64 K/uL Monocytes # (Auto) 0.87 K/uL Eosinophils # (Auto) 0.10 K/uL Basophils # (Auto) 0.04 K/uL RDW Standard Deviation 48.2 fL RDW Coefficient of Variation 18.4 % Immature Granulocyte % (Auto) 0.2 % Immature Granulocyte # (Auto) 0.02 K/uL Anisocytosis PRESENT Prothrombin Time 11.8 SECONDS Prothromb Time International Ratio 1.1 Activated Partial Thromboplast Time 27.7 SECONDS Partial Thromboplastin Ratio 1.1 Sodium Level 136 mmol/L Potassium Level 4.0 mmol/L Chloride Level 104 mmol/L Carbon Dioxide Level 20 mmol/L Anion Gap 12.0 mmol/L 18.0 mmol/L Blood Urea Nitrogen 11 mg/dl Creatinine 0.93 mg/dl Est Creatinine Clear Calc Drug Dose 57.0 ml/min Estimated GFR () 72.2 Estimated GFR (Non- 62.3 BUN/Creatinine Ratio 11.5 Random Glucose 219 mg/dl Estimated Average Glucose 117 mg/dl Hemoglobin A1c 5.7 % Calcium Level 8.6 mg/dl Magnesium Level 2.3 mg/dl Total Bilirubin 1.5 mg/dl Direct Bilirubin 1.0 mg/dl Aspartate Amino Transf (AST/SGOT) 79 U/L Alanine Aminotransferase (ALT/SGPT) 59 U/L Alkaline Phosphatase 559 U/L Troponin I < 0.015 ng/ml Total Protein 7.7 gm/dl Albumin 2.5 gm/dl Lipase 195 U/L Thyroid Stimulating Hormone (TSH) 0.419 uIu/ml Free Thyroxine 1.56 ng/dl Bedside Lactic Acid Venous 1.73 mmol/L Bedside Hemoglobin 11.2 g/dl Bedside Hematocrit 33 % Bedside Sodium 135 mEq/L Bedside Potassium 4.1 mEq/L Bedside Chloride 103 mEq/L Bedside Total CO2 19 mEq/l Bedside Blood Urea Nitrogen 11 mg/dl Bedside Creatinine 0.8 mg/dl Bedside Glucose (other) 227 mg/dl Bedside Ionized Calcium (Katharina) 1.13 mmol/l Urine Color DK YELLOW Urine Appearance CLEAR Urine pH 7.5 Urine Specific [place] > 1.045 Urine Protein NEG Urine Glucose (UA) NEG Urine Ketones NEG Urine Occult Blood NEG Urine Nitrite NEG Urine Bilirubin NEG Urine Urobilinogen NEG Urine Leukocyte Esterase NEG Test 01/12/17 19:22 01/13/17 02:56 Lactic Acid Level 2.3 mmol/L White Blood Count 6.48 K/uL Red Blood Count 3.76 M/uL Hemoglobin 8.9 g/dL Hematocrit 27.7 % Mean Corpuscular Volume 73.7 fL Mean Corpuscular Hemoglobin 23.7 pg Mean Corpuscular Hemoglobin Concent 32.1 g/dl RDW Standard Deviation 50.0 fL RDW Coefficient of Variation 18.5 % Platelet Count 209 K/uL Mean Platelet Volume 10.4 fL Sodium Level 142 mmol/L Potassium Level 3.8 mmol/L Chloride Level 111 mmol/L Carbon Dioxide Level 22 mmol/L Anion Gap 9.0 mmol/L Blood Urea Nitrogen 9 mg/dl Creatinine 0.56 mg/dl Est Creatinine Clear Calc Drug Dose 96.7 ml/min Estimated GFR () 109.5 Estimated GFR (Non- 94.5 BUN/Creatinine Ratio 15.7 Random Glucose 110 mg/dl Calcium Level 8.1 mg/dl Magnesium Level 2.1 mg/dl CHEST ONE VIEW PORTABLE CLINICAL HISTORY: ABDOMINAL PAIN/GI COMPARISON STUDY: CT scan dated 01/04/2017 FINDINGS: The heart is borderline enlarged. There is indistinctness of the left hemidiaphragm, likely secondary to the hiatal hernia visualized on the recent CT scan. There is no lobar consolidation. There is no significant pleural fluid.[ IMPRESSION: Left basilar opacity, likely secondary to the patient's known hiatal hernia. Electronically signed by: Tommy Crum M.D. 01/12/2017 6:56 PM Dictated Date/Time: 01/12/2017 6:[address] ABD/PELVIS IV CONTRAST ONLY CLINICAL HISTORY: Severe abdominal pain. History of liver mass. Possible acute hemorrhage. COMPARISON STUDY: 12/31/2016 TECHNIQUE: Following the IV administration of 118 mL of [id number], CT scan of the abdomen and pelvis was performed from the lung bases to the proximal femurs. Images are reviewed in the axial, sagittal, and coronal planes. IV contrast was administered without complication. CT DOSE: 436.81 mGy.cm FINDINGS: Lower chest: There are mild basilar atelectatic changes. There is a large hiatal hernia. Liver: There is an 8 cm central hepatic mass, which was described on the prior study. There is intrahepatic biliary ductal dilatation. Since the prior study, a biliary enteric stent has been placed. Gallbladder: The gallbladder is contracted. There is air within the gallbladder. There is a gallstone present. Spleen: Normal in size and attenuation. Pancreas: Unremarkable. Adrenal glands: Unremarkable. Kidneys: There is symmetric renal cortical enhancement. The kidneys are normal in size without hydronephrosis. Bowel: There are no transition zones indicate bowel obstruction. There are multiple ventral hernias. There is small bowel within a periumbilical ventral hernia. This is not currently resulting in obstruction. There is an ascending colon lipoma. Peritoneum: There is no intraperitoneal free air or abdominal ascites. Vasculature: The abdominal aorta is normal in course and caliber. Adenopathy: There is pathologic adenopathy within the cyndy hepatis. Pelvic viscera: There is a possible catheter present within the endometrial cavity Skeletal structures: There is a T12 vertebral body hemangioma IMPRESSION: 1. No evidence of acute hemorrhage 2. Large central hepatic mass consistent with neoplasm. There is secondary ductal dilatation 3. Pathologic adenopathy within the cyndy hepatis 4. Cholelithiasis 5. Interval placement of a biliary enteric stent 6. No evidence of bowel obstruction. No evidence of free air 7. Multiple ventral hernias 8. Possible catheter within the endometrial cavity of the uterus 9. Hiatal hernia Electronically signed by: Tommy Crum M.D. 01/12/2017 7:18 PM Dictated Date/Time: 01/12/2017 7:11 PM Assessment and Plan 1. SVT - now in sinus - off coreg, now on diltiazem - appreciate cardio recs - cont to monitor on tele 2. ?cholangiocarcinoma - s/p bilary stents - stable 3. HTN - cont diltiazem - bp acceptable 4. hypotension - 2/2 SVT - BP now improved with better HR control 5. dvt ppx with hsq
[2017-01-13] MEDS ORDERED: POTASSIUM CHLORIDE 20 MEQ TABCR PO ONE (15:45)
[2017-01-14] VITALS (8 sets, daily range): BP systolic 126–143; BP diastolic 81–92; PULSE 62–73; TEMP 36.6–37.1; O2SAT 92–95
[2017-01-14] MEDS ORDERED: ZOLPIDEM TARTRATE 5 MG TAB PO PRN (01:30)
[2017-01-14] MEDS ORDERED: ZOLPIDEM TARTRATE 5 MG TAB ONE (01:36)
[2017-01-14] MEDS: HEPARIN SOD 5000 UNIT/0.5 ML CARP SQ SCH ×2 (05:45→14:04)
[2017-01-14 06:49] LABS: BUN/CREATININE RATIO 5.4 (10-20); CALCIUM 8.4 mg/dl (8.5-10.1); CREATININE 0.6 mg/dl (0.60-1.20); MAGNESIUM 2.1 mg/dl (1.8-2.4); POTASSIUM 3.6 mmol/L (3.5-5.1)
[2017-01-14 06:53] LABS: BASO % 0.2 %; BASO ABS # 0.02 K/uL (0-0.2); COMPLETE YES; EOS % 2.1 %; HEMATOCRIT 29.5 % (37-47); IG% 0.2 %; LYMPH % 13.8 %; LYMPH ABS # 1.13 K/uL (1.2-3.4); MEAN CELL VOLUME 73.9 fL (80-100); MEAN CORPUSCULAR HEMOGLOBIN 23.6 pg (25-34); MEAN CORPUSCULAR HGB CONC 31.9 g/dl (32-36); MEAN PLATELET VOLUME 10.5 fL (7.4-10.4); MONO % 10.8 %; NEUT % 72.9 %; PLATELET COUNT 251 K/uL (130-400); RED BLOOD COUNT 3.99 M/uL (4.2-5.4); WHITE BLOOD COUNT 8.21 K/uL (4.8-10.8)
[2017-01-14] MEDS: DILTIAZEM HCL 60 MG TAB PO SCH ×2 (08:46→14:01)
[2017-01-14] MEDS: POTASSIUM CHLORIDE 20 MEQ TABCR PO SCH (08:46)
--- NOTE | 2017-01-14 09:51 | Progress Note ---
Subjective Date of Service: Jan 14, 2017. Subjective Tele reviewed in detail. ~1sec pauses. ST episode overnight ~9pm 120s for ~12 seconds, patient ambulating at that time. Otherwise rates 60-70s. No chest pain, no sob, feels well otherwise. No abd pain, no n/v/d/c, no urinary symtpoms. Problem List Medical Problems: (1) Dehydration Status: Acute (2) Hepatic cancer Status: Acute (3) Hypotension Status: Acute (4) SVT (supraventricular tachycardia) Status: Acute (5) SVT (supraventricular tachycardia) Status: Acute Review of Systems All Other Systems: Reviewed and Negative Medications Acetaminophen (Tylenol Tab) 650 mg Q4H PRN PO; Start 01/12/17 at 21:00; Stop 02/11/17 at 20:59 Al Hydrox/Mg Hydrox/Simethicone (Maalox Max Susp) 15 ml Q4H PRN PO; Start 01/12 at 21:00; Stop 02/11/17 at 20:59 Diltiazem HCl (Cardizem Tab) 60 mg TID PO Last administered on 01/14/17 08:46; Admin Dose 60 MG; Start 01/13/17 at 14:00; Stop 02/12/17 at 13:59 Heparin Sodium (Porcine) (Heparin Sq 5000 Unit/0.5ml) 5,000 unit Q8H SQ Last administered on 01/14/17 05:45; Admin Dose 5,000 UNIT; Start 01/13/17 at 06:00; Stop 02/12/17 at 05:59 Ioversol (Optiray 320) 100 ml UD PRN IV; Start 01/12/17 at 18:30; Stop 01/16/17 at 18:29 Magnesium Hydroxide (Milk Of Magnesia Susp) 30 ml Q12H PRN PO; Start 01/12/17 at 21:00; Stop 02/11/17 at 20:59 Ondansetron HCl (Zofran Inj) 4 mg Q6H PRN IV; Start 01/12/17 at 21:00; Stop at 20:59 Polyethylene (Miralax Powder Packet) 17 gm DAILY PRN PO; Start 01/12/17 at 21: 00; Stop 02/11/17 at 20:59 Potassium Chloride (Klor-Con Tab) 20 meq DAILY PO Last administered on 01/14/17t 08:46; Admin Dose 20 MEQ; Start 01/13/17 at 09:00; Stop 02/12/17 at 08:59 Zolpidem Tartrate (Ambien Tab) 5 mg HS PRN PO; Start 01/14/17 at 01:30; Stop 02/13/17 at 01:29 Objective Vital Signs Date Time Temp Pulse Resp B/P Pulse Ox O2 Delivery O2 Flow Rate FiO2 01/14/17 08:00 93 Room Air 01/14/17 07:29 36.7 70 20 143/86 93 01/14/17 05:26 36.6 73 18 130/84 93 Room Air 01/14/17 04:00 Room Air 01/14/17 00:21 37.0 63 18 135/92 92 Room Air 01/14/17 00:00 Room Air 01/13/17 20:59 82 148/83 01/13/17 20:00 96 Room Air 01/13/17 19:46 37.0 72 22 154/81 92 Room Air 01/13/17 16:00 96 Room Air 01/13/17 15:41 36.9 69 18 117/73 96 Room Air 01/13/17 13:20 57 112/62 01/13/17 11:23 36.6 73 16 137/88 94 01/13/17 09:55 95 Room Air Physical Exam Comments: nad, aox3, eomi, perrl s1 s2 rrr ctab no w/r/r abd soft nt/nd +BS no LE edema cn 2-12 grossly intact Laboratory Results Last 24 Hours Test 01/14/17 05:49 White Blood Count 8.21 K/uL Red Blood Count 3.99 M/uL Hemoglobin 9.4 g/dL Hematocrit 29.5 % Mean Corpuscular Volume 73.9 fL Mean Corpuscular Hemoglobin 23.6 pg Mean Corpuscular Hemoglobin Concent 31.9 g/dl Platelet Count 251 K/uL Mean Platelet Volume 10.5 fL Neutrophils (%) (Auto) 72.9 % Lymphocytes (%) (Auto) 13.8 % Monocytes (%) (Auto) 10.8 % Eosinophils (%) (Auto) 2.1 % Basophils (%) (Auto) 0.2 % Neutrophils # (Auto) 5.98 K/uL Lymphocytes # (Auto) 1.13 K/uL Monocytes # (Auto) 0.89 K/uL Eosinophils # (Auto) 0.17 K/uL Basophils # (Auto) 0.02 K/uL RDW Standard Deviation 50.7 fL RDW Coefficient of Variation 18.8 % Immature Granulocyte % (Auto) 0.2 % Immature Granulocyte # (Auto) 0.02 K/uL Sodium Level 141 mmol/L Potassium Level 3.6 mmol/L Chloride Level 109 mmol/L Carbon Dioxide Level 22 mmol/L Anion Gap 10.0 mmol/L Blood Urea Nitrogen 3 mg/dl Creatinine 0.60 mg/dl Est Creatinine Clear Calc Drug Dose 91.3 ml/min Estimated GFR () 107.0 Estimated GFR (Non- 92.4 BUN/Creatinine Ratio 5.4 Random Glucose 81 mg/dl Calcium Level 8.4 mg/dl Magnesium Level 2.1 mg/dl Assessment and Plan 1. SVT - now in sinus - off coreg, now on diltiazem - will need to f/u with cardio as outpatient - may be discharged if ok with cardio 2. ?cholangiocarcinoma - s/p bilary stents - stable 3. HTN - cont diltiazem - bp acceptable 4. hypotension - 2/2 SVT - BP now improved with better HR control 5. dvt ppx with hsq
--- NOTE | 2017-01-14 14:05 | ECHOCARDIOGRAM REPORT ---
*NOTICE TO RECEIVING LIBERTARIAN AGENCY This information is strictly Confidential and protected under [place] law. [place] law prohibits you from making any further disclosure of this information unless further disclosure is expressly permitted by the written consent of the person to whom it pertains or is authorized by law. A general authorization for the release of medical or other information is not sufficient for this purpose. Hospital accepts no responsibility if the information is made available to any other person, INCLUDING THE PATIENT. Interpretation Summary * Name: AXEL BLANTON I Study Date: 01/14/2017 09:56 AM BP: 143/86 mmHg * Patient Location: [facility]\S\N284\S\1 HR: 83 * : 1945 (M/d/yyyy) Gender: Female Height: 66 in * Age: 71 yrs Ethnicity: [place] Weight: 165 lb * Ordering Physician: Pj Keller * Referring Physician: Self, Referred * Performed By: Mona Dodd RCS * * Reason For Study: SVT / HYPOTENSION * BSA: 1.8 m2 * -- Conclusions -- * The left ventricle is normal in size. * Left ventricular systolic function is normal. * Ejection Fraction = 60-65%. * There is mild concentric left ventricular hypertrophy. * The left ventricular wall motion is normal. * Trace pulmonic valvular regurgitation. * PA end diastolic velocity of 1 m/s is consistent with normal PA end diastolic pressure. * There is mild tricuspid regurgitation. * Right ventricular systolic pressure is elevated at 30-40mmHg. Procedure Details * A complete two-dimensional transthoracic echocardiogram was performed (2D, M-mode, Doppler and color flow Doppler). Left Ventricle * The left ventricle is normal in size. * There is mild concentric left ventricular hypertrophy. * Left ventricular systolic function is normal. * Ejection Fraction = 60-65%. * The left ventricular wall motion is normal. Right Ventricle * The right ventricle is normal in size and function. * The right ventricular systolic function is normal. Atria * The left atrial size is normal. * Right atrial size is normal. * The interatrial septum is intact with no evidence for an atrial septal defect. Mitral Valve * The mitral valve is normal in structure and function. * There is trace mitral regurgitation. Tricuspid Valve * The tricuspid valve is normal in structure and function. * There is mild tricuspid regurgitation. * Right ventricular systolic pressure is elevated at 30-40mmHg. Aortic Valve * The aortic valve is normal in structure and function. * No aortic regurgitation is present. Pulmonic Valve * The pulmonary valve is inadequately visualized, but the Doppler data is adequate for interpretation. * Trace pulmonic valvular regurgitation. * PA end diastolic velocity of 1 m/s is consistent with normal PA end diastolic pressure. Great Vessels * The aortic root is normal size. * Aortic arch of normal dimension. * No obvious dissection could be visualized. * Mild pulmonary artery dilation. Pericardium/Pleural * There is no pericardial effusion. Great Vessels * Normal inferior vena cava diameter and respiratory variation suggests normal central venous pressure. MMode 2D Measurements and Calculations IVSd 1.3 cm IVSs 1.8 cm LVIDd 4.3 cm LVIDs 2.8 cm LVPWd 1.3 cm LVPWs 1.5 cm IVS/LVPW 1.0 FS 33.9 % EDV(Teich) 81.1 ml ESV(Teich) 29.9 ml EF(Teich) 63.2 % EDV(cubed) 77.2 ml ESV(cubed) 22.3 ml EF(cubed) 71.2 % % IVS thick 42.3 % % LVPW thick 21.6 % LV mass(C)d 196.9 grams LV mass(C)dI 106.8 grams/m\S\2 LV mass(C)s 176.3 grams LV mass(C)sI 95.6 grams/m\S\2 SV(Teich) 51.3 ml SI(Teich) 27.8 ml/m\S\2 SV(cubed) 54.9 ml SI(cubed) 29.8 ml/m\S\2 Ao root diam 3.6 cm Ao root area 10.4 cm\S\2 ACS 2.0 cm LA dimension 3.0 cm LA/Ao 0.83 LVOT diam 1.9 cm LVOT area 2.8 cm\S\2 LVAd ap4 31.5 cm\S\2 LVLd ap4 7.6 cm EDV(MOD-sp4) 105.7 ml EDV(sp4-el) 111.8 ml LVAs ap4 17.8 cm\S\2 LVLs ap4 6.1 cm ESV(MOD-sp4) 44.4 ml ESV(sp4-el) 44.4 ml EF(MOD-sp4) 57.9 % EF(sp4-el) 60.2 % LVAd ap2 25.8 cm\S\2 LVLd ap2 7.1 cm EDV(MOD-sp2) 79.2 ml EDV(sp2-el) 80.2 ml LVAs ap2 12.3 cm\S\2 LVLs ap2 4.9 cm ESV(MOD-sp2) 25.5 ml ESV(sp2-el) 26.1 ml EF(MOD-sp2) 67.8 % EF(sp2-el) 67.5 % LVLd %diff -7.08 % EDV(MOD-bp) 94.8 ml LVLs %diff -23.52 % ESV(MOD-bp) 37.1 ml EF(MOD-bp) 60.9 % SV(MOD-sp4) 61.2 ml SI(MOD-sp4) 33.2 ml/m\S\2 SV(MOD-sp2) 53.7 ml SI(MOD-sp2) 29.1 ml/m\S\2 SV(MOD-bp) 57.7 ml SI(MOD-bp) 31.3 ml/m\S\2 SV(sp4-el) 67.3 ml SI(sp4-el) 36.5 ml/m\S\2 SV(sp2-el) 54.1 ml SI(sp2-el) 29.4 ml/m\S\2 Doppler Measurements and Calculations MV E max dheeraj 92.7 cm/sec MV A max dheeraj 78.2 cm/sec MV E/A 1.2 MV P1/2t max dheeraj 100.9 cm/sec MV P1/2t 109.4 msec MVA(P1/2t) 2.0 cm\S\2 MV dec slope 270.2 cm/sec\S\2 MV dec time 0.25 sec Ao V2 max 201.6 cm/sec Ao max PG 16.3 mmHg Ao max PG (full) 9.7 mmHg KRISSY(V,A) 1.7 cm\S\2 KRISSY(V,D) 1.7 cm\S\2 LV V1 max PG 6.5 mmHg LV V1 max 127.8 cm/sec MR max dheeraj 508.6 cm/sec MR max PG 103.5 mmHg PA V2 max 135.4 cm/sec PA max PG 7.3 mmHg PI max dheeraj 184.8 cm/sec PI max PG 13.7 mmHg PI dec slope 169.5 cm/sec\S\2 PI P1/2t 319.3 msec TR max dheeraj 259.2 cm/sec
[2017-01-14] MEDS ORDERED: CRD60 PO (15:41)
--- NOTE | 2017-01-14 15:42 | Discharge Instructions ---
Discharge Instructions Admission Reason for Admission: Dehydration, Svt Discharge Discharge Diagnosis / Problem: stable for home Discharge Goals Goal(s): Improve function, Improve disease control Activity Recommendations Activity Limitations: resume your previous activity . Current Hospital Diet Patient's current hospital diet: Regular Diet Discharge Diet Recommended Diet: Regular Diet Pending Studies Studies pending at discharge: no Laboratory Results Hemoglobin A1c Test 01/12/17 18:30 Range/Units Estimated Average Glucose 117 mg/dl Hemoglobin A1c 5.7 H 4.5-5.6 % Medical Emergencies . Who to Call and When: Medical Emergencies: If at any time you feel your situation is an emergency, please call 911 immediately. . Non-Emergent Contact Non-Emergency issues call your: Primary Care Provider, Acid Loader . . "Provider Documentation" section prepared by Tiara Arrington. VTE Core Measure Inpt VTE Proph given/why not?: Unfractionated heparin SQ
--- NOTE | 2017-01-14 16:09 | Discharge Summary ---
Discharge Summary Date of Service Jan 14, 2017. Discharge Summary Admission Date: Jan 12, 2017 at 20:58 Discharge Date: Jan 14, 2017 Discharge Disposition: Home Principal Diagnosis: svt Procedures: 2DE Interpretation Summary * Name: AXEL BLANTON I Study Date: 01/14/2017 09:56 AM BP: 143/86 mmHg * Patient Location: [facility]\S\N284\S\1 HR: 83 * : 1945 (M/d/yyyy) Gender: Female Height: 66 in * Age: 71 yrs Ethnicity: [place] Weight: 165 lb * Ordering Physician: Pj Keller * Referring Physician: Self, Referred * Performed By: Mona Dodd RCS * * Reason For Study: SVT / HYPOTENSION * BSA: 1.8 m2 * -- Conclusions -- * The left ventricle is normal in size. * Left ventricular systolic function is normal. * Ejection Fraction = 60-65%. * There is mild concentric left ventricular hypertrophy. * The left ventricular wall motion is normal. * Trace pulmonic valvular regurgitation. * PA end diastolic velocity of 1 m/s is consistent with normal PA end diastolic pressure. * There is mild tricuspid regurgitation. * Right ventricular systolic pressure is elevated at 30-40mmHg. Procedure Details Medication Reconciliation New Medications: Diltiazem HCl (Diltiazem HCl) 60 Mg Tab 60 MG PO TID for 30 Days, #90 TAB 2 Refills Continued Medications: Potassium Chloride Microencaps (Potassium Chloride Er) 20 Meq Tab 20 MEQ PO DAILY, TAB Discontinued Medications: Carvedilol (Coreg) 25 Mg Tab 50 MG PO BID, TAB Hospital Course 71 y/o F Hx HTN, SVTs, recent diagnosis of a liver mass (likely cholangiocarcinoma) - presents with palpitations, weakness, fatigue. Pt presented with identical complaints prior to liver mass diagnosis 12/31. She had a SBP of 85 and an HR of >130 while in the ER and was treated with Adenosine resulting temporarily in reversion to a sinus rhythm and improvement of her blood pressure. She received a fluid bolus whihc stabilized her pressure although she eventually reverted back to SVT with a HR of ~120. Throughout she has denied any CP, SOB, N/V or diaphoresis. Her daughters had apparently checked her BP at home and noted that it had been low throughout the day. They also state that she has had generally poor PO intake since her recent D/C from the hospital. She required 2 common bile duct stents following diagnosis of a liver mass due ductal involvement.. Patient was placed on diltiazem with good outcome. She had one episode of SVT while ambulating last night but very transient and asymptomatic. Discussed with cardiology, ok to go home with follow-up outpatient with cardio. 1. SVT - now in sinus - off coreg, now on diltiazem - will need to f/u with cardio as outpatient 2. ?cholangiocarcinoma - s/p bilary stents - stable 3. HTN - cont diltiazem - bp acceptable 4. hypotension - 2/2 SVT - BP now improved with better HR control 5. dvt ppx with hsq Total Time Spent: Less than 30 minutes This includes examination of the patient, discharge planning, medication reconciliation, and communication with other providers. Discharge Instructions Please refer to the electronic Patient Visit Report (Discharge Instructions) for additional information. Additional Copies To Agata Friend M.D.
[2017-02-26] MEDS ORDERED: ZFR/8 PO (12:50)
[2017-02-26] MEDS ORDERED: DILT120C68 PO (12:50)
[2017-02-26] MEDS ORDERED: PRED20TA PO (12:50)
[2017-02-26] MEDS ORDERED: PROC1TAB5 PO (12:50)
[2017-02-26] MEDS ORDERED: OXYC1TAB3 PO (12:50)
== END 2017-01-14 17:04 | disposition home or self-care (01) | DRG 309 ==
LOC: ENRESERVTM → ENRESERVDT → C.EDB 18:02 → C.MED 20:58
PROVIDERS: ADMIT Internal Medicine; ATTEND Internal Medicine
DX: I47.1 Supraventricular tachycardia (principal); C22.1 Intrahepatic bile duct carcinoma; I10 Essential (primary) hypertension; I95.9 Hypotension, unspecified; E11.9 Type 2 diabetes mellitus without complications; E78.5 Hyperlipidemia, unspecified; Z85.038 Personal history of other malignant neoplasm of large intestine; Z82.5 Family history of asthma and other chronic lower respiratory diseases

== ENCOUNTER 2017-03-05 05:51 | Day surgery (SDC) | payer OTHER ==
[2017-02-26 12:32] VITALS: BMI 24.0
--- NOTE | 2017-02-26 13:05 | PAT Medication Instructions ---
Service Date Feb 26, 2017. Current Home Medication List Diltiazem Hcl Ext Rel (Tiazac), 60 MG PO TID Ondansetron (Ondansetron HCl), 8 MG PO PRN Oxycodone Immediate Rel Tab (Roxicodone Ir), 5 MG PO Q4H PRN for Severe Pain Potassium Chloride Microencaps (Potassium Chloride Er), 20 MEQ PO DAILY Prednisone (Prednisone), 20 MG PO DAILY Prochlorperazine Maleate (Compazine), 10 MG PO Q6H Medication Instructions For Your Scheduled Surgery - Hold the following medications the morning of surgery: Potassium Chloride Microencaps (Potassium Chloride Er), 20 MEQ PO DAILY - Take the following medications the morning of surgery with a sip of water: Diltiazem Hcl Ext Rel (Tiazac), 60 MG PO TID Ondansetron (Ondansetron HCl), 8 MG PO PRN Prochlorperazine Maleate (Compazine), 10 MG PO Q6H Prednisone (Prednisone), 20 MG PO DAILY Oxycodone Immediate Rel Tab (Roxicodone Ir), 5 MG PO Q4H PRN for Severe Pain ( okay to take up to 4 hours prior to surgery if needed) - Take the following medications as scheduled the night before surgery: Ondansetron (Ondansetron HCl), 8 MG PO PRN Prochlorperazine Maleate (Compazine), 10 MG PO Q6H If you have any questions please call us at [phone] (Marisela Tijerina PA-C) or [phone] or [phone]
[2017-02-26 13:33] LABS: BASO % 0.2 %; BASO ABS # 0.03 K/uL (0-0.2); COMPLETE YES; EOS % 0.2 %; HEMATOCRIT 31.4 % (37-47); IG% 0.2 %; LYMPH ABS # 0.42 K/uL (1.2-3.4); MEAN CELL VOLUME 75.5 fL (80-100); MEAN CORPUSCULAR HEMOGLOBIN 25.5 pg (25-34); MEAN CORPUSCULAR HGB CONC 33.8 g/dl (32-36); MEAN PLATELET VOLUME 9.1 fL (7.4-10.4); MONO % 8.6 %; NEUT % 87.8 %; PLATELET COUNT 339 K/uL (130-400); RED BLOOD COUNT 4.16 M/uL (4.2-5.4); WHITE BLOOD COUNT 14.05 K/uL (4.8-10.8)
[2017-02-26 14:19] LABS: BUN/CREATININE RATIO 7.8 (10-20); CALCIUM 9.2 mg/dl (8.5-10.1); CREATININE 0.63 mg/dl (0.60-1.20); POTASSIUM 3.4 mmol/L (3.5-5.1)
[~2017-03-05] VITALS: Ht 167.6 cm; Wt 68.4 kg
[~2017-03-05 05:51] MED LIST changes: +DILT120C68 PO; +OXYC1TAB3 PO; +PRED20TA PO; +PROC1TAB5 PO; +ZFR/8 PO
[2017-03-05] MEDS ORDERED: LACTATED RINGER'S 1000ML 1,000 ML IV SCH (06:00)
[2017-03-05 06:21] VITALS: BP 122/83; PULSE 110; TEMP 36.5; O2SAT 93; Ht 167.6 cm; Wt 68.4 kg
[2017-03-05] MEDS ORDERED: ROCURONIUM BROMIDE 10 MG/ML 5 ML VIAL ONE (06:38)
[2017-03-05] MEDS ORDERED: ONDANSETRON INJ 2 MG/ML 2 ML VIAL ONE (06:38)
[2017-03-05] MEDS ORDERED: LIDOCAINE HCL 2% 2 ML VIAL (20MG/ML) ONE (06:38)
[2017-03-05] MEDS ORDERED: FENTANYL CITRATE INJ 50 MCG/1 ML 2 ML VIAL ONE (06:38)
[2017-03-05] MEDS ORDERED: PROPOFOL IV EMULSION 10 MG/ML 20 ML VIAL IV ONE (06:38)
[2017-03-05] MEDS ORDERED: MEPERIDINE HCL 25 MG/ML CARP IV PRN (07:15)
[2017-03-05] MEDS ORDERED: ONDANSETRON INJ 2 MG/ML 2 ML VIAL IV PRN (07:15)
[2017-03-05] MEDS ORDERED: FENTANYL CITRATE INJ 50 MCG/1 ML 2 ML VIAL IV PRN (07:15)
[2017-03-05] MEDS ORDERED: NALOXONE HCL 0.4 MG/1 ML VIAL/CARP IV PRN (07:15)
[2017-03-05] MEDS ORDERED: PHENYLEPHRINE 100MCG/ML 5ML SYR IV PRN (07:15)
[2017-03-05] MEDS ORDERED: FLUMAZENIL 0.1 MG/1 ML 10 ML VIAL IV PRN (07:15)
[2017-03-05] MEDS ORDERED: EpHEDrine SULFATE INJ 50 MG/ML AMP IV PRN (07:15)
[2017-03-05] MEDS ORDERED: HYDROmorphone INJ 2 MG/ML SYR/VIAL IV PRN (07:15)
[2017-03-05] MEDS ORDERED: LABETALOL HCL IV 5 MG/ML 20ML IV PRN (07:15)
[2017-03-05] MEDS ORDERED: ATROPINE SULFATE 0.1 MG/ML 5ML SYR IV PRN (07:15)
--- NOTE | 2017-03-05 07:55 | Endo History and Physical ---
History & Physical Date of Service: Mar 05, 2017. Chief Complaint: Referring Physician: History of Present Illness ERCP with malignant obstructive jaundice for stent change Past Surgical History Hx Cardiac Surgery: No Hx Abdominal Surgery: Yes (BOWEL SURG FOR OBSTRUCTION) Hx Post-Op Nausea and Vomiting: No Hx Cancer Surgery: No Hx Thoracic Surgery: No Hx Orthopedic: No Hx Urinary Tract Surgery: No Social History Smoking Status: Never Smoker Hx Substance Use: No Hx Alcohol Use: No Allergies Coded Allergies: No Known Allergies (Verified , 03/05/17) Current Medications Reported Home Medications Medications Dose Route/Sig Max Daily Dose Days Date Category Roxicodone Ir (Oxycodone HCl) 5 Mg Tab 5 Mg PO Q4H PRN 02/26/17 Reported Compazine (Prochlorperazine Maleate) 10 Mg Tab 10 Mg PO Q6H 02/26/17 Reported Prednisone 20 Mg Tab 20 Mg PO DAILY 02/26/17 Reported Ondansetron HCl (Ondansetron) 8 Mg Tab 8 Mg PO PRN 02/26/17 Reported Tiazac (Diltiazem HCl) 120 Mg Capcr 60 Mg PO TID 02/26/17 Reported Potassium Chloride Er (Potassium Chloride Microencaps) 20 Meq Tab 20 Meq PO DAILY 01/12/17 Reported Vital Signs Weight (Kilograms): 68.40 Height (Feet): 5 Height (Inches): 6 Date Time Temp Pulse Resp B/P Pulse Ox O2 Delivery O2 Flow Rate FiO2 03/05/17 06:21 36.5 110 18 122/83 93 Room Air Physical Exam AAO x3 Nl s1s2 Lungs CTA Abd soft NT/ND + BS - CCE Assessment and Plan ERCP for stent change consent obtained through tablet taxation consultant fatuma
[2017-03-05] MEDS ORDERED: SODIUM CHLORIDE 0.9% 500ML 500 ML IV ONE (08:00)
[2017-03-05] MEDS ORDERED: CIPROFLOXACIN 400MG / 200ML D5W ONE (08:35)
[2017-03-05] MEDS ORDERED: PHENYLEPHRINE 100MCG/ML 5ML SYR ONE (09:20)
[2017-03-05] MEDS ORDERED: PHENYLEPHRINE HCL INJ 10 MG/ML VIAL ONE (09:20)
--- NOTE | 2017-03-05 10:07 | Discharge Instructions ---
Endoscopy Patient Instructions Date / Procedure(s) Performed Mar 05, 2017. Allergy Information Coded Allergies: No Known Allergies (Verified , 03/05/17) Discharge Date / Findings Mar 05, 2017. Stent replaced will need 5 days Cipro Medication Instructions Restart Stopped Medication(s): Reported Home Medications Medications Dose Route/Sig Max Daily Dose Days Date Category Roxicodone Ir (Oxycodone HCl) 5 Mg Tab 5 Mg PO Q4H PRN 02/26/17 Reported Compazine (Prochlorperazine Maleate) 10 Mg Tab 10 Mg PO Q6H 02/26/17 Reported Prednisone 20 Mg Tab 20 Mg PO DAILY 02/26/17 Reported Ondansetron HCl (Ondansetron) 8 Mg Tab 8 Mg PO PRN 02/26/17 Reported Tiazac (Diltiazem HCl) 120 Mg Capcr 60 Mg PO TID 02/26/17 Reported Potassium Chloride Er (Potassium Chloride Microencaps) 20 Meq Tab 20 Meq PO DAILY 01/12/17 Reported Reported Home Medications Medications Dose Route/Sig Max Daily Dose Days Date Category Roxicodone Ir (Oxycodone HCl) 5 Mg Tab 5 Mg PO Q4H PRN 02/26/17 Reported Compazine (Prochlorperazine Maleate) 10 Mg Tab 10 Mg PO Q6H 02/26/17 Reported Prednisone 20 Mg Tab 20 Mg PO DAILY 02/26/17 Reported Ondansetron HCl (Ondansetron) 8 Mg Tab 8 Mg PO PRN 02/26/17 Reported Tiazac (Diltiazem HCl) 120 Mg Capcr 60 Mg PO TID 02/26/17 Reported Potassium Chloride Er (Potassium Chloride Microencaps) 20 Meq Tab 20 Meq PO DAILY 01/12/17 Reported Cipro 500mg BID x 5 days Provider Instructions Activity Restrictions - No exercising or heavy lifting for 24 hours. - Do not drink alcohol the day of the procedure. - Do not drive a car or operate machinery until the day after the procedure. - Do not make any important decisions or sign important papers in 24 hours after the procedure. Following Day: - Return to full activity which may include returning to work/school. Diet Start your diet with liquids and light foods (jello, soup, juice, toast). Then eat your usual diet if not nauseated. Treatment For Common After Affects For mild abdominal pain, bloating, or excessive gas: - Rest - Eat lightly - Lie on right side Follow-Up Information Follow-up with as scheduled Anesthesia Information What You Should Know You have had a procedure that required some medicine to reduce anxiety and discomfort. This treatment is called moderate sedation. After receiving the treatment, you may be sleepy, but you will be able to breathe on your own. The effects of the treatment may last for several hours. Follow these instructions along with Activity/Diet recommendations noted above: * Do NOT do anything where dizziness or clumsiness would be dangerous. * Rest quietly at home today, then you can be up and about tomorrow. * Have a responsible person stay with you the rest of today. * You may have had an I.V. today. If so, you may take the dressing off later today. Recommendations Call your doctor if: * Trouble breathing * Continuous vomiting for more than 24 hours * Temperature above 101 degrees * Severe abdominal pain or bloating * Pain not relieved by pain medicine ordered * There is increased drainage or redness from any incision * A large amount of rectal bleeding greater than 2-3 tablespoons. (If you had a polyp/s removed or have hemorrhoids, a small amount of blood - from the rectum is to be expected.) * You have any unanswered questions or concerns. IN THE EVENT OF A SERIOUS EMERGENCY, GO TO THE NEAREST EMERGENCY ROOM Your discharge instructions were prepared by provider Ramírez Frederick. Patient Instructions Signature Page Lor Vizcarra Patient (or Guardian) Signature/Date: I have read and understand the instructions given to me by my caregivers. Caregiver/RN/Doctor Signature/Date: The above-named patient and/or guardian has received patient instructions on this date. + Original Patient Signature Page (only) stays with chart. Please make copy for patient.
--- NOTE | 2017-03-05 10:29 | GI REPORT ---
Procedure Date: 03/05/2017 7:40 AM Procedure: ERCP Indications: Stent change. 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 Medicines: General Anesthesia Complications: No immediate complications. Estimated blood loss: Minimal. Estimated Blood Loss: Estimated blood loss was minimal. Procedure: Pre-Anesthesia Assessment: - Prior to the procedure, a History and Physical was performed, and patient medications and allergies were reviewed. The patient's tolerance of previous anesthesia was also reviewed. The risks and benefits of the procedure and the sedation options and risks were discussed with the patient. All questions were answered, and informed consent was obtained. Prior Anticoagulants: The patient has taken no previous anticoagulant or antiplatelet agents. ASA Grade Assessment: II - A patient with mild systemic disease. After reviewing the risks and benefits, the patient was deemed in satisfactory condition to undergo the procedure. After obtaining informed consent, the scope was passed under direct vision. Throughout the procedure, the patient's blood pressure, pulse, and oxygen saturations were monitored continuously. The Scope was introduced through the mouth, and advanced to the duodenum and used to inject contrast into the bile duct. The patient tolerated the procedure well. The ERCP was extremely difficult due to challenging cannulation because of abnormal anatomy. Successful completion of the procedure was aided by \F\{skip}\F\. Findings: A biliary stent was visible on the improvement auditor film. Two stents were removed from the biliary tree using a rat-toothed forceps and snare.One of these had advanced into the duct and was retrieved by a rat-tooth forceps. A straight 0.035 inch Tracer Metro Direct wire was passed into the biliary tree. The short-nosed traction sphincterotome was passed over the guidewire and the bile duct was then cannulated. Contrast was injected. I personally interpreted the bile duct images. Ductal flow of contrast was adequate. Image quality was adequate. Contrast extended to the main bile duct. The hepatic duct bifurcation contained a single localized stenosis. A straight 0.035 inch Tracer Metro Direct wire was passed into the biliary tree. One 7 Fr by 10 cm temporary stent with a single external flap and a single internal flap was placed 9 cm into the common bile duct. Bile flowed through the stent. The stent was in good position. Despite several attempts to access the left biliary system with a variety of devices, this territory could not be traversed. Initial attempts with 10 Fr -15 cm and 10 Fr-12 cm would not adequately advance. Ultimately a [id number] stent was placed into the right system as described above. No samples taken. Stents removed were inspected and were intact. Impression: - Two stents were removed from the biliary tree. 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 The stricture was malignant appearing. - One temporary stent was placed into the common bile duct. Recommendation: - Discharge patient to home (ambulatory). - Patient has a contact number available for emergencies. The signs and symptoms of potential delayed complications were discussed with the patient. Return to normal activities tomorrow. Written discharge instructions were provided to the patient. - Advance diet as tolerated. - Cipro (ciprofloxacin) 500 mg PO BID for 5 days. - Repeat ERCP in 6 weeks to exchange stent. - Followup stent placement will be arranged for [facility] given complexity. This may require interventional radiology which is not available in this area. Pt/family continues to decline CTX/XRT. Biliary drainage for palliative purposes. MD Ramírez Markham MD 03/05/2017 10:27:35 AM This report has been signed electronically. Note Initiated On: 03/05/2017 7:40 AM I attest to the content of the Intraoperative Record and orders documented therein, exceptions below
--- NOTE | 2017-03-05 10:33 | Anesthesiology Progress Note ---
Anesthesia Post Op Note Date & Time Mar 05, 2017 at 10:32 Vital Signs Pain Intensity: 0 Vital Signs Past 12 Hours Date Time Temp Pulse Resp B/P Pulse Ox O2 Delivery O2 Flow Rate FiO2 03/05/17 10:25 91 19 117/82 97 Mask 10 03/05/17 10:15 92 23 118/83 97 Mask 10 03/05/17 10:09 36.5 98 14 122/82 98 Mask 10 03/05/17 06:21 36.5 110 18 122/83 93 Room Air Notes Mental Status: alert / awake / arousable, participated in evaluation Pt Amnestic to Procedure: Yes Nausea / Vomiting: adequately controlled Pain: adequately controlled Airway Patency, RR, SpO2: stable & adequate BP & HR: stable & adequate Hydration State: stable & adequate Anesthetic Complications: no major complications apparent
--- NOTE | 2017-03-05 10:36 | DIAGNOSTIC IMAGING REPORT ---
ERCP BILIARY DUCTAL CLINICAL HISTORY: ERCP IN OR 03/05/17 COMPARISON STUDY: Abdomen and pelvis CT 01/12/2017. FLUOROSCOPY TIME: 1106 seconds. 4 images submitted. FINDINGS: The endoscope is seen at the second portion of the duodenum. The indwelling common bile duct stents were removed. Contrast was injected into the distended common bile duct. A balloon sweep was performed. This is followed by replacement of a common bile duct stent which appears to be in good position. IMPRESSION: Fluoroscopy provided for replacement of the common bile duct stent. Electronically signed by: Jose Alberto Jackson M.D. 03/05/2017 10:34 AM Dictated Date/Time: 03/05/2017 10:32 AM
[2017-03-05 10:55] VITALS: BP 117/75; PULSE 88; TEMP 36.6; O2SAT 94
[2017-03-05 11:24] VITALS: BP 100/77; PULSE 87; TEMP 36.6; O2SAT 91
[2017-03-05 11:56] VITALS: BP 92/72; PULSE 89; TEMP 36.5; O2SAT 93
== END 2017-03-05 12:15 | disposition home or self-care (01) ==
LOC: C.ACU 05:51
PROVIDERS: ATTEND Internal Medicine Gastroenterology
DX: Z46.89 Encounter for fitting and adjustment of other specified devices (principal); K83.1 Obstruction of bile duct; I10 Essential (primary) hypertension; Z98.890 Other specified postprocedural states; Z68.24 Body mass index [BMI] 24.0-24.9, adult; E11.9 Type 2 diabetes mellitus without complications; Z85.9 Personal history of malignant neoplasm, unspecified

== ENCOUNTER 2017-03-09 13:27 | Emergency (ER) | payer OTHER ==
[2017-03-09] MEDS ORDERED: CPR/500 PO (14:00)
[2017-03-09] MEDS ORDERED: IBUP-1050 PO (14:01)
[2017-03-09] MEDS ORDERED: SODIUM CHLORIDE 0.9% 500ML 500 ML IV STA (14:20)
[2017-03-09 14:42] LABS: BASO % 0.1 %; BASO ABS # 0.02 K/uL (0-0.2); COMPLETE YES; EOS % 0.1 %; HEMATOCRIT 30.6 % (37-47); IG% 0.5 %; LYMPH % 7.8 %; MEAN CELL VOLUME 75.4 fL (80-100); MEAN CORPUSCULAR HEMOGLOBIN 25.1 pg (25-34); MEAN CORPUSCULAR HGB CONC 33.3 g/dl (32-36); MEAN PLATELET VOLUME 9.2 fL (7.4-10.4); MONO % 5.4 %; NEUT % 86.1 %; PLATELET COUNT 294 K/uL (130-400); RED BLOOD COUNT 4.06 M/uL (4.2-5.4); WHITE BLOOD COUNT 14.15 K/uL (4.8-10.8)
[2017-03-09 14:45] LABS: ISTAT CREATININE 0.5 mg/dl (0.6-1.3); ISTAT HEMOGLOBIN 11.2 g/dl (12.0-16.0); ISTAT IONIZED CALCIUM 1.11 mmol/l (1.12-1.32)
[2017-03-09 14:49] LABS: INR 1.2 (0.9-1.1); PARTIAL THROMBOPLASTIN RATIO 1.1
--- NOTE | 2017-03-09 14:51 | EMERGENCY ROOM VISIT NOTE ---
History First contact with patient: 14:01 Chief Complaint: ABDOMINAL PAIN Stated Complaint: WEAKNESS,YELLOW FACE Nursing Triage Summary: Patient had recent surgery and had stent placed per daughter patient is more jaundiced today, denies any confusion or shortness of breath also denies any nausea. History of Present Illness The patient is a 72 year old female with past medical history significant for cholangiocarcinoma, SVT, hypertension, who presents to the Emergency Room with complaints of abdominal pain, jaundice, and generalized weakness. Patient has had previous biliary stents placed secondary to large liver mass, most recently had the stents changed on 03/05/[address] Frederick. Patient states that she has had progressively worsening pain since the procedure, and her daughters have noted increased yellowing of her skin. Patient also notes itching and dry skin. Patient is not currently receiving any chemotherapy or radiation treatment. Patient denies fevers, chills, chest pain, shortness of breath, dizziness or syncope, nausea, vomiting, diarrhea, constipation, urinary symptoms. Review of Systems GENERAL: Denies fevers, chills, weight loss. + Weakness/fatigue. HEENT: Denies dizziness, visual problems, hearing loss, tinnitus. Denies difficulty swallowing or oral lesions. PULMONARY: Denies cough, shortness of breath, sputum production or hemoptysis. CARDIOVASCULAR: Denies chest pain, palpitations, dyspnea on exertion, orthopnea. + peripheral edema. GASTROINTESTINAL: + abdominal pain. Denies diarrhea, constipation, nausea, vomiting. GENITOURINARY: Denies dysuria, frequency, urgency or nocturia. NEUROLOGIC: Denies history of epilepsy, CVA, TIA or chronic headaches. MUSCULOSKELETAL: Denies history of joint tenderness/swelling. SKIN: Denies rashes or lesions. + itching, + jaundice PSYCHIATRIC: Denies history of depression or mental illness. ENDOCRINE: Denies history of diabetes, thyroid disorders, abnormal hair growth or sexual dysfunction. Past Medical/Surgical History Medical Problems: (1) Hypertension (2) Liver lesion, right lobe (3) Supraventricular tachycardia Family History Patient reports no known family medical history. Social History Smoking Status: Never Smoker Alcohol Use: none Drug Use: none Marital Status: Occupation Status: retired Current/Historical Medications Scheduled Ciprofloxacin (Ciprofloxacin HCl), 500 TAB PO BID Diltiazem Hcl Ext Rel (Tiazac), 60 MG PO TID Ibuprofen (Advil), 200 MG PO DAILY Scheduled PRN Oxycodone Immediate Rel Tab (Roxicodone Ir), 5 MG PO Q4H PRN for Severe Pain Allergies Coded Allergies: No Known Allergies (Verified , 03/09/17) Physical Exam Vital Signs Date Time Temp Pulse Resp B/P Pulse Ox O2 Delivery O2 Flow Rate FiO2 03/09/17 19:17 98 26 03/09/17 19:12 100 27 03/09/17 19:07 100 26 03/09/17 19:02 97 22 03/09/17 19:00 119/84 96 Nasal Cannula 2.0 03/09/17 18:57 97 28 03/09/17 18:52 103 28 03/09/17 18:47 102 26 03/09/17 18:43 113/83 03/09/17 18:42 101 34 03/09/17 18:37 99 24 03/09/17 18:32 104 28 03/09/17 18:02 95 26 03/09/17 17:32 103 26 03/09/17 17:02 100 25 03/09/17 16:40 79 113/81 95 Nasal Cannula 3.0 03/09/17 16:34 113/81 03/09/17 15:27 93 03/09/17 15:27 89 29 94 03/09/17 15:17 97 20 115/79 92 Nasal Cannula 3.0 03/09/17 15:15 115/79 03/09/17 13:34 36.4 120 20 114/71 95 Room Air Physical Exam VITAL SIGNS: Afebrile, tachycardic, normotensive, normal oxygen saturation. CONSTITUTIONAL: Alert, no acute distress. Moderately dehydrated. Alert and oriented X 4 with normal affect. HEENT: Normocephalic, atraumatic. Pupils equal, round and reactive to light, EOMI. Icteric sclera bilaterally. NECK: Supple, full active range of motion without discomfort. RESPIRATORY: Clear to auscultation bilaterally with no wheezing, crackles, rhonchi or stridor. Equal expansion bilaterally. CARDIOVASCULAR: Tachycardic. Regular rhythm with no murmurs, rubs or gallops. Normal peripheral perfusion with 2+ pulses all four extremities. 1+ nonpitting edema bilateral feet/ankles. GASTROINTESTINAL: Soft, nondistended. Bowel sounds present in all quadrants. Moderate tenderness to palpation epigastric, RUQ, LUQ regions. No rebound tenderness. MUSCULOSKELETAL: Full range of motion of all joints without discomfort. INTEGUMENTARY: Diffusely jaundiced, dry skin. No rash or other significant dermatologic conditions noted. NEUROLOGIC: Cranial nerves II-XII grossly intact. No focal neurologic deficits noted. Medical Decision & Procedures ER Provider Diagnostic Interpretation: CT Abdomen/Pelvis with IV Contrast: IMPRESSION: 1. Marked progression in the patient's metastatic disease. 2. Interval development of multiple bilateral pulmonary nodules 3. Marked progression the patient's cyndy hepatis adenopathy and interval development of retroperitoneal para-aortic adenopathy 4. Interval development of multiple peritoneal tumor implants, the largest of which measures 24 mm 5. Interval enlargement of the patient's large central hepatic mass which currently measures 10 cm 6. Marked intrahepatic biliary ductal dilatation. A biliary enteric stent is visualized 7. Narrowing of the main portal vein 8. Low volume ascites 9. Multiple ventral hernias 10. Small pleural effusions and consolidative changes within the right middle lobe and both lower lobes Laboratory Results 03/09/17 14:22 Red Blood Count 4.06, Mean Corpuscular Volume 75.4, Mean Corpuscular Hemoglobin 25.1, Mean Corpuscular Hemoglobin Concent 33.3, Mean Platelet Volume 9.2, Neutrophils (%) (Auto) 86.1, Lymphocytes (%) (Auto) 7.8, Monocytes (%) (Auto) 5.4, Eosinophils (%) (Auto) 0.1, Basophils (%) (Auto) 0.1, Neutrophils # (Auto) 12.17, Lymphocytes # (Auto) 1.10, Monocytes # (Auto) 0.77, Eosinophils # (Auto) 0.02, Basophils # (Auto) 0.02 03/09/17 14:22 Test 03/09/17 14:22 03/09/17 14:26 03/09/17 14:31 03/09/17 15:05 White Blood Count 14.15 K/uL (4.8-10.8) Red Blood Count 4.06 M/uL (4.2-5.4) Hemoglobin 10.2 g/dL (12.0-16.0) Hematocrit 30.6 % (37-47) Mean Corpuscular Volume 75.4 fL (80-100) Mean Corpuscular Hemoglobin 25.1 pg (25-34) Mean Corpuscular Hemoglobin Concent 33.3 g/dl (32-36) Platelet Count 294 K/uL (130-400) Mean Platelet Volume 9.2 fL (7.4-10.4) Neutrophils (%) (Auto) 86.1 % Lymphocytes (%) (Auto) 7.8 % Monocytes (%) (Auto) 5.4 % Eosinophils (%) (Auto) 0.1 % Basophils (%) (Auto) 0.1 % Neutrophils # (Auto) 12.17 K/uL (1.4-6.5) Lymphocytes # (Auto) 1.10 K/uL (1.2-3.4) Monocytes # (Auto) 0.77 K/uL (0.11-0.59) Eosinophils # (Auto) 0.02 K/uL (0-0.5) Basophils # (Auto) 0.02 K/uL (0-0.2) RDW Standard Deviation 50.5 fL (36.4-46.3) RDW Coefficient of Variation 18.2 % (11.5-14.5) Immature Granulocyte % (Auto) 0.5 % Immature Granulocyte # (Auto) 0.07 K/uL (0.00-0.02) Prothrombin Time 13.0 SECONDS (9.0-12.0) Prothromb Time International Ratio 1.2 (0.9-1.1) Activated Partial Thromboplast Time 28.2 SECONDS (21.0-31.0) Partial Thromboplastin Ratio 1.1 Estimated GFR () 97.7 Estimated GFR (Non- 84.3 BUN/Creatinine Ratio 11.9 (10-20) Calcium Level 9.1 mg/dl (8.5-10.1) Total Bilirubin 8.2 mg/dl (0.2-1) Direct Bilirubin 6.8 mg/dl (0-0.2) Aspartate Amino Transf (AST/SGOT) 101 U/L (15-37) Alanine Aminotransferase (ALT/SGPT) 37 U/L (12-78) Alkaline Phosphatase 866 U/L (45-117) Total Protein 7.2 gm/dl (6.4-8.2) Albumin 2.0 gm/dl (3.4-5.0) Lipase 129 U/L (73-393) Bedside Hemoglobin 11.2 g/dl (12.0-16.0) Bedside Hematocrit 33 % (37-47) Bedside Sodium 130 mEq/L (135-144) Bedside Potassium 3.8 mEq/L (3.3-5.0) Bedside Chloride 93 mEq/L (101-112) Bedside Total CO2 25 mEq/l (24-31) Anion Gap 17.0 mmol/L (16-25) Bedside Blood Urea Nitrogen 9 mg/dl (7-18) Bedside Creatinine 0.5 mg/dl (0.6-1.3) Bedside Glucose (other) 140 mg/dl (70-99) Bedside Ionized Calcium (Katharina) 1.11 mmol/l (1.12-1.32) Bedside Lactic Acid Venous 3.37 mmol/L (0.90-1.70) Lactic Acid Level 2.7 mmol/L (0.4-2.0) Medications Administered Medications (Trade) Dose Ordered Sig/Luis Route Start Time Stop Time Status Last Admin Dose Admin Sodium Chloride 500 ml @ 999 mls/hr Q31M STAT IV 03/09/17 14:20 03/09/17 14:50 DC 03/09/17 14:20 999 MLS/HR Sodium Chloride (Nss 1000ml) 1,000 ml @ 999 mls/hr Q1H1M STAT IV 03/09/17 14:53 03/09/17 15:53 DC 03/09/17 15:09 999 MLS/HR Piperacillin Sod/ Tazobactam Sod (Zosyn Iv) 4.5 gm NOW STAT IV 03/09/17 14:53 03/09/17 14:57 DC 03/09/17 15:10 4.5 GM Morphine Sulfate (MoRPHine SULFATE INJ) 4 mg NOW STAT IV 03/09/17 14:53 03/09/17 14:57 DC 03/09/17 15:10 4 MG ECG Indication: tachycardia, weakness Rate (beats per minute): 93 Rhythm: normal sinus Findings: prolonged QT Change: no significant change (02/26/2017) ED Course 1430 Bedside nurse provided [id number] lab results to this provider, reviewed by myself with notable abnormalities of elevated lactic acid of 3.37, and gap of 17. Send down labs pending. 1445 GI consult, spoke on the phone with Dr. Frederick, he agrees with plans for abdominal CT and IV antibiotics, and will come evaluate the patient. 1600 Patient resting comfortably in the bed, reports pain is well-controlled at this time. Awaiting recommendations from GI. [address] Frederick, who states he had long conversation with patient and her daughters, they would like to be transferred to [facility] for further evaluation and management of her malfunctioning biliary stent and metastatic disease. 172 Patient to be transferred to [facility], Dr. Rae is the accepting doctor for a direct admission, and Dr. Ludwig () also agreeing to the transfer. 2034 Patient awaiting transport. Plan for 9:30 PM. Medical Decision Patient is alert and in no acute distress, but noted to be dehydrated and tachycardic on initial vital signs. Given her history as well as her recent procedure, primary concern for dysfunction of the biliary stent, as well as intra-abdominal infection, perforation, progression of metastatic disease. Labs are concerning for an elevated lactic acid, leukocytosis, and a substantially increased bilirubin level of 8.2, increased from 1.6 four days ago. IV fluids and IV Zosyn given. CT of abdomen/pelvis concerning for dysfunction of biliary stent, as well as progression of metastatic disease. GI consulted and recommending that patient be transferred to [facility] for a repeat ERCP versus IR percutaneous drain placement and further management of patient's condition. Impression Primary Impression: Hyperbilirubinemia Additional Impressions: Obstructive jaundice due to cancer Cholangiocarcinoma Departure Information Dispostion Transfer Acute Care Facility Condition [facility] (Stable) Referrals Agata Friend M.D. (PCP) Patient Instructions [facility] Problem Qualifiers
[2017-03-09] MEDS ORDERED: PIPERACILLIN/TAZOBACTAM 4.5 GM/100ML D5W IV STA (14:53)
[2017-03-09] MEDS ORDERED: SODIUM CHLORIDE 0.9% 1000ML 1,000 ML IV STA (14:53)
[2017-03-09] MEDS ORDERED: MoRPHine SULFATE 4 MG/ML 1 ML CARP\\VIAL IV STA (14:53)
[2017-03-09] MEDS ORDERED: OPTIRAY 320 IV PRN (15:00)
--- NOTE | 2017-03-09 15:06 | EMERGENCY ROOM VISIT NOTE ---
ED Visit Note First contact with patient: 14:01 This Patient was discussed with the Nurse practitioner, Dorothy Howell. The pertinent historical and physical exam findings were confirmed. I agree with the studies ordered and with the interpretations of these studies. I agree with the disposition and care plan.
[2017-03-09 15:16] LABS: ALKALINE PHOSPHATASE 866 U/L (45-117); ALT/SGPT 37 U/L (12-78); AST/SGOT 101 U/L (15-37); BLOOD UREA NITROGEN 9 mg/dl (7-18); BUN/CREATININE RATIO 11.9 (10-20); CALCIUM 9.1 mg/dl (8.5-10.1); CARBON DIOXIDE 25 mmol/L (21-32); CHLORIDE 96 mmol/L (98-107); CREATININE 0.72 mg/dl (0.60-1.20); GLUCOSE 143 mg/dl (70-99); POTASSIUM 3.3 mmol/L (3.5-5.1); SODIUM 130 mmol/L (136-145)
--- NOTE | 2017-03-09 16:10 | DIAGNOSTIC IMAGING REPORT ---
CT ABD/PELVIS IV CONTRAST ONLY CLINICAL HISTORY: Abdominal pain, jaundice, recent biliary stent. COMPARISON STUDY: 01/12/2017 TECHNIQUE: Following the IV administration of 93 mL of Optiray-320, CT scan of the abdomen and pelvis was performed from the lung bases to the proximal femurs. Images are reviewed in the axial, sagittal, and coronal planes. IV contrast was administered without complication. CT DOSE: 671.45 mGycm FINDINGS: Lower chest: There are small bilateral pleural effusions. There are multiple subcentimeter pulmonary nodules which are not visualized the prior study. There are new airspace opacities within the right middle lobe and both lower lobes with air bronchograms. There is a hiatal hernia. Liver: There is an enlarging 10 cm central hepatic mass. There is marked biliary ductal dilatation. There is narrowing of the main portal vein. There is perihepatic fluid. There is a biliary enteric stent present. Gallbladder: The gallbladder is distended. There is a gallbladder calculus present. Spleen: Normal in size and attenuation. Pancreas: Unremarkable. Adrenal glands: Unremarkable. Kidneys: There is symmetric renal cortical enhancement. The kidneys are normal in size without hydronephrosis. Bowel: There are no transition zones indicate bowel obstruction. There is a moderate amount of stool present within the right colon. There are multiple ventral hernias. 2 hernias contain bowel loops, but are not currently resulting in bowel obstruction. Peritoneum: There are multiple peritoneal soft tissue nodules. The largest is located in the right paracolic gutter measuring 24 mm. There is also a small capsular hepatic implant. Vasculature: The abdominal aorta is normal in course and caliber. Adenopathy: Since the prior study, the patient has developed pathologic retroperitoneal adenopathy. There is been marked enlargement in the hypodense cyndy hepatis lymph nodes. Pelvic viscera: The bladder, and pelvic viscera are unremarkable. Skeletal structures: No destructive osseous lesions are seen. IMPRESSION: 1. Marked progression in the patient's metastatic disease. 2. Interval development of multiple bilateral pulmonary nodules 3. Marked progression the patient's cyndy hepatis adenopathy and interval development of retroperitoneal para-aortic adenopathy 4. Interval development of multiple peritoneal tumor implants, the largest of which measures 24 mm 5. Interval enlargement of the patient's large central hepatic mass which currently measures 10 cm 6. Marked intrahepatic biliary ductal dilatation. A biliary enteric stent is visualized 7. Narrowing of the main portal vein 8. Low volume ascites 9. Multiple ventral hernias 10. Small pleural effusions and consolidative changes within the right middle lobe and both lower lobes Electronically signed by: Tommy Crum M.D. 03/09/2017 4:07 PM Dictated Date/Time: 03/09/2017 3:48 PM
--- NOTE | 2017-03-09 18:37 | PROGRESS NOTE ---
DATE: 03/09/2017 GASTROENTEROLOGY CONSULT NOTE EMERGENCY ROOM PROVIDER: SOFIA Greco and Dr. Julian Santa. CHIEF COMPLAINT: Jaundice, lower abdominal pain, tachycardia. HISTORY OF PRESENT ILLNESS: Mrs. Vizcarra is a 72-year-old white female who speaks English only. Information was gathered from her 2 daughters that were present in the room. The patient is known to me since mid December at which time a large mass was identified in the right lobe of the liver, by ultrasound. This underwent fine needle aspiration and revealed rare atypical cells suspicious for carcinoma. These were identified by the common hepatic duct brushings by ERCP. 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 This contain necrotic debris and malignant epithelial cells. These have prominent nuclei without definitive glandular or paracytic differentiation. This stained positive for CK7, polyclonal CEA and was negative for CK20, CD34 and arginase-1. These were findings consistent with poorly differentiated adenocarcinoma for which the differential likely favors cholangiocarcinoma, although primary hepatoma was not fully excluded. At the time of her initial diagnosis an ERCP was performed that placed 2 stents, a 7-Slovak 15 cm into the right main and a 7-Slovak 12 cm into the right system above the confluence. Her initial bilirubin was 4 and following stent placement, she did well with the bilirubin decreasing to 1.5. On March 05, the patient underwent ERCP for stent replacement. Prior to the procedure, her bilirubin was 1.6. One of the stents had migrated up the bile duct and was successfully removed as was the stent that was in the left main. Despite several attempts, wire access could not be regained into the left system, but did seem to cross the confluence towards the right system and a 7-Slovak 10 cm long stent was placed. The patient was also given Cipro 500 mg twice daily, during the procedure and afterwards orally. The patient's daughter reported that over the weekend, the patient had increasing fatigue and a vague left lower quadrant abdominal pain of uncertain significance. The patient had no rigors described, although felt cold yesterday that she thought was related to the climate outside. She continues to be fatigued. On presentation to the Emergency Room this afternoon, the patient was found to have a bilirubin of 8.2, a white count of 14.1 and a lactate level of 2.7, which is elevated. She was given Zosyn and IV fluids and a followup CT scan was performed which revealed significant progression of the large mass in the right lobe of the liver, increase in the bulky adenopathy in the cyndy hepatis region, new retroperitoneal lymph nodes, new peritoneal implants and new bilateral pulmonary nodules, likely suggesting spread. The patient had seen oncology locally; however, had declined any chemotherapy or other treatments. PAST MEDICAL HISTORY: Includes hypertension, SVT. HOME MEDICATIONS: Include ciprofloxacin, diltiazem and ibuprofen daily. ALLERGIES: She has no known drug allergies. FAMILY HISTORY: Noncontributory. SOCIAL HISTORY: The patient denies tobacco usage, is , retired and lives with her children. REVIEW OF SYSTEMS: Otherwise noncontributory based on 14-point exam except for mentioned above. The patient denied any cough, sputum production, hematemesis, coffee-ground emesis, hemoptysis, melena or bright red blood per rectum. PHYSICAL EXAMINATION: VITAL SIGNS: On admission in the Emergency Room today, temperature was afebrile at 36.4, heart rate 120, respirations 20, blood pressure 114/71, 95% on room air. Following fluids, the heart rate did come down considerably to the 80-90 range. Blood pressure remained stable at 113/81 with pulse ox of 95% on 3 liters nasal cannula. GENERAL: The patient is resting comfortably, received pain management and the saline and Zosyn above. The patient is awake, alert and oriented to 3, although speaks only English and all communication was through her children. HEENT: Sclerae are anicteric. Skin is icteric. Conjunctivae are moist. Oral mucosa is slightly parched. HEART: Normal S1, S2. LUNGS: Clear to auscultation. ABDOMEN: Soft, nontender, without rebound or guarding. I do not appreciate tense ascites or shifting dullness. EXTREMITIES: Without clubbing, cyanosis or edema. RECTAL: Deferred. LABORATORY DATA: I reviewed the available laboratory studies. IMPRESSION AND PLAN: Mrs. Vizcarra has significant progression over a short -month interval of the sizable lesion and adenopathy originally identified in mid December. At this time, the stent although in the bile duct and perhaps in the region of the right main or near the confluence is not adequately providing drainage. There are dilated ducts, particularly in the left lobe of the liver that do not appear to be draining properly. There is an extensive progression of tumor burden throughout the patient's chest, abdomen and this is certainly a concerning aspect of the patient's deterioration. Although, cholangitis may be present and IV antibiotics were started in the Emergency Room, although the patient was on oral Cipro twice daily at home since the time of the ERCP. I spoke with the family at length regarding the options which included: 1. Reattempt bile duct instrumentation with stent removal and attempts of replacement for improved drainage, locally at [facility]. Unfortunately, we do not have interventional radiology available that will provide an alternative route should ERCP be ineffective. The other alternative is to transfer the patient to [facility] for either reattempted ERCP and if unsuccessful interventional radiology. This may permit internal and external drainage and ultimately placement of metallic stents that may reduce her eliminate the need for future ERCPs. We spoke for some time this evening regarding plastic and metal stents and the patient's family would like to be in the decision if this is made. Also the equal importance is to consider oncology input and ultimately palliative care, given the rate of progression in the absence of any planned chemotherapy at the patient's decision. I did speak with the transfer center at [facility] along with Dr. Granado and Dr. Ludwig and they have accepted the patient and plan to transfer the patient to step down unit with anticipation of ERCP attempt tomorrow and stent placement and/or percutaneous approach. The details of the patient's history were discussed with them. I also informed the family that the [facility] has accepted their transfer and with the plan as outlined above. In the interim, please send any discs that have all CT and ERCP images for their review. Additionally, the pathology reports from the ERCP brushings and EUS fine needle aspiration in December would be helpful as well. All questions answered. These recommendations were discussed with Louann and Dr. Santa from the Emergency Room. Thank you for allowing me to participate in this patient's care. MARCIN
[2017-03-09] MEDS ORDERED: SODIUM CHLORIDE 0.9% 1000ML 1,000 ML IV SCH (20:45)
[2017-03-09 21:26] VITALS: BP 111/75; PULSE 103; TEMP 36.4; O2SAT 96
[2017-03-09 21:59] LABS: URINE APPEARANCE CLEAR (CLEAR); URINE COLOR DK YELLOW; URINE EPITHELIAL CELL AUTO >30 /lpf (0-5); URINE NITRITE NEG (NEG); URINE SPECIFIC GRAVITY > 1.045 (1.000-1.030); UROBILINOGEN NEG (NEG); ZZUR CULT IF INDIC CLEAN CATCH YES
[2017-03-09 22:06] LABS: URINE BILIRUBIN 3+ (NEG)
[2017-03-09 22:07] LABS: MANUAL MICROSCOPIC REQUIRED? NO; REVIEW REQ? NO
== END 2017-03-09 21:27 | disposition short-term general hospital (02) ==
LOC: C.EDB 13:29
DX: E80.6 Other disorders of bilirubin metabolism (principal); K83.1 Obstruction of bile duct; C22.1 Intrahepatic bile duct carcinoma; I10 Essential (primary) hypertension; E86.0 Dehydration; D49.89 Neoplasm of unspecified behavior of other specified sites; Z98.890 Other specified postprocedural states